=== PATIENT | male | born 1950 | race Caucasian/White ===

== ENCOUNTER 2021-01-16 09:30 | Inpatient (IN) ==
[2021-01-16 10:56] LABS: Appearance Urine Turbid (Clear); Bilirubin Urine Negative (Negative); Blood Urine 3+ (Negative); Glucose Urine UA Negative (Negative); Ketones Urine Negative (Negative); Leukocyte Esterase Urine Negative (Negative); Nitrite Urine Negative (Negative); Protein Urine 3+ (Negative); Specific Gravity Urine 1.025 (1.000-1.030); Urobilinogen Urine Negative (Negative)
[2021-01-16 10:57] LABS: Color Urine Red
[2021-01-16 11:01] LABS: Bacteria Urine Negative (Negative); Epithelial Cell Urine 0-5 /lpf (0-5); RBC Urine >30 /hpf (0-4); WBC Urine >30 /hpf (0-5)
[2021-01-16 11:02] LABS: Hematocrit (blood only) 16.5 % (42-52); Hemoglobin 5.1 g/dL (14.0-18.0); Mean Corpuscular Hemoglobin 28.3 pg (25-34); Mean Corpuscular Hgb Conc 30.9 g/dL (32-36); Mean Corpuscular Volume 91.7 fL (80-100); Mean Platelet Volume 9.4 fL (7.4-10.4); Platelet Count 526 K/uL (130-400); RDW Coefficient of Variation 20.5 % (11.5-14.5); RDW Standard Deviation 68.3 fL (36.4-46.3); White Blood Count 10.18 K/uL (4.8-10.8)
[2021-01-16 11:09] LABS: Albumin Level 2.1 gm/dl (3.4-5.0); BUN Creatinine Ratio 16.5 (10-20); Calcium 7.2 mg/dl (8.5-10.1); Creatinine Clr Calc Pharmacy 72.5 ml/min; Est GFR (African American) 72.5 ml/min; Est GFR (Non-African American) 62.6 ml/min; Potassium 3.9 mmol/L (3.5-5.1)
[2021-01-16 11:12] LABS: Albumin Globulin Ratio 0.4 (0.9-2); Bilirubin,Total 0.9 mg/dl (0.2-1); Globulin 4.8 gm/dl (2.5-4.0); Total Protein 6.9 gm/dl (6.4-8.2)
[2021-01-16 11:13] LABS: INR 1.3 (0.9-1.1); Partial Thromboplastin Ratio > 5.3; Prothrombin Time 13.1 Seconds (9.0-12.0)
[2021-01-16 11:15] LABS: Partial Thromboplastin Time > 139.0 Seconds (21.0-31.0)
[2021-01-16] MEDS ORDERED: SODIUM CHLORIDE 0.9% 250 ML IV PRN ×2 (11:17→22:16)
[2021-01-16 11:23] LABS: Anisocytosis Present; Basophils # (auto) 0.03 K/uL (0-0.2); Basophils % (auto) 0.3 %; Eosinophils # (auto) 0.02 K/uL (0-0.5); Eosinophils % (auto) 0.2 %; Hypochromasia Present; Immature Granulocytes # (auto) 0.02 K/uL (0.00-0.02); Immature Granulocytes % (auto) 0.2 %; Lymphocytes # (auto) 1.36 K/uL (1.2-3.4); Lymphocytes % (auto) 13.4 %; Monocytes # (auto) 1.23 K/uL (0.11-0.59); Monocytes % (auto) 12.1 %; Neutrophils # (auto) 7.52 K/uL (1.4-6.5); Neutrophils % (auto) 73.8 %; Stomatocytes 1+
--- NOTE | 2021-01-16 11:44 | Emergency Department Note ---
History of Present Illness General Chief complaint: Hematuria Stated complaint: PEEING BLOOD Time Seen by Provider: 01/16/21 10:17 History of Present Illness Maximum Pain Intensity: 0 This is a 70-year-old male that presents to the emergency department via private vehicle accompanied by female with complaints of "peeing blood". The patient notes that yesterday around 4 PM when he finished golfing he began to urinate blood. He states that he is currently anticoagulated on Eliquis for PE. The patient notes that he has a history of metastatic colon cancer with a stent in his colon. He also notes a colostomy. His colorectal surgeon is Dr. Bardales in [facility] and his oncologist is Dr. Layne. Patient denies any fevers, chills, nausea, vomiting, chest pain, shortness of breath or abdominal pain. Home Medications Medication Instructions Recorded Confirmed Type lactobacillus combination no.4 3 3,000 mmu cells PO QAM 10/19/18 01/16/21 History billion cell capsule (Probiotic) omeprazole magnesium 20 mg 20 mg PO QAM 10/19/18 01/16/21 History tablet,delayed release (Prilosec OTC) Super Adair Plus 1 tab PO DAILY 01/16/21 01/16/21 History apixaban 5 mg tablet (Eliquis) 5 mg PO BID 01/16/21 01/16/21 History ascorbic acid (vitamin C) 1,000 mg 1 g PO QAM 01/16/21 01/16/21 History tablet magnesium oxide-magnesium amino 133 mg PO BID 01/16/21 01/16/21 History acid chelate 133 mg tablet (Cj-Agzh-Jqebsjy) nystatin-triamcinolone 100,000 1 applic TOPICAL UD PRN 01/16/21 01/16/21 History unit/g-0.1 % topical cream ondansetron HCl 8 mg tablet 8 mg PO UD PRN 01/16/21 01/16/21 History zinc oxide 2 applic TOPICAL UD 01/16/21 01/16/21 History Allergies Allergy/AdvReac Type Severity Reaction Status Date / Time No Known Allergies Allergy Unverified 01/16/21 10:26 Past Med/Surg History Medical History Colon cancer Colon cancer metastasized to multiple sites Hydronephrosis Large bowel obstruction Pulmonary embolism Surgical History H/O colectomy H/O exploratory laparotomy H/O hernia repair Family History Father Prostate cancer Social History Smoking Status: Light tobacco smoker Tobacco Type: Cigars Hx Alcohol Use: Yes (3-4 drinks daily ) Alcohol type: beer, wine and hard liquor Hx Substance Use: No Preferred Language: Italian Communication Ability: Effective Mailing Machine Assistant Required: No Beliefs That Will Affect Care: None marital status: Current Living Situation: Spouse Current Living Situation Comment: Lives with current occupational status: retired Other Information That Helps Us Care for You: No Feels Safe at Home: Yes Safety Concerns: Feels Safe At This Time Assistive Devices: Glasses Review of Systems A total of 10 systems reviewed and were otherwise negative Physical Exam Vital Signs Vital Signs - 24 hr 01/16/21 09:42 01/16/21 10:07 01/16/21 10:30 Temperature 36.0 C L Temperature Source Temporal Artery Scan Pulse Rate 102 H 105 H 103 H Pulse Rate [Finger] Pulse Rate from SpO2 Sensor 105 H 104 H Respiratory Rate 20 21 22 Respiratory Effort / Characteristics Respiratory Depth Blood Pressure 116/77 145/82 H 124/83 Blood Pressure [Right Arm] Blood Pressure Mean 90 103 96 Blood Pressure Mean [Right Arm] Pulse Oximetry 100 100 99 Oxygen Delivery Method Room Air Sepsis Recent Fever Within 48 Hours No Sepsis New/Unexplained Change in Mental Status N/A Sepsis Action Taken by Nursing No Action Required 01/16/21 10:31 01/16/21 11:00 01/16/21 11:30 Temperature Temperature Source Pulse Rate 98 H 100 H Pulse Rate [Finger] 103 H Pulse Rate from SpO2 Sensor 98 H 100 H Respiratory Rate 16 17 24 Respiratory Effort / Characteristics Non-Labored Respiratory Depth Normal Blood Pressure 131/80 132/80 Blood Pressure [Right Arm] 124/83 Blood Pressure Mean 97 97 Blood Pressure Mean [Right Arm] 96 Pulse Oximetry 99 99 98 Oxygen Delivery Method Room Air Sepsis Recent Fever Within 48 Hours Sepsis New/Unexplained Change in Mental Status Sepsis Action Taken by Nursing 01/16/21 12:00 01/16/21 12:30 01/16/21 13:01 Temperature Temperature Source Pulse Rate 104 H 101 H 103 H Pulse Rate [Finger] Pulse Rate from SpO2 Sensor 101 H 103 H Respiratory Rate 22 22 28 H Respiratory Effort / Characteristics Respiratory Depth Blood Pressure 137/88 145/85 H 133/85 Blood Pressure [Right Arm] Blood Pressure Mean 104 105 101 Blood Pressure Mean [Right Arm] Pulse Oximetry 99 100 Oxygen Delivery Method Sepsis Recent Fever Within 48 Hours Sepsis New/Unexplained Change in Mental Status Sepsis Action Taken by Nursing 01/16/21 13:37 01/16/21 14:00 01/16/21 14:30 Temperature Temperature Source Pulse Rate 111 H 97 H 97 H Pulse Rate [Finger] Pulse Rate from SpO2 Sensor 97 H 97 H Respiratory Rate 18 23 27 H Respiratory Effort / Characteristics Respiratory Depth Blood Pressure 149/93 H 125/81 Blood Pressure [Right Arm] Blood Pressure Mean 111 95 Blood Pressure Mean [Right Arm] Pulse Oximetry 98 99 Oxygen Delivery Method Sepsis Recent Fever Within 48 Hours Sepsis New/Unexplained Change in Mental Status Sepsis Action Taken by Nursing 01/16/21 15:00 01/16/21 15:30 Temperature Temperature Source Pulse Rate 96 H Pulse Rate [Finger] Pulse Rate from SpO2 Sensor 94 H Respiratory Rate 33 H Respiratory Effort / Characteristics Respiratory Depth Blood Pressure 149/87 H 132/79 Blood Pressure [Right Arm] Blood Pressure Mean 107 96 Blood Pressure Mean [Right Arm] Pulse Oximetry 99 Oxygen Delivery Method Sepsis Recent Fever Within 48 Hours Sepsis New/Unexplained Change in Mental Status Sepsis Action Taken by Nursing VITAL SIGNS - Vital signs and nursing notes were reviewed. Stable and afebrile. GENERAL -70-year-old male appearing his stated age who is in no acute distress. Communicates well with provider and answers questions appropriately. SKIN - Without rashes. No meningeal or petechial rash. HEAD - NC/AT. LUNGS - Chest wall symmetric without accessory muscle use, intercostals retractions, or central cyanosis. Normal vesicular breath sounds CTA B/L. No wheezes, rales, or rhonchi appreciated. CARDIAC - RRR with S1/S2. No murmur, rubs, or gallops appreciated. ABDOMEN - Abdominal contour normal without pulsations or visible masses. BS normoactive all four quadrants. Left lower quadrant ostomy noted. No black tarry output or blood in the ostomy bag. No tenderness, palpable masses, hepatosplenomegaly, or ascites noted. NEUROLOGIC - Cranial nerves II through XII grossly intact. PSYCH - A&O, and cooperates fully with examiner. Pt is very pleasant and interacts well with examiner. Course Administered Medications Ascorbic Acid (Ascorbic Acid 500 Mg Tab) 1,000 mg PO QAM AD Stop: 02/16/21 08:59 Last Admin: 01/17/21 07:59 Dose: 1,000 mg Documented by: [id number] Lactobacillus Acidoph/Casei/Rhamnos (Advanced Probiotic 1250 Mg Capsule) 2 cap PO QAM AD Stop: 02/16/21 08:59 Last Admin: 01/17/21 07:59 Dose: 2 cap Documented by: [id number] Magnesium Oxide (Magnesium Oxide 400 Mg Tab) 400 mg PO BID AD Stop: 02/15/21 20:59 Last Admin: 01/17/21 21:00 Dose: 400 mg Documented by: [id number] Admin: 01/17/21 07:59 Dose: 400 mg Documented by: [id number] Admin: 01/16/21 21:48 Dose: 400 mg Documented by: [id number] Multivitamins/Minerals (Calcium 600mg + Vit D 400 Iu Tab) 1 tab PO DAILY AD Stop: 02/16/21 08:59 Last Admin: 01/17/21 07:59 Dose: 1 tab Documented by: [id number] Pantoprazole Sodium (Pantoprazole 40 Mg Tab) 40 mg PO QAM [facility] Stop: 02/16/21 08:59 Last Admin: 01/17/21 07:59 Dose: 40 mg Documented by: [id number] Discontinued Medications Furosemide (Furosemide 40 Mg/4 Ml Vial) 40 mg IV 1930 ONE Stop: 01/16/21 19:31 Last Admin: 01/16/21 22:18 Dose: Not Given Documented by: [id number] Heparin Sodium (Beef Lung) (Heparin 10 Unit/Ml 5 Ml Flush) Confirm Administered Dose 5 ml FLUSH .STK-MED ONE Stop: 01/17/21 02:04 Last Admin: 01/17/21 02:34 Dose: 5 ml Documented by: [id number] Heparin Sodium (Beef Lung) (Heparin 10 Unit/Ml 5 Ml Flush) Confirm Administered Dose 5 ml FLUSH .STK-MED ONE Stop: 01/17/21 06:15 Last Admin: 01/17/21 06:14 Dose: 5 ml Documented by: [id number] Furosemide 20 mg/ Syringe 2 mls @ 4 mls/min IV ONE ONE Stop: 01/16/21 22:46 Last Admin: 01/16/21 22:45 Dose: 4 mls/min Documented by: [id number] Ioversol (Optiray 320 100ml) 94 ml IV ONCE ONE Stop: 01/16/21 11:47 Last Admin: 01/16/21 11:46 Dose: 94 ml Documented by: [id number] Critical Care Time Critical Care Time: Yes Total Critical Care Time: 60 I have personally spent about 60 minutes of critical care time in the direct management of this patient. This includes bedside care, interpretation of diagnostic studies, and testing, discussion with consultants, patient, and family members, and other required patient management activities. This 60 minutes is in excess of all separately billable procedures. Medical Decision Making Laboratory Data Result diagrams: 01/17/21 06:13 01/17/21 06:13 Lab Results 01/16/21 01/16/21 01/16/21 Range/Units 10:05 10:08 10:08 WBC 10.18 (4.8-10.8) K/uL RBC 1.80 L (4.7-6.1) M/uL Hgb 5.1 L* (14.0-18.0) g/dL Hct 16.5 L* (42-52) % MCV 91.7 (80-100) fL MCH 28.3 (25-34) pg MCHC 30.9 L (32-36) g/dL RDW Std Deviation 68.3 H (36.4-46.3) fL RDW Coeff of Patricia 20.5 H (11.5-14.5) % Plt Count 526 H (130-400) K/uL MPV 9.4 (7.4-10.4) fL Immature Gran % (Auto) 0.2 % Neut % (Auto) 73.8 % Lymph % (Auto) 13.4 % [place] % (Auto) 12.1 % Eos % (Auto) 0.2 % Baso % (Auto) 0.3 % Reticulocyte % (Auto) 3.7 H (0.5-2.0) % Neut # (Auto) 7.52 H (1.4-6.5) K/uL Lymph # (Auto) 1.36 (1.2-3.4) K/uL [place] # (Auto) 1.23 H (0.11-0.59) K/uL Eos # (Auto) 0.02 (0-0.5) K/uL Baso # (Auto) 0.03 (0-0.2) K/uL Reticulocyte # 0.07 (0.02-0.10) 10^6/uL Immature Gran # (Auto) 0.02 (0.00-0.02) K/uL Hypochromasia Present Anisocytosis Present Stomatocytes 1+ PT (9.0-12.0) Seconds INR (0.9-1.1) APTT (21.0-31.0) Seconds PTT Ratio Sodium (136-145) mmol/L Potassium (3.5-5.1) mmol/L Chloride (98-107) mmol/L Carbon Dioxide (21-32) mmol/L Anion Gap (3-11) BUN (7-18) mg/dl Creatinine (0.6-1.4) mg/dl Est Cr Clr Drug Dosing ml/min Est GFR ( Amer) ml/min Est GFR (Non-Af Amer) ml/min BUN/Creatinine Ratio (10-20) Glucose (70-99) mg/dl Calcium (8.5-10.1) mg/dl Iron (35-175) mcg/dl TIBC (250-450) mcg/dl Transferrin (200-360) mg/dl Ferritin (8-388) ng/ml Total Bilirubin (0.2-1) mg/dl AST (15-37) U/L ALT (12-78) U/L Alkaline Phosphatase (45-117) U/L Troponin I (0-0.045) ng/ml Total Protein (6.4-8.2) gm/dl Albumin (3.4-5.0) gm/dl Globulin (2.5-4.0) gm/dl Albumin/Globulin Ratio (0.9-2) Urine Color Red Urine Appearance Turbid A (Clear) Urine pH 7.0 (4.5-7.5) Ur Specific [place] 1.025 (1.000-1.030) Urine Protein 3+ H (Negative) Urine Glucose (UA) Negative (Negative) Urine Ketones Negative (Negative) Urine Blood 3+ H (Negative) Urine Nitrite Negative (Negative) Urine Bilirubin Negative (Negative) Urine Urobilinogen Negative (Negative) Ur Leukocyte Esterase Negative (Negative) Urine RBC >30 H (0-4) /hpf Urine WBC >30 H (0-5) /hpf Ur Epithelial Cells 0-5 (0-5) /lpf Urine Bacteria Negative (Negative) COVID-19 Eval Order SARS-CoV-2 (PCR) (Negative) Blood Type Antibody Screen Crossmatch 01/16/21 01/16/21 01/16/21 Range/Units 10:09 10:09 10:09 WBC (4.8-10.8) K/uL RBC (4.7-6.1) M/uL Hgb (14.0-18.0) g/dL Hct (42-52) % MCV (80-100) fL MCH (25-34) pg MCHC (32-36) g/dL RDW Std Deviation (36.4-46.3) fL RDW Coeff of Patricia (11.5-14.5) % Plt Count (130-400) K/uL MPV (7.4-10.4) fL Immature Gran % (Auto) % Neut % (Auto) % Lymph % (Auto) % [place] % (Auto) % Eos % (Auto) % Baso % (Auto) % Reticulocyte % (Auto) (0.5-2.0) % Neut # (Auto) (1.4-6.5) K/uL Lymph # (Auto) (1.2-3.4) K/uL [place] # (Auto) (0.11-0.59) K/uL Eos # (Auto) (0-0.5) K/uL Baso # (Auto) (0-0.2) K/uL Reticulocyte # (0.02-0.10) 10^6/uL Immature Gran # (Auto) (0.00-0.02) K/uL Hypochromasia Anisocytosis Stomatocytes PT 13.1 H (9.0-12.0) Seconds INR 1.3 H (0.9-1.1) APTT > 139.0 H* (21.0-31.0) Seconds PTT Ratio > 5.3 Sodium 139 (136-145) mmol/L Potassium 3.9 (3.5-5.1) mmol/L Chloride 107 (98-107) mmol/L Carbon Dioxide 25 (21-32) mmol/L Anion Gap 7.0 (3-11) BUN 19 H (7-18) mg/dl Creatinine 1.16 (0.6-1.4) mg/dl Est Cr Clr Drug Dosing 72.5 ml/min Est GFR ( Amer) 72.5 ml/min Est GFR (Non-Af Amer) 62.6 ml/min BUN/Creatinine Ratio 16.5 (10-20) Glucose 122 H (70-99) mg/dl Calcium 7.2 L (8.5-10.1) mg/dl Iron 22 L (35-175) mcg/dl TIBC 252 (250-450) mcg/dl Transferrin 195 L (200-360) mg/dl Ferritin 40.3 (8-388) ng/ml Total Bilirubin 0.9 (0.2-1) mg/dl AST 41 H (15-37) U/L ALT 27 (12-78) U/L Alkaline Phosphatase 118 H (45-117) U/L Troponin I (0-0.045) ng/ml Total Protein 6.9 (6.4-8.2) gm/dl Albumin 2.1 L (3.4-5.0) gm/dl Globulin 4.8 H (2.5-4.0) gm/dl Albumin/Globulin Ratio 0.4 L (0.9-2) Urine Color Urine Appearance (Clear) Urine pH (4.5-7.5) Ur Specific [place] (1.000-1.030) Urine Protein (Negative) Urine Glucose (UA) (Negative) Urine Ketones (Negative) Urine Blood (Negative) Urine Nitrite (Negative) Urine Bilirubin (Negative) Urine Urobilinogen (Negative) Ur Leukocyte Esterase (Negative) Urine RBC (0-4) /hpf Urine WBC (0-5) /hpf Ur Epithelial Cells (0-5) /lpf Urine Bacteria (Negative) COVID-19 Eval Order SARS-CoV-2 (PCR) (Negative) Blood Type Antibody Screen Crossmatch 01/16/21 01/16/21 01/16/21 Range/Units 11:24 11:24 11:35 WBC (4.8-10.8) K/uL RBC (4.7-6.1) M/uL Hgb (14.0-18.0) g/dL Hct (42-52) % MCV (80-100) fL MCH (25-34) pg MCHC (32-36) g/dL RDW Std Deviation (36.4-46.3) fL RDW Coeff of Patricia (11.5-14.5) % Plt Count (130-400) K/uL MPV (7.4-10.4) fL Immature Gran % (Auto) % Neut % (Auto) % Lymph % (Auto) % [place] % (Auto) % Eos % (Auto) % Baso % (Auto) % Reticulocyte % (Auto) (0.5-2.0) % Neut # (Auto) (1.4-6.5) K/uL Lymph # (Auto) (1.2-3.4) K/uL [place] # (Auto) (0.11-0.59) K/uL Eos # (Auto) (0-0.5) K/uL Baso # (Auto) (0-0.2) K/uL Reticulocyte # (0.02-0.10) 10^6/uL Immature Gran # (Auto) (0.00-0.02) K/uL Hypochromasia Anisocytosis Stomatocytes PT (9.0-12.0) Seconds INR (0.9-1.1) APTT (21.0-31.0) Seconds PTT Ratio Sodium (136-145) mmol/L Potassium (3.5-5.1) mmol/L Chloride (98-107) mmol/L Carbon Dioxide (21-32) mmol/L Anion Gap (3-11) BUN (7-18) mg/dl Creatinine (0.6-1.4) mg/dl Est Cr Clr Drug Dosing ml/min Est GFR ( Amer) ml/min Est GFR (Non-Af Amer) ml/min BUN/Creatinine Ratio (10-20) Glucose (70-99) mg/dl Calcium (8.5-10.1) mg/dl Iron (35-175) mcg/dl TIBC (250-450) mcg/dl Transferrin (200-360) mg/dl Ferritin (8-388) ng/ml Total Bilirubin (0.2-1) mg/dl AST (15-37) U/L ALT (12-78) U/L Alkaline Phosphatase (45-117) U/L Troponin I < 0.015 (0-0.045) ng/ml Total Protein (6.4-8.2) gm/dl Albumin (3.4-5.0) gm/dl Globulin (2.5-4.0) gm/dl Albumin/Globulin Ratio (0.9-2) Urine Color Urine Appearance (Clear) Urine pH (4.5-7.5) Ur Specific [place] (1.000-1.030) Urine Protein (Negative) Urine Glucose (UA) (Negative) Urine Ketones (Negative) Urine Blood (Negative) Urine Nitrite (Negative) Urine Bilirubin (Negative) Urine Urobilinogen (Negative) Ur Leukocyte Esterase (Negative) Urine RBC (0-4) /hpf Urine WBC (0-5) /hpf Ur Epithelial Cells (0-5) /lpf Urine Bacteria (Negative) COVID-19 Eval Order Covid19 at [facility] SARS-CoV-2 (PCR) (Negative) Blood Type B Positive Antibody Screen NEGATIVE Crossmatch See Detail 01/16/21 Range/Units 11:35 WBC (4.8-10.8) K/uL RBC (4.7-6.1) M/uL Hgb (14.0-18.0) g/dL Hct (42-52) % MCV (80-100) fL MCH (25-34) pg MCHC (32-36) g/dL RDW Std Deviation (36.4-46.3) fL RDW Coeff of Patricia (11.5-14.5) % Plt Count (130-400) K/uL MPV (7.4-10.4) fL Immature Gran % (Auto) % Neut % (Auto) % Lymph % (Auto) % [place] % (Auto) % Eos % (Auto) % Baso % (Auto) % Reticulocyte % (Auto) (0.5-2.0) % Neut # (Auto) (1.4-6.5) K/uL Lymph # (Auto) (1.2-3.4) K/uL [place] # (Auto) (0.11-0.59) K/uL Eos # (Auto) (0-0.5) K/uL Baso # (Auto) (0-0.2) K/uL Reticulocyte # (0.02-0.10) 10^6/uL Immature Gran # (Auto) (0.00-0.02) K/uL Hypochromasia Anisocytosis Stomatocytes PT (9.0-12.0) Seconds INR (0.9-1.1) APTT (21.0-31.0) Seconds PTT Ratio Sodium (136-145) mmol/L Potassium (3.5-5.1) mmol/L Chloride (98-107) mmol/L Carbon Dioxide (21-32) mmol/L Anion Gap (3-11) BUN (7-18) mg/dl Creatinine (0.6-1.4) mg/dl Est Cr Clr Drug Dosing ml/min Est GFR ( Amer) ml/min Est GFR (Non-Af Amer) ml/min BUN/Creatinine Ratio (10-20) Glucose (70-99) mg/dl Calcium (8.5-10.1) mg/dl Iron (35-175) mcg/dl TIBC (250-450) mcg/dl Transferrin (200-360) mg/dl Ferritin (8-388) ng/ml Total Bilirubin (0.2-1) mg/dl AST (15-37) U/L ALT (12-78) U/L Alkaline Phosphatase (45-117) U/L Troponin I (0-0.045) ng/ml Total Protein (6.4-8.2) gm/dl Albumin (3.4-5.0) gm/dl Globulin (2.5-4.0) gm/dl Albumin/Globulin Ratio (0.9-2) Urine Color Urine Appearance (Clear) Urine pH (4.5-7.5) Ur Specific [place] (1.000-1.030) Urine Protein (Negative) Urine Glucose (UA) (Negative) Urine Ketones (Negative) Urine Blood (Negative) Urine Nitrite (Negative) Urine Bilirubin (Negative) Urine Urobilinogen (Negative) Ur Leukocyte Esterase (Negative) Urine RBC (0-4) /hpf Urine WBC (0-5) /hpf Ur Epithelial Cells (0-5) /lpf Urine Bacteria (Negative) COVID-19 Eval Order SARS-CoV-2 (PCR) NEGATIVE (Negative) Blood Type Antibody Screen Crossmatch Imaging Data Radiologist's Impression: Abdomen/Pelvis CT 01/16/21 11:[address] WITH IV CONTRAST CT DOSE: 1149.59 mGy.cm HISTORY: Hematuria. Anemia. TECHNIQUE: Multiaxial CT images of the abdomen and pelvis were performed following the use of intravenous contrast. A dose lowering technique was utilized adhering to the principles of ALARA. COMPARISON STUDY: Abdomen and pelvis CT 10/19/2018. FINDINGS: Multiple bilateral pulmonary nodules with the largest in the lingula measuring 1.8 cm. This is consistent with metastatic disease. Trace left effusion. There is a 2.6 cm soft tissue nodule within the fat-containing hiatus hernia. This is consistent with peritoneal spread of tumor. There are multiple additional scattered omental and peritoneal implants seen throughout the abdomen and pelvis consistent with metastatic disease. There is a metallic stent seen within the sigmoid colon with an irregular mass surrounding the metallic stent. This mass likely extends and invades into the the left bladder dome. There is hyperdense material within the bladder likely representing blood products. The mass also extends within the left lower quadrant soft tissues and into the perirectal soft tissues. There is left greater than right peritoneal thickening consistent with metastatic disease. Small focus of extraluminal gas extending to the sigmoid stent on image 316. This is consistent with microperforation/ulceration of the surrounding tumor. There is a small amount of ascites and mild body wall edema. There is a 2.3 cm hypodense lesion within the right hepatic lobe. This likely represents metastatic disease. The main portal vein is patent. The spleen and adrenal glands unremarkable. There are a few right renal cysts. There is moderate left hydroureteronephrosis. The ureters dilated to the level of the infiltrative left sigmoid mass which causes the site of obstruction. There are are 2 large bladder stones present. There is thrombus identified within the left external iliac vein and extending into the left common femoral vein. There is a large ventral abdominal hernia containing multiple loops of bowel and a left lower quadrant ostomy. There is irregular supraumbilical soft tissue best seen on image 322. This also likely represents metastatic disease. This measures 7.6 cm. No dilated loops of bowel to suggest an obstruction. There is an irregular filling defect within the left side of bladder Image 369 which measures 2.6 cm. IMPRESSION: 1. There is a large infiltrative mass surrounding the sigmoid stent as described above. This extends into the left bladder dome. There is associated hyperdense material within the bladder which likely represents blood products. An irregular filling defect within the left bladder lumen as described above may represent tension of tumor. 2. Extensive metastatic disease within the chest, abdomen, and pelvis as described above with associated peritoneal carcinomatosis and a small amount of ascites. 3. A 2.3 cm lesion within the right hepatic lobe also likely representing metastatic disease. 4. 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 5. Small focus of extraluminal gas extending to the sigmoid stent. This is consistent with microperforation/ulceration of the surrounding tumor. 6. Additional findings as described above. ACT 112: Negative or not required by law. Electronically signed by: Jeffery Garsia M.D. 01/16/2021 1:05 PM MDM Narrative Patient was seen and evaluated as above in room C07. Review was performed of nursing notes and vital signs. I did review pertinent previous visits and patient history. After obtaining a thorough history and physical examination the above work up was performed. Patient presents to us today with painless hematuria. No other symptoms. He is nontoxic on examination. Vital signs stable. Abdominal exam is benign. Options of care were discussed with the patient. Patient does have a history of metastatic colon cancer. He is currently in [facility] for history of PE. Laboratory studies were obtained. No leukocytosis. There is hemoglobin of 5.1. This is suspected to be an acute finding. INR 1.3. No emergent metabolic disturbance. BUN 19. Glucose 122. Calcium 7.2. Iron 22. Transferrin 195. Troponin negative. Urinalysis does not suggest infection. Covid testing negative. Patient was consented and consent form was signed by attending physician. 3 units of blood were ordered. 1 unit to be transfused here in the ED. Case discussed with the hospitalist. CT scan was obtained of the abdomen and pelvis. This was pending during my discussion with the hospitalist. This resulted. I did review this with the patient. The hospitalist team did asked that I review this with the in-house general surgery team. I discussed this with Janette Reddy PA-C. She reviewed this with her attending physician. Decision was made at this time that the patient could stay here to be transfused however if he did require surgical intervention would require transfer. I believe this is reasonable. Please refer to further documentation regarding her stay. I did perform a rectal exam on the patient. No evidence of bright red blood. No hemorrhoids. Hemoccult although did show a small amount of blue after development was added I do not suspect this to be a true Hemoccult positive sample as there was essentially no stool or other products found within the rectal region. Please refer to further documentation regarding his stay. Case was discussed with the attending physician. EKG was reviewed by myself and found to be Normal Sinus Rhythm at a rate of 104 beats per minute and per my interpretation reveals sinus tachycardia rate of 104 bpm. This was compared EKG of August 27, 2018. No ST elevation. QTc 491. QRS 82. An order was placed for continuous cardiac monitoring. The monitor shows a rate of 100 with sinus rhythm. I attest that I have personally reviewed the patient medication list. I attest that I have reviewed the patient's blood pressure and it was found to be slightly elevated. GCS: 15 In the evaluation and treatment of this patient the following differential diagnoses were entertained: Acute abdomen, GI bleed, renal hemorrhage, metastatic cancer, among others. 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 Bardales at [facility] who presents to ED with gross hematuria. PE: AFVSS, NAD NC/AT RRR CTAB Abd soft NT/ND. Ostomy site c/d/i. Ext: no edema, erythema Neuro: grossly intact Plan: H/H 5.1/16.5. CT demonstrates known metastatic disease with tumor invading bladder. Patient consented for blood transfusion. Remained hemodynamically stabl e. Admit for further management. I reviewed the patient's past medical history, medications, and visit nursing notes. I discussed the case with the physician certified registered dental assistant, examined the patient, and agree with the findings and plan as documented in PAC Bamat's note.
[2021-01-16] MEDS ORDERED: OPTIRAY 320 100ml IV ONE (11:46)
[2021-01-16 12:52] LABS: Reticulocyte % 3.7 % (0.5-2.0); Reticulocytes # 0.07 10^6/uL (0.02-0.10)
[2021-01-16 13:06] LABS: Ferritin 40.3 ng/ml (8-388)
--- NOTE | 2021-01-16 13:07 | CT Scan Report ---
ABDOMEN AND PELVIS CT WITH IV CONTRAST CT DOSE: 1149.59 mGy.cm HISTORY: Hematuria. Anemia. TECHNIQUE: Multiaxial CT images of the abdomen and pelvis were performed following the use of intrave nous contrast. A dose lowering technique was utilized adhering to the principles of ALARA. COMPARISON STUDY: Abdomen and pelvis CT 10/19/2018. FINDINGS: Multiple bilateral pulmonary nodules with the largest in the lingula measuring 1.8 cm. This is consistent with metastatic disease. Trace left effusion. There is a 2.6 cm soft tissue nodule wit hin the fat-containing hiatus hernia. This is consistent with peritoneal spread of tumor. There are m ultiple additional scattered omental and peritoneal implants seen throughout the abdomen and pelvis c onsistent with metastatic disease. There is a metallic stent seen within the sigmoid colon with an ir regular mass surrounding the metallic stent. This mass likely extends and invades into the the left b ladder dome. There is hyperdense material within the bladder likely representing blood products. The mass also extends within the left lower quadrant soft tissues and into the perirectal soft tissues. T here is left greater than right peritoneal thickening consistent with metastatic disease. Small focus of extraluminal gas extending to the sigmoid stent on image 316. This is consistent with microperfor ation/ulceration of the surrounding tumor. There is a small amount of ascites and mild body wall andrew a. There is a 2.3 cm hypodense lesion within the right hepatic lobe. This likely represents metastati c disease. The main portal vein is patent. The spleen and adrenal glands unremarkable. There are a fe w right renal cysts. There is moderate left hydroureteronephrosis. The ureters dilated to the level o f the infiltrative left sigmoid mass which causes the site of obstruction. There are are 2 large blad chandni stones present. There is thrombus identified within the left external iliac vein and extending in to the left common femoral vein. There is a large ventral abdominal hernia containing multiple loops of bowel and a left lower quadrant ostomy. There is irregular supraumbilical soft tissue best seen on image 322. This also likely represents metastatic disease. This measures 7.6 cm. No dilated loops of bowel to suggest an obstruction. There is an irregular filling defect within the left side of bladde r Image 369 which measures 2.6 cm. IMPRESSION: 1. There is a large infiltrative mass surrounding the sigmoid stent as described above. This extends into the left bladder dome. There is associated hyperdense material within the bladder which likely r epresents blood products. An irregular filling defect within the left bladder lumen as described abov e may represent tension of tumor. 2. Extensive metastatic disease within the chest, abdomen, and pelvis as described above with associa litzy peritoneal carcinomatosis and a small amount of ascites. 3. A 2.3 cm lesion within the right hepatic lobe also likely representing metastatic disease. 4. 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 5. Small focus of extraluminal gas extending to the sigmoid stent. This is consistent with microperfo ration/ulceration of the surrounding tumor. 6. Additional findings as described above. ACT 112: Negative or not required by law. Electronically signed by: Jeffery Garsia M.D. 01/16/2021 1:05 PM
--- NOTE | 2021-01-16 15:11 | Surgery Consultation ---
Date of Consultation January 16, 2021 Assessment & Plan (1) Hematuria: Colon cancer invading bladder. No acute abdominal findings, being admitted by medicine for further management, anticipate transfusion and holding Eliquis will be primary treatment. Discussed with urology, no need for additional eval at this point unless he develops retention of clot. Will continue to follow along. 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 Bardales now with hematuria starting yesterday afternoon and continuing today. Has had some hematuria in the past but this much or as long. [place] a little fatigued yesterday after golfing 18 holes, otherwise feeling fine. Allergies Allergy/AdvReac Type Severity Reaction Status Date / Time No Known Allergies Allergy Unverified 01/16/21 10:26 Home Medications Medication Instructions Recorded Confirmed Type lactobacillus combination no.4 3 3,000 mmu cells PO QAM 10/19/18 01/16/21 History billion cell capsule (Probiotic) omeprazole magnesium 20 mg 20 mg PO QAM 10/19/18 01/16/21 History tablet,delayed release (Prilosec OTC) Super Adair Plus 1 tab PO DAILY 01/16/21 01/16/21 History apixaban 5 mg tablet (Eliquis) 5 mg PO BID 01/16/21 01/16/21 History ascorbic acid (vitamin C) 1,000 mg 1 g PO QAM 01/16/21 01/16/21 History tablet magnesium oxide-magnesium amino 133 mg PO BID 01/16/21 01/16/21 History acid chelate 133 mg tablet (Yp-Nfje-Zyfbeyi) nystatin-triamcinolone 100,000 1 applic TOPICAL UD PRN 01/16/21 01/16/21 History unit/g-0.1 % topical cream ondansetron HCl 8 mg tablet 8 mg PO UD PRN 08/10/21 08/10/21 History zinc oxide 2 applic TOPICAL UD 01/16/21 01/16/21 History Patient History Medical History Colon cancer Colon cancer metastasized to multiple sites Hydronephrosis Large bowel obstruction Pulmonary embolism Surgical History H/O colectomy H/O exploratory laparotomy H/O hernia repair Family History Father Prostate cancer Social History Smoking Status: Light tobacco smoker Tobacco Type: Cigars Hx Alcohol Use: Yes (3-4 drinks daily ) Alcohol type: beer, wine and hard liquor Hx Substance Use: No Preferred Language: Serbian Communication Ability: Effective Superintendent Track Required: No Beliefs That Will Affect Care: None marital status: Current Living Situation: Spouse Current Living Situation Comment: Lives with current occupational status: retired Other Information That Helps Us Care for You: No Feels Safe at Home: Yes Safety Concerns: Feels Safe At This Time Assistive Devices: None Review of Systems Constitutional: no fever and no chills Gastrointestinal: + problem reported (ocassional rectal bleeding/drainage); no abdominal pain Genitourinary: + hematuria Physical Exam Constitutional: WD/WN, vitals as above Gastrointestinal (Abdomen): Inspection/Auscultation: + abdominal surgical scar (midline, Left side ostomy); abdomen not distended Percussion/Palpation: abdomen soft; abdomen nontender Results & Data ([facility]) Vital Signs (Past 12 Hours) Vital Signs Temp Pulse Pulse Resp BP BP Pulse Ox 01/16/21 10:31 103 H 16 124/83 99 01/16/21 09:42 36.0 C L 102 H 20 116/77 100 PG Care Time/CCT Total # of Minutes Spent Total Time Spent with Patient: Total time spent is greater than 50% in coordination of care (as documented) at patient's floor/unit and/or counseling patient: Coding Level of Care Code 51796 Initial Inpt Care Lvl 2 Diagnoses Hematuria R31.9
--- NOTE | 2021-01-16 15:33 | Electrocardiogram Report ---
Test Reason : Blood Pressure : / mmHG Vent. Rate : 104 BPM Atrial Rate : 104 BPM P-R Int : 130 ms QRS Dur : 082 ms QT Int : 374 ms P-R-T Axes : 023 062 056 degrees QTc Int : 491 ms Sinus tachycardia Otherwise normal ECG When compared with ECG of 27-AUG-2018 15:44, Borderline criteria for Inferior infarct are no longer Present T wave inversion no longer evident in Inferior leads T wave inversion no longer evident in Anterior leads Confirmed by Yoshi Muñiz ([id number]) on 01/16/2021 3:32:27 PM Referred By: REFERRED SELF Confirmed By:Dileep Muñiz
--- NOTE | 2021-01-16 15:38 | History & Physical Report ---
Date of Service January 16, 2021 Assessment & Plan (1) Hematuria: Plan: This is a 70yo M with a PMH of metastatic colon cancer (s/p stenting x 2 in 2017 & 2018 followed by diverting ile[place] [address] Bardales), history of PE on Eliquis and other medical problems listed below who presents with gross hematuria since yesterday. H/H 5.1/16.5 Gross hematuria in setting of metastatic colon ca with extension into bladder Consented, type & crossed, ordered 3u prbcs Hold Eliquis for now Giving 40mg IV Lasix after 2nd unit H&H at 2000 General surgery evaluated patient - no acute abdominal findings, will follow patient, low threshold to transfer to [facility] if needed Case discussed with urology - no need for additional evaluation at this point unless he develops retention of clot (2) Pulmonary embolism: Plan: Has completed 3 months of treatment for PE. Hold Eliquis for now in setting of acute bleeding Will plan to resume treatment once gross hematuria subsides, H/H improves (3) Colon cancer metastasized to multiple sites: Plan: H/o metastatic colon cancer (s/p stenting x 2 in 2017 & 2018 followed by diverting ileostomy [place] [address] Bardales) Following with Dr. Layne of heme/onc, chemo regimen recently changed to [place] (Trifluridine-tipiracil) but has not been able to start yet Has follow up appointment with Dr. Bardales in [place] on January 19 DVT Ppx: holding eliquis in setting of acute bleeding Code status: FULL PCP: [facility] Dispo: Admitted to PCU. Plan to return home once medically stable. Patient seen in collaboration with Dr. Encarnacion. Please see addendum. History of Present Illness Chief Complaint: hematuria Primary Care Provider: Collin Juarez MD This is a 70yo M with a PMH of metastatic colon cancer (s/p stenting x 2 in 2017 & 2018 followed by diverting ile[place] [address] Bardales), history of PE on Eliquis and other medical problems listed below who presents with gross hematuria since yesterday. Endorses some light pink color in urine last month that resolved. After golfing 18 holes yesterday, patient returned home and had multiple episodes of gross hematuria. Denies any bright red blood or black output in ostomy bag. Denies any lightheadedness, visual changes, chest pain, palpitations or shortness of breath. Is due for follow-up with Dr. Bardales his colorectal surgeon in [place] this Friday. Denies any fever or chills. No nausea, vomiting, abdominal pain, dysuria or change to output in colostomy bag. Recently had chemo regimen changed by Dr. Layne to [place] (Trifluridine- tipiracil) but has not been able to start yet. Allergies Allergy/AdvReac Type Severity Reaction Status Date / Time No Known Allergies Allergy Unverified 01/16/21 10:26 Home Medications Medication Instructions Recorded Confirmed Type lactobacillus combination no.4 3 3,000 mmu cells PO QAM 10/19/18 01/16/21 History billion cell capsule (Probiotic) omeprazole magnesium 20 mg 20 mg PO QAM 10/19/18 01/16/21 History tablet,delayed release (Prilosec OTC) Super Adair Plus 1 tab PO DAILY 01/16/21 01/16/21 History apixaban 5 mg tablet (Eliquis) 5 mg PO BID 01/16/21 01/16/21 History ascorbic acid (vitamin C) 1,000 mg 1 g PO QAM 01/16/21 01/16/21 History tablet magnesium oxide-magnesium amino 133 mg PO BID 01/16/21 01/16/21 History acid chelate 133 mg tablet (Cp-Jawz-Odpkupk) nystatin-triamcinolone 100,000 1 applic TOPICAL UD PRN 01/16/21 01/16/21 History unit/g-0.1 % topical cream ondansetron HCl 8 mg tablet 8 mg PO UD PRN 01/16/21 01/16/21 History zinc oxide 2 applic TOPICAL UD 01/16/21 01/16/21 History Past Med/Surg History Medical History Colon cancer Colon cancer metastasized to multiple sites Hydronephrosis Large bowel obstruction Pulmonary embolism Surgical History H/O colectomy H/O exploratory laparotomy H/O hernia repair Family History Father Prostate cancer Social History Smoking Status: Light tobacco smoker Tobacco Type: Cigars Hx Alcohol Use: Yes (3-4 drinks daily ) Alcohol type: beer, wine and hard liquor Hx Substance Use: No Preferred Language: Albanian Communication Ability: Effective End User Support Specialist Required: No Beliefs That Will Affect Care: None marital status: Current Living Situation: Spouse Current Living Situation Comment: Lives with current occupational status: retired Other Information That Helps Us Care for You: No Feels Safe at Home: Yes Safety Concerns: Feels Safe At This Time Assistive Devices: Denture - Upper, Denture - Lower and Glasses Review of Systems Review of Systems: At least ten systems reviewed and negative except as noted in the HPI. Physical Exam Physical Exam: General Appearance: WD/WN, vitals as above, NAD, sitting up in bed, pleasant, conversing easily Head: normocephalic, atraumatic Eyes: normal inspection, PERRL, conjunctivae normal, anicteric sclerae ENT: external ear and nose normal, oropharynx normal Neck: normal visual inspection, trachea midline, no thyromegaly Respiratory: normal respiratory effort, lungs clear to auscultation, no wheeze, rales, rhonchi. No accessory muscle use Cardiovascular: regular rate, rhythm, no murmur, normal peripheral pulses, no BLE edema. Vessels: no JVD Chest: normal inspection of chest Abdomen/GI: normal bowel sounds, soft, nontender, + ostomy with no output, hernia RLQ, no hepatosplenomegaly Extremities/Musculoskeletal: no cyanosis or clubbing, extremities motor strength 5/5. 2+ pitting edema LLE Neurologic: PERRL, EOMI, accommodation nl, no face palsy, no dysarthria, CN's II-XI intact bilaterally and moves all extremities Psychiatric: A+Ox3, euthymic affect Skin: no rashes, normal color, warm/dry Results & Data Results & Data ([facility]) Vital Signs (Past 12 Hours) Vital Signs Temp Pulse Pulse Resp BP BP Pulse Ox 01/16/21 15:00 149/87 H 01/16/21 14:30 97 H 27 H 125/81 99 01/16/21 14:00 97 H 23 149/93 H 98 01/16/21 13:37 111 H 18 01/16/21 13:01 103 H 28 H 133/85 100 01/16/21 12:30 101 H 22 145/85 H 99 01/16/21 12:00 104 H 22 137/88 01/16/21 11:30 100 H 24 132/80 98 01/16/21 11:00 98 H 17 131/80 99 01/16/21 10:31 103 H 16 124/83 99 01/16/21 10:30 103 H 22 124/83 99 01/16/21 10:07 105 H 21 145/82 H 100 01/16/21 09:42 36.0 C L 102 H 20 116/77 100 Laboratory Results Short CBC 01/16/21 Range/Units 10:08 WBC 10.18 (4.8-10.8) K/uL Hgb 5.1 L* (14.0-18.0) g/dL Hct 16.5 L* (42-52) % Plt Count 526 H (130-400) K/uL BMP 01/16/21 10:09 Sodium 139 Potassium 3.9 Chloride 107 Carbon Dioxide 25 BUN 19 H Creatinine 1.16 Glucose 122 H Calcium 7.2 L Cardiac Enzymes 01/16/21 Range/Units 11:24 Troponin I < 0.015 (0-0.045) ng/ml Liver Function 01/16/21 Range/Units 10:09 Total Bilirubin 0.9 (0.2-1) mg/dl AST 41 H (15-37) U/L ALT 27 (12-78) U/L Alkaline Phosphatase 118 H (45-117) U/L Albumin 2.1 L (3.4-5.0) gm/dl Urine 01/16/21 Range/Units 10:05 Urine Color Red Urine Appearance Turbid A (Clear) Urine pH 7.0 (4.5-7.5) Ur Specific [place] 1.025 (1.000-1.030) Urine Protein 3+ H (Negative) Urine Glucose (UA) Negative (Negative) Diagnostic Findings Abdomen/Pelvis CT 01/16/21 11:[address] WITH IV CONTRAST CT DOSE: 1149.59 mGy.cm HISTORY: Hematuria. Anemia. TECHNIQUE: Multiaxial CT images of the abdomen and pelvis were performed following the use of intravenous contrast. A dose lowering technique was ut ilized adhering to the principles of ALARA. COMPARISON STUDY: Abdomen and pelvis CT 10/19/2018. FINDINGS: Multiple bilateral pulmonary nodules with the largest in the lingula measuring 1.8 cm. This is consistent with metastatic disease. Trace left effusion. There is a 2.6 cm soft tissue nodule within the fat-containing hiatus hernia. This is consistent with peritoneal spread of tumor. There are multiple additional scattered omental and peritoneal implants seen throughout the abdomen and pelvis consistent with metastatic disease. There is a metallic stent seen within the sigmoid colon with an irregular mass surrounding the metallic stent. This mass likely extends and invades into the the left bladder dome. There is hyperdense material within the bladder likely representing blood products. The mass also extends within the left lower quadrant soft tissues and into the perirectal soft tissues. There is left greater than right peritoneal thickening consistent with metastatic disease. Small focus of extraluminal gas extending to the sigmoid stent on image 316. This is consistent with microperforation/ulceration of the surrounding tumor. There is a small amount of ascites and mild body wall edema. There is a 2.3 cm hypodense lesion within the right hepatic lobe. This likely represents metastatic disease. The main portal vein is patent. The spleen and adrenal glands unremarkable. There are a few right renal cysts. There is moderate left hydroureteronephrosis. The ureters dilated to the level of the infiltrative left sigmoid mass which causes the site of obstruction. There are are 2 large bladder stones present. There is thrombus identified within the left external iliac vein and extending into the left common femoral vein. There is a large ventral abdominal hernia containing multiple loops of bowel and a left lower quadrant ostomy. There is irregular supraumbilical soft tissue best seen on image 322. This also likely represents metastatic disease. This measures 7.6 cm. No dilated loops of bowel to suggest an obstruction. There is an irregular filling defect within the left side of bladder Image 369 which measures 2.6 cm. IMPRESSION: 1. There is a large infiltrative mass surrounding the sigmoid stent as described above. This extends into the left bladder dome. There is associated hyperdense material within the bladder which likely represents blood products. An irregular filling defect within the left bladder lumen as described above may represent tension of tumor. 2. Extensive metastatic disease within the chest, abdomen, and pelvis as described above with associated peritoneal carcinomatosis and a small amount of ascites. 3. A 2.3 cm lesion within the right hepatic lobe also likely representing metastatic disease. 4. 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 5. Small focus of extraluminal gas extending to the sigmoid stent. This is consistent with microperforation/ulceration of the surrounding tumor. 6. Additional findings as described above. ACT 112: Negative or not required by law. Electronically signed by: Jeffery Garsia M.D. 01/16/2021 1:05 PM Code Status & VTE Plan VTE Prophylaxis Plan VTE Prophylaxis will be ordered: No Supervising Physician Co-Signing Physician Notes Attending addendum The patient was seen and examined in telemetry unit He has been feeling much better since admission and getting blood transfusion He complains to have hematuria since yesterday after playing golf. No history of injury No history of bleeding from the rectum and/or any other areas He has not been complaining of any symptoms secondary to low hemoglobin On examination Lying in bed comfortably Hemodynamically stable with heart rate of 100 and blood pressure 144/91 Chestclear to auscultate bilaterally HeartS1-S2 Abdomenmildly distended, surgical scar mid lower abdomen, colostomy site is intact with ventral hernia on the right side of mid abdomen, bowel sounds present Extremities-1+ edema on the left, calf tenderness CABLE INSTALLER REPAIRER HELPER-alert, awake and oriented x3 Admission labs, imaging studies and EKG reviewed Has hematuria with very low hemoglobin of 5.1 Has been receiving chemo for colon cancer and last chemo was done about 1 month ago Has been on Eliquis for pulmonary embolism Will get blood transfusion at least 2 units for now and more if needed Surgery consulted and neurology will be consulted Agree with assessment and plan as outlined above by ANAT Mak Dr
[2021-01-16] MEDS ORDERED: FUROSEMIDE 40 MG in SYRINGE 0 ML IV ONE (17:54)
[2021-01-16] MEDS ORDERED: ONDANSETRON INJ 2 MG/ML 2 ML VIAL IV PRN (17:54)
[2021-01-16] MEDS ORDERED: ACETAMINOPHEN 325 MG TAB PO PRN (17:54)
[2021-01-16] MEDS ORDERED: POLYETHYLENE (MIRALAX) 17 GM PACK PO PRN (17:54)
[2021-01-16] MEDS ORDERED: BUTT PASTE (ZINC OXIDE 16%) 171 APPLN/57 GM JAR EXT PRN (18:45)
[2021-01-16] MEDS ORDERED: FUROSEMIDE 40 MG/4 ML VIAL IV ONE (19:30)
[2021-01-16] MEDS: MAGNESIUM OXIDE 400 MG TAB PO SCH (21:48)
[2021-01-16 22:08] LABS: Hematocrit (blood only) 23.4 % (42-52); Hemoglobin 7.3 g/dL (14.0-18.0)
[2021-01-16] MEDS ORDERED: FUROSEMIDE 20 MG in SYRINGE 0 ML IV ONE (22:45)
[2021-01-17 06:46] LABS: Hematocrit (blood only) 25.6 % (42-52); Hemoglobin 8.1 g/dL (14.0-18.0); Mean Corpuscular Hemoglobin 28.4 pg (25-34); Mean Corpuscular Hgb Conc 31.6 g/dL (32-36); Mean Corpuscular Volume 89.8 fL (80-100); Mean Platelet Volume 9.5 fL (7.4-10.4); Platelet Count 340 K/uL (130-400); RDW Coefficient of Variation 19.2 % (11.5-14.5); Red Blood Count 2.85 M/uL (4.7-6.1); White Blood Count 7.23 K/uL (4.8-10.8)
[2021-01-17 07:23] LABS: BUN Creatinine Ratio 17.2 (10-20); Calcium 7.7 mg/dl (8.5-10.1); Est GFR (African American) 75.7 ml/min; Est GFR (Non-African American) 65.3 ml/min; Potassium 3.6 mmol/L (3.5-5.1)
[2021-01-17] MEDS: MAGNESIUM OXIDE 400 MG TAB PO SCH ×2 (07:59→21:00)
[2021-01-17] MEDS: ASCORBIC ACID 500 MG TAB PO SCH (07:59)
[2021-01-17] MEDS: PANTOprazole 40 MG TAB PO SCH (07:59)
[2021-01-17] MEDS: CALCIUM 600MG + VIT D 400 IU TAB PO SCH (07:59)
[2021-01-17] MEDS: ADVANCED PROBIOTIC 1250 MG CAPSULE PO SCH (07:59)
--- NOTE | 2021-01-17 09:19 | Urology Consultation ---
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, also with bladder calculi We had a discussion today about options I strongly favor continued observation and avoidance of any intervention unless there are no other choices Any intervention would be at best palliative is resection of any direct invasion into the bladder is not safe, appropriate, nor feasible without risking a substantial injury to the bladder and fistula formation Bladder stones could theoretically be treated but I strongly suspect that is the direct invasion into the bladder not the stones are causing hematuria Overall he seems to be clinically improving and he is in remarkably good shape considering his state of disease, with that in mind I think a conservative approach that does not negatively impact his quality of life is by far the most preferential option History of Present Illness Attending Physician: Benji Encarnacion MD History of Present Illness Unfortunate 70-year-old gentleman with metastatic colorectal cancer who remains amazingly active and healthy in appearance despite his significant disease He was admitted after experiencing gross hematuria This occurred in the midst of a round of golf He reports he has been able to void adequately His hemoglobin was 5 on arrival and is been transfused with an appropriate rise in hemoglobin Interestingly he experienced no symptoms of anemia, no dizziness, no severe fatigue He reports that he has had hematuria in the past, it is always been self-limited and this was somewhat more significant He is also on Eliquis which may have contributed to the increase in bleeding He reports that his urine is clearing slightly now and he still continues to empty his bladder adequately On CT evaluation at time of arrival he appears to have direct extension of tumor into the dome of the bladder as well as tumor abutting the lateral aspect of the bladder wall He also has 2 stones within the bladder and some hydronephrosis bilaterally Allergies Allergy/AdvReac Type Severity Reaction Status Date / Time No Known Allergies Allergy Unverified 01/16/21 10:26 Home Medications Medication Instructions Recorded Confirmed Type lactobacillus combination no.4 3 3,000 mmu cells PO QAM 10/19/18 01/16/21 History billion cell capsule (Probiotic) omeprazole magnesium 20 mg 20 mg PO QAM 10/19/18 01/16/21 History tablet,delayed release (Prilosec OTC) Super Adair Plus 1 tab PO DAILY 01/16/21 01/16/21 History apixaban 5 mg tablet (Eliquis) 5 mg PO BID 01/16/21 01/16/21 History ascorbic acid (vitamin C) 1,000 mg 1 g PO QAM 01/16/21 01/16/21 History tablet magnesium oxide-magnesium amino 133 mg PO BID 01/16/21 01/16/21 History acid chelate 133 mg tablet (Xn-Ufye-Csoxpoo) nystatin-triamcinolone 100,000 1 applic TOPICAL UD PRN 01/16/21 01/16/21 History unit/g-0.1 % topical cream ondansetron HCl 8 mg tablet 8 mg PO UD PRN 01/16/21 01/16/21 History zinc oxide 2 applic TOPICAL UD 01/16/21 01/16/21 History Patient History Medical History Colon cancer Colon cancer metastasized to multiple sites Hydronephrosis Large bowel obstruction Pulmonary embolism Surgical History H/O colectomy H/O exploratory laparotomy H/O hernia repair Family History Father Prostate cancer Social History Smoking Status: Light tobacco smoker Tobacco Type: Cigars Hx Alcohol Use: Yes (3-4 drinks daily ) Alcohol type: beer, wine and hard liquor Hx Substance Use: No Preferred Language: Welsh Communication Ability: Effective 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 Beliefs That Will Affect Care: None marital status: Current Living Situation: Spouse Current Living Situation Comment: Lives with current occupational status: retired Other Information That Helps Us Care for You: No Feels Safe at Home: Yes Safety Concerns: Feels Safe At This Time Assistive Devices: None Review of Systems Constitutional: no fever, no chills and no fatigue Eyes: no worsening vision Ear, Nose, Mouth, Throat: no facial pain and no pain with swallowing Respiratory: no cough and no dyspnea Cardiovascular: no chest pain and no palpitations Gastrointestinal: no abdominal pain, no nausea and no vomiting Reports that he is in his standard abdominal state Genitourinary: + hematuria Musculoskeletal: no back pain Integumentary: no rash and no urticaria Neurologic: no gait abnormality and no unsteadiness Psychiatric: no behavioral changes and no depression Endocrine: no fatigue Physical Exam Physical Exam: Doubly healthy-appearing Constitutional: well developed and well nourished Neck: neck nontender Respiratory: normal respiratory effort; no respiratory distress and does not use accessory muscles Cardiovascular: Rate/Rhythm: regular rate Vessels: radial pulses present Extremities: no edema Gastrointestinal (Abdomen): Inspection/Auscultation: abdomen normal to inspection Ileostomy Musculoskeletal: Head/Neck/Chest: normocephalic and head atraumatic Extremities: extremities normal to inspection Skin: no rashes and no lesions Trauma: no evidence of skin trauma Neurologic: awake; not obtunded Speech / Cognition: normal speech Motor/Sensory: no tremor Psychiatric: Orientation: alert and oriented x 3 Genitourinary: no CVA tenderness Lymphatic: no lymphadenopathy Results & Data ([facility]) Vital Signs (Past 12 Hours) Vital Signs Temp Pulse Pulse Resp BP BP Pulse Ox 01/17/21 07:54 91 H 01/17/21 07:33 36.4 C L 95 H 18 142/79 H 100 01/17/21 03:51 99 H 01/17/21 01:59 36.9 C 99 H 16 120/76 97 01/17/21 01:53 36.9 C 99 H 16 120/76 97 01/17/21 01:43 36.9 C 96 H 16 120/76 97 01/17/21 00:43 36.8 C 99 H 16 122/75 98 01/16/21 23:43 37.1 C 99 H 18 133/85 99 01/16/21 23:13 37.0 C 106 H 20 127/82 98 01/16/21 22:58 36.8 C 106 H 20 117/83 98 01/16/21 22:42 37.1 C 97 H 16 135/78 97 PG Care Time/CCT Total # of Minutes Spent Total Time Spent with Patient: Total time spent is greater than 50% in coordination of care (as documented) at patient's floor/unit and/or counseling patient: Coding Level of Care Code 29731 Inpt Consult Level 4 Diagnoses Hematuria R31.9
--- NOTE | 2021-01-17 12:17 | Surgery Progress Note ---
Date of Service January 17, 2021 Assessment & Plan (1) Hematuria: Plan: -Hgb improved -Continue to hold Eliquis -If continues to tolerate diet without abdominal pain and Hgb stable, ok to discharge home (2) Colon cancer metastasized to multiple sites: Admission and Anticipated Discharge Date Admission Date: January 16, 2021 Subjective Pt seen and examined. No abdominal pain. +Ostomy output. Hematuria is improving. Review of Systems Constitutional: no fever and no chills Physical Exam Constitutional: WD/WN, vitals as above Gastrointestinal (Abdomen): Inspection/Auscultation: abdomen not distended Percussion/Palpation: abdomen soft; abdomen nontender and no guarding +Ostomy output Results & Data ([facility]) Vital Signs (Past 12 Hours) Vital Signs Temp Pulse Pulse Resp BP BP Pulse Ox 01/17/21 11:22 36.6 C 94 H 18 119/73 99 01/17/21 07:54 91 H 01/17/21 07:33 36.4 C L 95 H 18 142/79 H 100 01/17/21 03:51 99 H 01/17/21 01:59 36.9 C 99 H 16 120/76 97 01/17/21 01:53 36.9 C 99 H 16 120/76 97 01/17/21 01:43 36.9 C 96 H 16 120/76 97 01/17/21 00:43 36.8 C 99 H 16 122/75 98 Laboratory Results Hgb 8.1 PG Care Time/CCT Total # of Minutes Spent Total Time Spent with Patient: Total time spent is greater than 50% in coordination of care (as documented) at patient's floor/unit and/or counseling patient: Coding Level of Care Code 60154 Subseq Hosp Care Lvl 1 Diagnoses Hematuria R31.9 Colon cancer metastasized to multiple sites C18.9
--- NOTE | 2021-01-17 16:12 | Hospitalist Progress Note ---
Date of Service January 17, 2021 Assessment & Plan (1) Hematuria: Plan: This is a 70yo M with a PMH of metastatic colon cancer (s/p stenting x 2 in 2017 & 2018 followed [place] [address] Bardales), history of PE on Eliquis and other medical problems listed below who presents with gross hematuria since yesterday. H/H 5.1/16.5 Acute blood loss anemia in setting of metastatic Colon CA invading bladder causing gross hematuria Hold Eliquis for now Status post 2 units of PRBC Received 40mg IV Lasix after 2nd unit Globin 8.1 as of 01/17/2021 General surgery evaluated patient - no acute abdominal findings, will follow patient, low threshold to transfer to [facility] needed Case discussed with urology - no need for additional evaluation at this point unless he develops retention of colon Appreciate urology input and recommendation Patient remains stable-we will keep him overnight and if hemoglobin remains stable will be discharged home tomorrow (2) Pulmonary embolism: Plan: Has completed 3 months of treatment for PE. Hold Eliquis for now in setting of acute bleeding Will plan to resume treatment once gross hematuria subsides, H/H improves Eliquis is on hold We will keep holding until he sees his colorectal surgeon (3) Colon cancer metastasized to multiple sites: Plan: H/o metastatic colon cancer (s/p stenting x 2 in 2017 & 2018 followed by diverting ile[place] [address] Bardales) Following with Dr. Layne of heme/onc, chemo regimen recently changed to Lonsurf (Trifluridine-tipiracil) but has not been able to start yet Has follow up appointment with Dr. Bardales in [place] on January 19 Advised to get appointment with his colorectal surgeon DVT Ppx: holding eliquis in setting of acute bleeding Code status: FULL PCP: Constance Dispo: Admitted to PCU. Plan to return home once medically stable. Admission and Anticipated Discharge Date Admission Date: January 16, 2021 Subjective 01/17/2021 The patient was seen and examined in telemetry unit He continues to have hematuria but has a lot of improvement He denies any symptoms of abdominal pain or dysuria No nausea and or vomiting, no fever no chills Review of Systems Review of Systems: All systems reviewed and are unremarkable except as noted below Genitourinary: + hematuria; no dysuria Physical Exam Physical Exam: Lying in bed comfortably Constitutional: well developed and well nourished; not ill appearing Eyes: PERRL, conjunctivae normal, anicteric sclerae ENMT: external ear and nose normal, oropharynx normal Neck: trachea midline, no thyromegaly Respiratory: no respiratory distress Auscultation: lungs clear to auscultation bilaterally Cardiovascular: Rate/Rhythm: regular rate and regular rhythm; not tachycardic Heart Sounds: normal S1 and normal S2; no murmur Extremities: + edema (More on the left leg than the right) Gastrointestinal (Abdomen): Inspection/Auscultation: + abdomen distended (Mildly distended, colostomy bag is in situ, ventral hernia) Musculoskeletal: No acute arthritis in any joint Neurologic: Alert, awake and oriented x3 Results & Data Results & Data ([facility]) Vital Signs (Past 12 Hours) Vital Signs Temp Pulse Pulse Resp BP Pulse Ox 01/17/21 15:14 36.8 C 97 H 18 106/67 98 01/17/21 11:22 36.6 C 94 H 18 119/73 99 01/17/21 07:54 91 H 01/17/21 07:33 36.4 C L 95 H 18 142/79 H 100 Laboratory Results Short CBC 01/16/21 01/17/21 Range/Units 21:41 06:13 WBC 7.23 (4.8-10.8) K/uL Hgb 7.3 L 8.1 L (14.0-18.0) g/dL Hct 23.4 L 25.6 L (42-52) % Plt Count 340 (130-400) K/uL BMP 01/17/21 06:13 Sodium 138 Potassium 3.6 Chloride 108 H Carbon Dioxide 29 BUN 19 H Creatinine 1.12 Glucose 98 Calcium 7.7 L Medications Administered Current Inpatient Medications Acetaminophen (Acetaminophen 325 Mg Tab) 650 mg PO Q4H PRN PRN Reason: Pain or Fever Stop: 02/15/21 17:53 Ascorbic Acid (Ascorbic Acid 500 Mg Tab) 1,000 mg PO QAM [facility] Stop: 02/16/21 08:59 Last Admin: 01/17/21 07:59 Dose: 1,000 mg Documented by: Lactobacillus Acidoph/Casei/Rhamnos (Advanced Probiotic 1250 Mg Capsule) 2 cap PO QAM [facility] Stop: 02/16/21 08:59 Last Admin: 01/17/21 07:59 Dose: 2 cap Documented by: Magnesium Oxide (Magnesium Oxide 400 Mg Tab) 400 mg PO BID [facility] Stop: 02/15/21 20:59 Last Admin: 01/17/21 07:59 Dose: 400 mg Documented by: Multivitamins/Minerals (Calcium 600mg + Vit D 400 Iu Tab) 1 tab PO DAILY [facility] Stop: 02/16/21 08:59 Last Admin: 01/17/21 07:59 Dose: 1 tab Documented by: Ondansetron HCl (Ondansetron Inj 2 Mg/Ml 2 Ml Vial) 4 mg IV Q6H PRN PRN Reason: Nausea Stop: 02/15/21 17:53 Pantoprazole Sodium (Pantoprazole 40 Mg Tab) 40 mg PO QAM [facility] Stop: 02/16/21 08:59 Last Admin: 01/17/21 07:59 Dose: 40 mg Documented by: Petrolatum (Butt Paste (Zinc Oxide 16%) 171 Appln/57 Gm Jar) 1 appln EXT DAILY PRN PRN Reason: excoriation Stop: 02/15/21 18:44 Polyethylene Glycol (Polyethylene (Miralax) 17 Gm Pack) 17 gm PO DAILY PRN PRN Reason: Constipation Stop: 02/15/21 17:53
[2021-01-18 06:00] LABS: Basophils # (auto) 0.03 K/uL (0-0.2); Basophils % (auto) 0.4 %; Eosinophils # (auto) 0.09 K/uL (0-0.5); Eosinophils % (auto) 1.3 %; Hematocrit (blood only) 26.1 % (42-52); Hemoglobin 8.1 g/dL (14.0-18.0); Immature Granulocytes # (auto) 0.02 K/uL (0.00-0.02); Immature Granulocytes % (auto) 0.3 %; Lymphocytes # (auto) 1.04 K/uL (1.2-3.4); Lymphocytes % (auto) 14.6 %; Mean Corpuscular Hemoglobin 27.9 pg (25-34); Mean Platelet Volume 9.2 fL (7.4-10.4); Monocytes # (auto) 1.03 K/uL (0.11-0.59); Monocytes % (auto) 14.4 %; Neutrophils # (auto) 4.93 K/uL (1.4-6.5); Platelet Count 321 K/uL (130-400); RDW Standard Deviation 62.7 fL (36.4-46.3); White Blood Count 7.14 K/uL (4.8-10.8)
[2021-01-18 06:25] LABS: BUN Creatinine Ratio 15.9 (10-20); Calcium 7.7 mg/dl (8.5-10.1); Creatinine Clr Calc Pharmacy 75.7 ml/min; Est GFR (African American) 76.5 ml/min; Potassium 3.5 mmol/L (3.5-5.1)
[2021-01-18] MEDS: ASCORBIC ACID 500 MG TAB PO SCH (08:15)
[2021-01-18] MEDS: MAGNESIUM OXIDE 400 MG TAB PO SCH (08:15)
[2021-01-18] MEDS: PANTOprazole 40 MG TAB PO SCH (08:15)
[2021-01-18] MEDS: ADVANCED PROBIOTIC 1250 MG CAPSULE PO SCH (08:16)
[2021-01-18] MEDS: CALCIUM 600MG + VIT D 400 IU TAB PO SCH (08:16)
--- NOTE | 2021-01-18 08:20 | Urology Progress Note ---
Date of Service January 18, 2021 Assessment & Plan (1) Hematuria: Plan: 70 year-old male patient admitted with gross hematuria and anemia. 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 -He clinically is feeling well. -Remains afebrile. -Labs reviewed - white count normal, hemoglobin stable from prior at 8.1. -Given his stability, recommend continuing observation and avoidance of intervention unless he develops acute changes such as retention. -Bladder stones could theoretically be treated but suspect that it is the direct invasion into the bladder and not the stones as cause of hematuria. -He does have an outpatient appointment with Dr. Bardales, [facility], scheduled tomorrow in which he plans to keep pending discharge. -He will continue to follow with Dr. Layne with oncology. -Will also ensure he has follow-up outpatient with urology service for continued care. -Plan to continue to monitor progress while inpatient, please contact us with any acute changes. Admission and Anticipated Discharge Date Admission Date: January 16, 2021 Subjective Patient examined at bedside - alert and awake. Reports he feels well this AM. Denies dizziness/lightheadedness. Denies dysuria. States his urine is pink in color, denies clots. Feels he is emptying his bladder well. Does report some urinary frequency, denies urgency. Denies fevers or chills. Denies nausea or vomiting. Chart review: Afebrile. Wbc 7.14 Hgb 8.1 (previously 8.1) - did receive 2 units PRBC on admission. Creatinine 1.11 Urine culture with pin-point growth, re-incubating. Demoes additional urologic concerns today. Review of Systems Constitutional: as per Subjective / HPI; no fever and no chills Gastrointestinal: as per Subjective / HPI; no nausea and no vomiting Genitourinary: + as per Subjective / HPI Physical Exam Constitutional: well developed and well nourished; no acute distress and not ill appearing Respiratory: normal respiratory effort and able to speak in complete sentences; no respiratory distress and no audible wheezes Gastrointestinal (Abdomen): Inspection/Auscultation: abdomen normal to inspection; abdomen not distended Percussion/Palpation: abdomen soft; abdomen nontender and no guarding Psychiatric: Orientation: alert, oriented x 3 and cooperative Affect: euthymic affect Genitourinary: no CVA tenderness Results & Data ([facility]) Vital Signs (Past 12 Hours) Vital Signs Temp Pulse Pulse Resp BP Pulse Ox 01/18/21 07:50 36.6 C 99 H 24 129/78 98 01/18/21 04:20 36.7 C 88 124/61 92 01/18/21 01:48 98 H 01/17/21 23:36 36.9 C 100 H 22 111/70 97 PG Care Time/CCT Total # of Minutes Spent Total Time Spent with Patient: Total time spent is greater than 50% in coordination of care (as documented) at patient's floor/unit and/or counseling patient: Coding Level of Care Code 10287 Subseq Hosp Care Lvl 2 Diagnoses Hematuria R31.9
--- NOTE | 2021-01-18 10:37 | Hospitalist Progress Note ---
Date of Service January 18, 2021 Assessment & Plan (1) Hematuria: Plan: This is a 70yo M with a PMH of metastatic colon cancer (s/p stenting x 2 in 2017 & 2018 followed by diverting ileostomy [place] [address] Bardales), history of PE on Eliquis and other medical problems listed below who presents with gross hematuria since yesterday. H/H 5.1/16.5 Acute blood loss anemia in setting of metastatic Colon CA invading bladder causing gross hematuria Hold Eliquis for now Status post 2 units of PRBC Received 40mg IV Lasix after 2nd unit Globin 8.1 as of 01/17/2021 General surgery evaluated patient - no acute abdominal findings, will follow patient, low threshold to transfer to [facility] if needed Case discussed with urology - no need for additional evaluation at this point unless he develops retention of colon Appreciate urology input and recommendation Hematuria has improved a lot and the hemoglobin remains stable He has been feeling much better and denies any symptoms He will be discharged home this afternoon (2) Pulmonary embolism: Plan: Has completed 3 months of treatment for PE. Hold Eliquis for now in setting of acute bleeding Will plan to resume treatment once gross hematuria subsides, H/H improves Eliquis is on hold Was advised to keep appointment with the colorectal surgeon tomorrow, also keep holding Eliquis since then and get recommendation about restarting it. (3) Colon cancer metastasized to multiple sites: Plan: H/o metastatic colon cancer (s/p stenting x 2 in 2017 & 2018 followed by diverting ileostomy [place] [address] Bardales) Following with Dr. Layne of heme/onc, chemo regimen recently changed to Lonsurf (Trifluridine-tipiracil) but has not been able to start yet Has follow up appointment with Dr. Bardales in [place] on January 19 Advised to get appointment with his colorectal surgeon He has an appointment with oncologist during next couple of weeks DVT Ppx: holding eliquis in setting of acute bleeding Code status: FULL PCP: Constance Dispo: Admitted to PCU. Plan to return home once medically stable. Admission and Anticipated Discharge Date Admission Date: January 16, 2021 Subjective 01/17/2021 The patient was seen and examined in telemetry unit He continues to have hematuria but has a lot of improvement He denies any symptoms of abdominal pain or dysuria No nausea and or vomiting, no fever no chills 01/18/2021 The patient was seen and examined in telemetry unit He has been feeling much better and the hematuria has decreased Denies any symptoms He will be discharged home this afternoon Review of Systems Review of Systems: All systems reviewed and are unremarkable except as noted below Genitourinary: + hematuria; no dysuria Physical Exam Physical Exam: Lying in bed comfortably Constitutional: well developed and well nourished; not ill appearing Eyes: PERRL, conjunctivae normal, anicteric sclerae ENMT: external ear and nose normal, oropharynx normal Neck: trachea midline, no thyromegaly Respiratory: no respiratory distress Auscultation: lungs clear to auscultation bilaterally Cardiovascular: Rate/Rhythm: regular rate and regular rhythm; not tachycardic Heart Sounds: normal S1 and normal S2; no murmur Extremities: + edema (More on the left leg than the right) Gastrointestinal (Abdomen): Inspection/Auscultation: + abdomen distended (Mildly distended, colostomy bag is in situ, ventral hernia) Musculoskeletal: No acute arthritis in any joint Skin: no rashes, warm and dry Neurologic: PERRL, EOMI, accommodation nl, no face palsy, no dysarthria Lymphatic: no cervical or axillary lymphadenopathy Results & Data Results & Data ([facility]) Vital Signs (Past 12 Hours) Vital Signs Temp Pulse Pulse Resp BP Pulse Ox 01/18/21 07:50 36.6 C 99 H 24 129/78 98 01/18/21 07:00 99 H 01/18/21 04:20 36.7 C 88 124/61 92 01/18/21 01:48 98 H 01/17/21 23:36 36.9 C 100 H 22 111/70 97 Laboratory Results Short CBC 01/18/21 Range/Units 05:35 WBC 7.14 (4.8-10.8) K/uL Hgb 8.1 L (14.0-18.0) g/dL Hct 26.1 L (42-52) % Plt Count 321 (130-400) K/uL BMP 01/18/21 05:35 Sodium 140 Potassium 3.5 Chloride 109 H Carbon Dioxide 27 BUN 18 Creatinine 1.11 Glucose 111 H Calcium 7.7 L Medications Administered Current Inpatient Medications Acetaminophen (Acetaminophen 325 Mg Tab) 650 mg PO Q4H PRN PRN Reason: Pain or Fever Stop: 02/15/21 17:53 Ascorbic Acid (Ascorbic Acid 500 Mg Tab) [facility] [place]: 02/16/21 08:59 Last Admin: 01/18/21 08:15 Dose: 1,000 mg Documented by: Heparin Sodium (Beef Lung) (Heparin 10 Unit/Ml 5 Ml Flush) 5 ml FLUSH PRN PRN PRN Reason: Flush Stop: 02/17/21 08:01 Lactobacillus Acidoph/Casei/Rhamnos (Advanced Probiotic 1250 Mg Capsule) 2 cap PO [facility] Stop: 02/16/21 08:59 Last Admin: 01/18/21 08:16 Dose: 2 cap Documented by: Magnesium Oxide (Magnesium Oxide 400 Mg Tab) 400 mg PO BID [facility] Stop: 02/15/21 20:59 Last Admin: 01/18/21 08:15 Dose: 400 mg Documented by: Multivitamins/Minerals (Calcium 600mg + Vit D 400 Iu Tab) 1 tab PO DAILY [facility] Stop: 02/16/21 08:59 Last Admin: 01/18/21 08:16 Dose: 1 tab Documented by: Ondansetron HCl (Ondansetron Inj 2 Mg/Ml 2 Ml Vial) 4 mg IV Q6H PRN PRN Reason: Nausea Stop: 02/15/21 17:53 Pantoprazole Sodium (Pantoprazole 40 Mg Tab) 40 mg PO [facility] Stop: 02/16/21 08:59 Last Admin: 01/18/21 08:15 Dose: 40 mg Documented by: Petrolatum (Butt Paste (Zinc Oxide 16%) 171 Appln/57 Gm Jar) 1 appln EXT DAILY PRN PRN Reason: excoriation Stop: 02/15/21 18:44 Polyethylene Glycol (Polyethylene (Miralax) 17 Gm Pack) 17 gm PO DAILY PRN PRN Reason: Constipation Stop: 02/15/21 17:53
--- NOTE | 2021-01-18 10:48 | Surgery Progress Note ---
Date of Service January 18, 2021 Assessment & Plan (1) Hematuria: Plan: -Hgb improved -Continue to hold Eliquis -If continues to tolerate diet without abdominal pain and Hgb stable, ok to discharge home Admission and Anticipated Discharge Date Admission Date: January 16, 2021 Subjective Pt seen and examined. Doing well. No abdominal pain. Ostomy working well. No N/V. Afebrile. Review of Systems Constitutional: no fever and no chills Physical Exam Constitutional: WD/WN, vitals as above Gastrointestinal (Abdomen): Inspection/Auscultation: abdomen normal to inspection; abdomen not distended Percussion/Palpation: abdomen soft; abdomen nontender and no guarding +Ostomy output Results & Data ([facility]) Vital Signs (Past 12 Hours) Vital Signs Temp Pulse Pulse Resp BP Pulse Ox 01/18/21 07:50 36.6 C 99 H 24 129/78 98 01/18/21 07:00 99 H 01/18/21 04:20 36.7 C 88 124/61 92 01/18/21 01:48 98 H 01/17/21 23:36 36.9 C 100 H 22 111/70 97 PG Care Time/CCT Total # of Minutes Spent Total Time Spent with Patient: Total time spent is greater than 50% in coordi nation of care (as documented) at patient's floor/unit and/or counseling patient: Coding Level of Care Code 81388 Subseq Hosp Care Lvl 1 Diagnoses Hematuria R31.9
--- NOTE | 2021-01-19 07:13 | Discharge Summary ---
Date of Service January 19, 2021 Admission HPI Per Admitting Provider This is a 70yo M with a PMH of metastatic colon cancer (s/p stenting x 2 in 2017 & 2018 followed by diverting ile[place] [address] Bardales), history of PE on Eliquis and other medical problems listed below who presents with gross hematuria since yesterday. Endorses some light pink color in urine last month that resolved. After golfing 18 holes yesterday, patient returned home and had multiple episodes of gross hematuria. Denies any bright red blood or black output in ostomy bag. Denies any lightheadedness, visual changes, chest pain, palpitations or shortness of breath. Is due for follow-up with Dr. Bardales his colorectal surgeon in [place] this Friday. Denies any fever or chills. No nausea, vomiting, abdominal pain, dysuria or change to output in colostomy bag. Recently had chemo regimen changed by Dr. Layne to Lonsurf (Trifluridine- tipiracil) but has not been able to start yet. Admission Exam Per Admitting Provider Physical Exam: General Appearance: WD/WN, vitals as above, NAD, sitting up in bed, pleasant, conversing easily Head: normocephalic, atraumatic Eyes: normal inspection, PERRL, conjunctivae normal, anicteric sclerae ENT: external ear and nose normal, oropharynx normal Neck: normal visual inspection, trachea midline, no thyromegaly Respiratory: normal respiratory effort, lungs clear to auscultation, no wheeze, rales, rhonchi. No accessory muscle use Cardiovascular: regular rate, rhythm, no murmur, normal peripheral pulses, no BLE edema. Vessels: no JVD Chest: normal inspection of chest Abdomen/GI: normal bowel sounds, soft, nontender, + ostomy with no output, hernia RLQ, no hepatosplenomegaly Extremities/Musculoskeletal: no cyanosis or clubbing, extremities motor strength 5/5. 2+ pitting edema LLE Neurologic: PERRL, EOMI, accommodation nl, no face palsy, no dysarthria, CN's II-XI intact bilaterally and moves all extremities Psychiatric: A+Ox3, euthymic affect Skin: no rashes, normal color, warm/dry Principal Diagnosis Gross hematuria in setting of metastatic colon cancer invading bladder wall, history of pulmonary embolism on Eliquis Discharge Exam Constitutional well developed and well nourished; not ill appearing Eyes PERRL, conjunctivae normal, anicteric sclerae ENMT external ear and nose normal, oropharynx normal Neck trachea midline, no thyromegaly Respiratory no respiratory distress Auscultation: lungs clear to auscultation bilaterally Cardiovascular Rate/Rhythm: regular rate and regular rhythm; not tachycardic Heart Sounds: normal S1 and normal S2; no murmur Extremities: + edema (More on the left leg than the right) Gastrointestinal (Abdomen) Inspection/Auscultation: + abdomen distended (Mildly distended, colostomy bag is in situ, ventral hernia) Skin no rashes, warm and dry Neurologic PERRL, EOMI, accommodation nl, no face palsy, no dysarthria Lymphatic no cervical or axillary lymphadenopathy Discharge Data Allergies Allergy/AdvReac Type Severity Reaction Status Date / Time No Known Allergies Allergy Unverified 01/16/21 10:26 Consultations 01/16/21 12:37 ED Decision to Admit Stat 01/16/21 17:54 Consult General Surgery Routine Consult Urology Routine Ordered Studies 01/16/21 11:20 CT abd pelvis IV con only Stat Hospital Course (1) Hematuria: This is a 70yo M with a PMH of metastatic colon cancer (s/p stenting x 2 in 2017 & 2018 followed by diverting ile[place] [address] Bardales), history of PE on Eliquis and other medical problems listed below who presents with gross hematuria since yesterday. H/H 5.1/16.5 Acute blood loss anemia in setting of metastatic Colon CA invading bladder stephani ng gross hematuria Hold Eliquis for now Status post 2 units of PRBC Received 40mg IV Lasix after 2nd unit Globin 8.1 as of 01/17/2021 General surgery evaluated patient - no acute abdominal findings, will follow patient, low threshold to transfer to [facility] if needed Case discussed with urology - no need for additional evaluation at this point unless he develops retention of colon Appreciate urology input and recommendation Hematuria has improved a lot and the hemoglobin remains stable He has been feeling much better and denies any symptoms He will be discharged home this afternoon (2) Pulmonary embolism: Has completed 3 months of treatment for PE. Hold Eliquis for now in setting of acute bleeding Will plan to resume treatment once gross hematuria subsides, H/H improves Eliquis is on hold Was advised to keep appointment with the colorectal surgeon tomorrow, also keep holding Eliquis since then and get recommendation about restarting it. (3) Colon cancer metastasized to multiple sites: H/o metastatic colon cancer (s/p stenting x 2 in 2017 & 2018 followed by diverting ileostomy [place] [address] Bardales) Following with Dr. Layne of heme/onc, chemo regimen recently changed to Lonsurf (Trifluridine-tipiracil) but has not been able to start yet Has follow up appointment with Dr. Bardales in [place] on Friday, January 19 Advised to get appointment with his colorectal surgeon He has an appointment with oncologist during next couple of weeks DVT Ppx: holding eliquis in setting of acute bleeding Code status: FULL PCP: Constance Dispo: Admitted to PCU. Plan to return home once medically stable. Total Time Total Time Spent Total Time Spent (In Minutes): 35 minutes Discharge Plan Discharge Items Patient Disposition: Home - Self-Care Reason For Visit: HEMATURIA Discharge Diagnosis: Gross hematuria in setting of metastatic colon cancer invading bladder wall, history of pulmonary embolism on Eliquis Condition on Discharge: Fair Activity: Resume your previous activity Non-emergency contact: Primary Care Provider Call non-emergency contact if: you have any medication questions and your symptoms worsen Follow-up/Referrals: Collin Juarez MD [Primary Care Provider] - 01/25/21 2:00 pm (Please make an appointment with your primary care physician within 7 days.) Yoshi Bardales, D.O. [Outside Practitioners] - (Date & Time 01/19/2021 10:00 AM Provider Yoshi Bardales, Department General Surgery [facility] ) Diet: Regular Addtl Attending Provider Instructions: Please take precautions to avoid fall Keep your appointment with colorectal surgery tomorrow Your Eliquis will be on hold until further recommendation to start it by your colorectal surgeon or your switchboard operator helper/oncologist Pending Studies at Discharge: No Stand-Alone Forms: My [employer], Smoking Cessation Medications and DC Order Prescriptions: Continued omeprazole magnesium [Prilosec OTC] 20 mg Tablet,Delayed Release (Dr/Ec) 20 mg PO QAM RF: 0 Probiotic 3 billion cell Capsule 3,000 mmu cells PO QAM RF: 0 ascorbic acid (vitamin C) 1,000 mg Tablet 1 g PO QAM RF: 0 ondansetron HCl 8 mg tablet 8 mg PO UD PRN (Reason: Nausea And Vomiting) RF: 0 nystatin-triamcinolone 100,000-0.1 unit/g-% cream 1 applic TOPICAL UD PRN (Reason: Rash) RF: 0 zinc oxide Cream 2 applic TOPICAL UD RF: 0 Rk-Ndma-Ovpcblp 133 mg Tablet 133 mg PO BID RF: 0 Eliquis 5 mg tablet 5 mg PO BID RF: 0 Super Adair Plus 1 tab PO DAILY RF: 0 Discharge Orders: Discharge Order (Routine); Ordered 01/18/21 Ordered By: Benji Wong/Other Patient Handouts: What is Hematuria? Admission Data Admit Date/Time: 01/16/21 15:37 Attending Provider: Benji Encarnacion Admit Provider: Benji Encarnacion Primary Care Provider: Collin Juarez Other Providers: Benji Encarnacion ; Sg Arana ; Mynor Guzman Other Interventions: Discharge Summary Assessment (RN) Last Done: 01/18/21 10:53
== END 2021-01-18 12:29 | disposition home or self-care (01) | DRG 687 ==
LOC: ED 09:30 → 2S 15:37 → 2E 16:51
DX: C18.9 Malignant neoplasm of colon, unspecified; F17.290 Nicotine dependence, other tobacco product, uncomplicated; C79.9 Secondary malignant neoplasm of unspecified site; Z79.01 Long term (current) use of anticoagulants; Z86.711 Personal history of pulmonary embolism; Z92.21 Personal history of antineoplastic chemotherapy; Z93.2 Ileostomy status; R31.0 Gross hematuria; C79.11 Secondary malignant neoplasm of bladder; N21.0 Calculus in bladder; Z79.899 Other long term (current) drug therapy; D62 Acute posthemorrhagic anemia; N13.30 Unspecified hydronephrosis; C19 Malignant neoplasm of rectosigmoid junction; Z20.822 Contact with and (suspected) exposure to COVID-19

== ENCOUNTER 2021-01-30 14:06 | Inpatient (IN) ==
--- NOTE | 2021-01-30 16:02 | Emergency Department Note ---
Impression & Plan Colon cancer metastasized to multiple sites, Acute deep vein thrombosis (DVT) of left lower extremity ED Provider Note NAME: JUAN ROSARIO AGE: 70 SEX: M : 1950 ARRIVES VIA: Walk-In INFORMANT: Patient, ED PROVIDER(S): Darius Lainez MD Chief Complaint: Abnormal venous ultrasound HPI: Patient does present due to concern for acute DVT seen in left lower extremity. Patient did have bilateral ultrasounds completed earlier today. The patient has noticed the swelling since his most recent discharge. Patient does have a known history of PE on Eliquis but did have a recent admission due to concern for gross hematuria but did require transfusion of 2 units PRBCs. Patient does have a history of metastatic colon CA and does follow with Dr. Bardales at [facility]. The patient does have a history of colonic stents as well as diverting ileostomy. Patient has had the Eliquis held until follow-up. Patient had followed with his outpatient colorectal surgeon as well as urologist as the patient has had left lower extremity swelling since January 17. There still has been no plan to restart his Eliquis at this time patient denies any fevers or chills. Patient denies any chest pains. The patient does have shortness of breath with exertion but this is unchanged from prior. ROS: See HPI for pertinent positives and negatives. A total of 10 systems were reviewed and otherwise negative. Past medical history: See below Surgical history: See below Social history: See below Physical Exam: GENERAL: Wearing glasses, wearing a mask, non-toxic. EYE EXAM: Normal conjunctiva. PERRL, no anisocoria and EOM's grossly intact w/o pain. NECK: Supple, no nuchal rigidity, no adenopathy, non-tender. No signs of meningismus. LUNGS: Clear to auscultation. Normal chest wall mechanics. HEART: Tachycardic and regular, no MRG. ABDOMEN: Abdomen soft, midline incisional scar well-healed, right-sided of the midline reducible hernia, left-sided ileostomy noted. No masses, no rebound or guarding. BACK: No CVA TTP. SKIN: No rashes and no bruising. UPPER EXTREMITIES: Upper extremities are grossly normal. LOWER EXTREMITIES: Grossly normal, left greater than right lower extremity edema with no pain, compartments are soft. NEURO EXAM: A&O x3, cranial nerves II-XII grossly intact, normal speech, moves all 4 extremities on command w/o issue. Differential diagnoses: DVT, musculoskeletal, infection, joint effusion, trauma, lymphedema, idiopathic, CHF, as well as other pathologies. Course: Patient was seen and evaluated the bedside. Full history physical exam was performed. EKG interpreted by me Sinus tachycardia, rate 105, normal intervals, normal axis, no ST changes or T WI. No significant change from comparison EKG completed January 16, 2021. Imaging Studies: Outpatient imaging shows negative right lower extremity ultrasound but concern for DVT of the left femoral vein. Cardiac monitoring: An order was placed for continuous cardiac monitoring. The monitor shows a rate of 98 with sinus rhythm. MDM: Patient was seen due to concern for abnormal ultrasound. Patient did have blood work completed. Patient has normal white count with a hemoglobin of 9. This has been chronic and stable and certainly much improved from his prior hemoglobin of 5. Platelet count is unremarkable. No kidney dysfunction. Hypocalcemia is noted. I did speak the on-call urologist Dr. Esqueda who stated the patient may be started on heparin provided he does not have any current hematuria which the patient has declined. The patient was ordered the heparin. Dr. Esqueda did state that if he has a recurrence the heparin would likely need to be stopped. I did speak with the on-call hospitalist Dr. Thomason and the patient was admitted to the medicine service. Critical Care: I have personally spent 42 minutes of critical care time in direct management of this patient. This includes bedside care, interpretation of diagnostic studies, and testing, discussion with consultants, patient, and family members, and other require inpatient management activities. This 42 minutes is in excess of all separately billable procedures. Past Med/Surg History Medical History Colon cancer Colon cancer metastasized to multiple sites Hydronephrosis Large bowel obstruction Pulmonary embolism Surgical History H/O colectomy H/O exploratory laparotomy H/O hernia repair Family History Father Prostate cancer Social History Smoking Status: Current some day smoker Tobacco Type: Cigars Hx Alcohol Use: Yes (3-4 drinks daily ) Alcohol type: beer, wine and hard liquor Hx Substance Use: No Preferred Language: Tajik Communication Ability: Effective Enroller Required: No Beliefs That Will Affect Care: None marital status: Current Living Situation: Spouse Current Living Situation Comment: Lives with current occupational status: retired Feels Safe at Home: Yes Assistive Devices: None Allergies Allergies Allergy/AdvReac Type Severity Reaction Status Date / Time No Known Allergies Allergy Unverified 01/30/21 16:48 Home Meds Home Medications Medication Instructions Recorded Confirmed lactobacillus combination no.4 3 3,000 mmu cells PO QAM 10/19/18 01/30/21 billion cell capsule (Probiotic) omeprazole magnesium 20 mg 20 mg PO QAM 10/19/18 01/30/21 tablet,delayed release (Prilosec OTC) apixaban 5 mg tablet (Eliquis) 5 mg PO BID 01/16/21 01/30/21 ascorbic acid (vitamin C) 1,000 mg 1 g PO QAM 01/16/21 01/30/21 tablet nystatin-triamcinolone 100,000 1 applic TOPICAL UD PRN 01/16/21 01/30/21 unit/g-0.1 % topical cream ondansetron HCl 8 mg tablet 8 mg PO UD PRN 01/16/21 01/30/21 zinc oxide 2 applic TOPICAL UD 01/16/21 01/30/21 trifluridine 20 mg-tipiracil 8.19 4 tab PO BID 01/30/21 01/30/21 mg tablet (Lonsurf) Results & Data (ED) Vital Signs Vital Signs - 24 hr 01/30/21 14:34 01/30/21 16:11 01/30/21 17:30 Temperature 36.3 C L Temperature Source Oral Pulse Rate 109 H 102 H 98 H Pulse Rate from SpO2 Sensor 100 H Pulse Rhythm Regular Respiratory Rate 18 18 29 H Blood Pressure 121/77 134/86 Blood Pressure Mean 91 102 Blood Pressure Position Sitting Pulse Oximetry 98 97 99 Oxygen Delivery Method Room Air Room Air Sepsis Recent Fever Within 48 Hours No Sepsis New/Unexplained Change in Mental Status No Sepsis Action Taken by Nursing No Action Required 01/30/21 18:00 01/30/21 18:30 01/30/21 19:00 Temperature Temperature Source Pulse Rate 101 H 100 H 99 H Pulse Rate from SpO2 Sensor 101 H 100 H 97 H Pulse Rhythm Respiratory Rate 25 H 22 18 Blood Pressure 142/95 H 127/81 121/80 Blood Pressure Mean 110 96 93 Blood Pressure Position Pulse Oximetry 97 98 98 Oxygen Delivery Method Sepsis Recent Fever Within 48 Hours Sepsis New/Unexplained Change in Mental Status Sepsis Action Taken by Nursing 01/30/21 19:30 01/30/21 20:01 01/30/21 20:33 Temperature Temperature Source Pulse Rate 102 H 99 H 112 H Pulse Rate from SpO2 Sensor 100 H 100 H Pulse Rhythm Respiratory Rate 25 H 22 13 Blood Pressure 123/81 129/76 Blood Pressure Mean 95 93 Blood Pressure Position Pulse Oximetry 98 99 Oxygen Delivery Method Sepsis Recent Fever Within 48 Hours Sepsis New/Unexplained Change in Mental Status Sepsis Action Taken by Nursing 01/30/21 21:00 01/30/21 21:30 Temperature Temperature Source Pulse Rate 100 H 97 H Pulse Rate from SpO2 Sensor 101 H 98 H Pulse Rhythm Respiratory Rate 21 25 H Blood Pressure 135/76 117/76 Blood Pressure Mean 95 89 Blood Pressure Position Pulse Oximetry 99 98 Oxygen Delivery Method Sepsis Recent Fever Within 48 Hours Sepsis New/Unexplained Change in Mental Status Sepsis Action Taken by Fpc Medications Current Medication List: was personally reviewed by me Laboratory Data Attestation: I reviewed the patient's lab results. Result diagrams: 01/30/21 17:29 01/30/21 17:29 Lab Results 01/30/21 01/30/21 01/30/21 Range/Units 16:47 16:47 17:29 WBC 8.42 (4.8-10.8) K/uL RBC 3.22 L (4.7-6.1) M/uL Hgb 9.0 L (14.0-18.0) g/dL Hct 29.4 L (42-52) % MCV 91.3 (80-100) fL MCH 28.0 (25-34) pg MCHC 30.6 L (32-36) g/dL RDW Std Deviation 62.2 H (36.4-46.3) fL RDW Coeff of Patricia 18.5 H (11.5-14.5) % Plt Count 320 (130-400) K/uL MPV 10.1 (7.4-10.4) fL Immature Gran % (Auto) 0.2 % Neut % (Auto) 77.1 % Lymph % (Auto) 11.5 % Emery % (Auto) 9.9 % Eos % (Auto) 1.1 % Baso % (Auto) 0.2 % Neut # (Auto) 6.49 (1.4-6.5) K/uL Lymph # (Auto) 0.97 L (1.2-3.4) K/uL Emery # (Auto) 0.83 H (0.11-0.59) K/uL Eos # (Auto) 0.09 (0-0.5) K/uL Baso # (Auto) 0.02 (0-0.2) K/uL Immature Gran # (Auto) 0.02 (0.00-0.02) K/uL PT (9.0-12.0) Seconds INR (0.9-1.1) Sodium (136-145) mmol/L Potassium (3.5-5.1) mmol/L Chloride (98-107) mmol/L Carbon Dioxide (21-32) mmol/L Anion Gap (3-11) BUN (7-18) mg/dl Creatinine (0.6-1.4) mg/dl Est Cr Clr Drug Dosing ml/min Est GFR ( Amer) ml/min Est GFR (Non-Af Amer) ml/min BUN/Creatinine Ratio (10-20) Glucose (70-99) mg/dl Calcium (8.5-10.1) mg/dl Magnesium (1.8-2.4) mg/dl Total Bilirubin (0.2-1) mg/dl AST (15-37) U/L ALT (12-78) U/L Alkaline Phosphatase (45-117) U/L Troponin I (0-0.045) ng/ml Total Protein (6.4-8.2) gm/dl Albumin (3.4-5.0) gm/dl Globulin (2.5-4.0) gm/dl Albumin/Globulin Ratio (0.9-2) TSH (0.300-4.500) uIu/ml COVID-19 Eval Order Covid19 at [facility] SARS-CoV-2 (PCR) NEGATIVE (Negative) 01/30/21 01/30/21 Range/Units 17:29 17:29 WBC (4.8-10.8) K/uL RBC (4.7-6.1) M/uL Hgb (14.0-18.0) g/dL Hct (42-52) % MCV (80-100) fL MCH (25-34) pg MCHC (32-36) g/dL RDW Std Deviation (36.4-46.3) fL RDW Coeff of Patricia (11.5-14.5) % Plt Count (130-400) K/uL MPV (7.4-10.4) fL Immature Gran % (Auto) % Neut % (Auto) % Lymph % (Auto) % Emery % (Auto) % Eos % (Auto) % Baso % (Auto) % Neut # (Auto) (1.4-6.5) K/uL Lymph # (Auto) (1.2-3.4) K/uL Emery # (Auto) (0.11-0.59) K/uL Eos # (Auto) (0-0.5) K/uL Baso # (Auto) (0-0.2) K/uL Immature Gran # (Auto) (0.00-0.02) K/uL PT 12.5 H (9.0-12.0) Seconds INR 1.3 H (0.9-1.1) Sodium 141 (136-145) mmol/L Potassium 4.0 (3.5-5.1) mmol/L Chloride 109 H (98-107) mmol/L Carbon Dioxide 27 (21-32) mmol/L Anion Gap 5.0 (3-11) BUN 15 (7-18) mg/dl Creatinine 1.10 (0.6-1.4) mg/dl Est Cr Clr Drug Dosing 77.4 ml/min Est GFR ( Amer) 77.3 ml/min Est GFR (Non-Af Amer) 66.7 ml/min BUN/Creatinine Ratio 13.5 (10-20) Glucose 99 (70-99) mg/dl Calcium 7.6 L (8.5-10.1) mg/dl Magnesium 1.9 (1.8-2.4) mg/dl Total Bilirubin 0.9 (0.2-1) mg/dl AST 55 H (15-37) U/L ALT 34 (12-78) U/L Alkaline Phosphatase 127 H (45-117) U/L Troponin I < 0.015 (0-0.045) ng/ml Total Protein 7.0 (6.4-8.2) gm/dl Albumin 1.8 L (3.4-5.0) gm/dl Globulin 5.2 H (2.5-4.0) gm/dl Albumin/Globulin Ratio 0.3 L (0.9-2) TSH 3.950 (0.300-4.500) uIu/ml COVID-19 Eval Order SARS-CoV-2 (PCR) (Negative) Administered Medications Heparin Sodium/Dextrose (Heparin Sodium/Dextrose) 25,000 units in 500 mls @ 20 mls/hr IV .Q24H [facility]; Protocol Stop: 03/01/21 18:44 Last Admin: 01/30/21 19:10 Dose: 1,000 units/hr, 20 mls/hr Documented by: [id number] Cosigned by: [id number] Trifluridine/Tipiracil - Non- Formulary Patient's Own Med 4 ea PO [id number]@0900,2100 [facility] Stop: 02/10/21 20:59 Last Admin: 01/30/21 22:11 Dose: 80 mg Documented by: [id number] Imaging Data Radiologist's Impression: Chest X-Ray 01/30/21 16:11 XR chest 1V portable HISTORY: weakness COMPARISON: Chest 10/19/2018. FINDINGS: No pneumothorax. No pleural effusions. The heart is normal in size. There is a left subclavian Port-A-Cath which terminates in the SVC. Improved aeration within the lung bases with a few bibasilar linear densities remaining. This favors subsegmental atelectasis or scarring. No new focal lung consolidations to suggest pneumonia. No evidence for pulmonary edema. IMPRESSION: Improved aeration within the lung bases. Otherwise, no acute process within the chest. ACT 112: Negative or not required by law. Electronically signed by: Jeffery Garsia M.D. 01/30/2021 4:34 PM Outpatient bilateral venous ultrasounds completed with concern for left lower extremity femoral DVT. Right lower extremity unremarkable. Discharge Plan Visit Data Chief Complaint: Leg Injury/Pain Stated Complaint: DVT LEFT LEG ED Provider: Darius Lainez Discharge Problem: Colon cancer metastasized to multiple sites, Acute deep vein thrombosis (DVT) of left lower extremity Patient Disposition: Admitted As Inpatient Forms Stand Alone Forms: [facility] Prescriptions Prescriptions: No Action omeprazole magnesium [Prilosec OTC] 20 mg Tablet,Delayed Release (Dr/Ec) 20 mg PO QAM RF: 0 Probiotic 3 billion cell Capsule 3,000 mmu cells PO QAM RF: 0 ascorbic acid (vitamin C) 1,000 mg Tablet 1 g PO QAM RF: 0 ondansetron HCl 8 mg tablet 8 mg PO UD PRN (Reason: Nausea And Vomiting) RF: 0 nystatin-triamcinolone 100,000-0.1 unit/g-% cream 1 applic TOPICAL UD PRN (Reason: Rash) RF: 0 zinc oxide Cream 2 applic TOPICAL UD RF: 0 Eliquis 5 mg tablet 5 mg PO BID RF: 0 Lonsurf 20-8.19 mg tablet 4 tab PO BID RF: 0 Referrals Referrals: Collin Juarez MD [Primary Care Provider] -
--- NOTE | 2021-01-30 16:35 | XRay Report ---
XR chest 1V portable HISTORY: weakness COMPARISON: Chest 10/19/2018. FINDINGS: No pneumothorax. No pleural effusions. The heart is normal in size. There is a left subclav jolynn Port-A-Cath which terminates in the SVC. Improved aeration within the lung bases with a few bibas ilar linear densities remaining. This favors subsegmental atelectasis or scarring. No new focal lung consolidations to suggest pneumonia. No evidence for pulmonary edema. IMPRESSION: Improved aeration within the lung bases. Otherwise, no acute process within the chest. ACT 112: Negative or not required by law. Electronically signed by: Jeffery Garsia M.D. 01/30/2021 4:34 PM
[2021-01-30 17:44] LABS: Basophils # (auto) 0.02 K/uL (0-0.2); Basophils % (auto) 0.2 %; Eosinophils # (auto) 0.09 K/uL (0-0.5); Eosinophils % (auto) 1.1 %; Hematocrit (blood only) 29.4 % (42-52); Immature Granulocytes # (auto) 0.02 K/uL (0.00-0.02); Immature Granulocytes % (auto) 0.2 %; Lymphocytes # (auto) 0.97 K/uL (1.2-3.4); Lymphocytes % (auto) 11.5 %; Mean Corpuscular Hgb Conc 30.6 g/dL (32-36); Mean Corpuscular Volume 91.3 fL (80-100); Mean Platelet Volume 10.1 fL (7.4-10.4); Monocytes # (auto) 0.83 K/uL (0.11-0.59); Monocytes % (auto) 9.9 %; Neutrophils # (auto) 6.49 K/uL (1.4-6.5); Neutrophils % (auto) 77.1 %; Platelet Count 320 K/uL (130-400); RDW Coefficient of Variation 18.5 % (11.5-14.5); RDW Standard Deviation 62.2 fL (36.4-46.3); Red Blood Count 3.22 M/uL (4.7-6.1); White Blood Count 8.42 K/uL (4.8-10.8)
[2021-01-30 17:54] LABS: INR 1.3 (0.9-1.1); Prothrombin Time 12.5 Seconds (9.0-12.0)
[2021-01-30 18:05] LABS: Alanine Aminotransferase 34 U/L (12-78); Albumin Level 1.8 gm/dl (3.4-5.0); Aspartate Aminotransferase 55 U/L (15-37); BUN Creatinine Ratio 13.5 (10-20); Blood Urea Nitrogen 15 mg/dl (7-18); Calcium 7.6 mg/dl (8.5-10.1); Carbon Dioxide 27 mmol/L (21-32); Chloride 109 mmol/L (98-107); Creatinine Clr Calc Pharmacy 77.4 ml/min; Est GFR (African American) 77.3 ml/min; Est GFR (Non-African American) 66.7 ml/min; Glucose 99 mg/dl (70-99); Magnesium 1.9 mg/dl (1.8-2.4); Sodium 141 mmol/L (136-145)
[2021-01-30 18:16] LABS: Albumin Globulin Ratio 0.3 (0.9-2); Alkaline Phosphatase 127 U/L (45-117); Bilirubin,Total 0.9 mg/dl (0.2-1); Globulin 5.2 gm/dl (2.5-4.0); Troponin I < 0.015 ng/ml (0-0.045)
[2021-01-30] MEDS ORDERED: Heparin IV Adult Wt-Based Low-Dose *NO* Bolus Protocol ONE (18:38)
[2021-01-30] MEDS ORDERED: ACETAMINOPHEN 325 MG TAB PO PRN (18:44)
--- NOTE | 2021-01-30 18:53 | History & Physical Report ---
Date of Service January 30, 2021 Assessment & Plan (1) Acute deep vein thrombosis (DVT) of left lower extremity: Plan: Acute LLE DVT Patient evaluated by grinding machine tender (Dr. Layne) today -pt was sent for lower extremity Doppler and found to have acute left lower extremity DVT (the common femoral) Sent to ER for further evaluation and treatment Started IV heparin without bolus Closely monitor H&H given recent hematuria Consulted vascular surgery for IVC filter Consulted radiation oncology Plan outlined by Dr. Layne, patient's grinding machine tender We will stay in contact with Dr. Layne about further management Colon (Sigmoid) cancer involving the bladder, with metastases to liver, omentum Diagnosed in October 2016 Recent hx of Hematuria secondary to above Follows with heme/onc Dr. Layne , Dr. Bardales (colorectal) and Dr. Zurita (urology) No surgical procedures planned Changed chemotherapy on 01/29 to Lonsurf on 01/29, 80 bid, per Dr. Layne Hematuria now resolved (after stopping Eliquis) in earlier in January. to closely monitor Hx of PE Pt was on Eliquis for about 3 months when he developed hematuria Was hospitalized earlier this month, discharged on 01/18, required blood transfusion Eliquis was stopped Code: DNR/DNI History of Present Illness Chief Complaint: Acute LLE DVT Primary Care Provider: Collin Juarez MD Pt is a 70 yo M with a metastatic colon cancer (s/p stenting x 2 in 2017 & 2018 followed by diverting ileostomy [place] [address] Bardales), history of PE (on Eliquis previously) who presents with acute LE DVT. Patient was admitted here in the hospital earlier this month, discharged on January 18. At that time he was evaluated for gross hematuria and required several blood transfusions. Eliquis was stopped at that time and patient was then evaluated by his surgeons soon after discharge. Per patient, there is no more surgery planned for his cancer and patient was to follow-up with grinding machine tender oncologist, Dr. Layne. He saw Dr. Layne today, and his chemo regiment, Lonsurf, was discussed (started as of 01/29). In addition patient presented with left lower extremity edema and so Dr. Layne sent him for Dopplers. It was found that he had acute DVT in left lower extremity (the common femoral) and therefore he was sent to the ED for further evaluation and treatment. Per Dr. Layne's note, it is recommended that patient is evaluated for IVC filter, and palliative radiation oncology. In addition consider IV heparin without bolus. Patient is currently lying in bed in no acute distress. He tells me that he actually feels well, and has been feeling well for past couple of days, conside ring going golfing again. He also denies any more hematuria. Denies fevers chills, chest pain shortness of breath, abdominal pain nausea or vomiting. Denies any dizziness or lightheadedness. Allergies Allergy/AdvReac Type Severity Reaction Status Date / Time No Known Allergies Allergy Unverified 01/30/21 16:48 Home Medications Medication Instructions Recorded Confirmed Type lactobacillus combination no.4 3 3,000 mmu cells PO QAM 10/19/18 01/30/21 History billion cell capsule (Probiotic) omeprazole magnesium 20 mg 20 mg PO QAM 10/19/18 01/30/21 History tablet,delayed release (Prilosec OTC) apixaban 5 mg tablet (Eliquis) 5 mg PO BID 01/16/21 01/30/21 History ascorbic acid (vitamin C) 1,000 mg 1 g PO QAM 01/16/21 01/30/21 History tablet nystatin-triamcinolone 100,000 1 applic TOPICAL UD PRN 01/16/21 01/30/21 History unit/g-0.1 % topical cream ondansetron HCl 8 mg tablet 8 mg PO UD PRN 01/16/21 01/30/21 History zinc oxide 2 applic TOPICAL UD 01/16/21 01/30/21 History trifluridine 20 mg-tipiracil 8.19 4 tab PO BID 01/30/21 01/30/21 History mg tablet (Lonsurf) Past Med/Surg History Medical History Colon cancer Colon cancer metastasized to multiple sites Hydronephrosis Large bowel obstruction Pulmonary embolism Surgical History H/O colectomy H/O exploratory laparotomy H/O hernia repair Family History Father Prostate cancer Social History Smoking Status: Current some day smoker Tobacco Type: Cigars Hx Alcohol Use: Yes (3-4 drinks daily ) Alcohol type: beer, wine and hard liquor Hx Substance Use: No Preferred Language: Romanian Communication Ability: Effective Mold Preparer Required: No Beliefs That Will Affect Care: None marital status: Current Living Situation: Spouse Current Living Situation Comment: Lives with current occupational status: retired Feels Safe at Home: Yes Assistive Devices: None Review of Systems Review of Systems: All systems reviewed & are unremarkable except as noted in HPI & below Physical Exam Constitutional: WD/WN, vitals as above Eyes: PERRL, conjunctivae normal, anicteric sclerae ENMT: external ear and nose normal, oropharynx normal Neck: trachea midline, no thyromegaly Respiratory: normal respiratory effort, lungs clear to auscultation Cardiovascular: RRR, no murmur, no edema Chest (Breasts): Chest: normal inspection of chest (has port on the left) Gastrointestinal (Abdomen): normal bowel sounds, soft, nontender, no hepatosplenomegaly (+ ostomy bag) Musculoskeletal: no cyanosis or clubbing, extremities motor strength 5/5 (+ LLE edema) Skin: no rashes, warm and dry Neurologic: PERRL, EOMI, accommodation nl, no face palsy, no dysarthria Psychiatric: A+Ox3, euthymic affect Genitourinary: no CVA tenderness Lymphatic: + LLE edema Results & Data Results & Data ([facility]) Vital Signs (Past 12 Hours) Vital Signs Temp Pulse Resp BP Pulse Ox 01/30/21 16:11 102 H 18 97 01/30/21 14:34 36.3 C L 109 H 18 121/77 98 Laboratory Results 01/30/21 01/30/21 01/30/21 Range/Units 17:29 17:29 17:29 WBC 8.42 (4.8-10.8) K/uL RBC 3.22 L (4.7-6.1) M/uL Hgb 9.0 L (14.0-18.0) g/dL Hct 29.4 L (42-52) % MCV 91.3 (80-100) fL MCH 28.0 (25-34) pg MCHC 30.6 L (32-36) g/dL RDW Std Deviation 62.2 H (36.4-46.3) fL RDW Coeff of Patricia 18.5 H (11.5-14.5) % Plt Count 320 (130-400) K/uL MPV 10.1 (7.4-10.4) fL Immature Gran % (Auto) 0.2 % Neut % (Auto) 77.1 % Lymph % (Auto) 11.5 % [place] % (Auto) 9.9 % Eos % (Auto) 1.1 % Baso % (Auto) 0.2 % Neut # (Auto) 6.49 (1.4-6.5) K/uL Lymph # (Auto) 0.97 L (1.2-3.4) K/uL [place] # (Auto) 0.83 H (0.11-0.59) K/uL Eos # (Auto) 0.09 (0-0.5) K/uL Baso # (Auto) 0.02 (0-0.2) K/uL Immature Gran # (Auto) 0.02 (0.00-0.02) K/uL PT 12.5 H (9.0-12.0) Seconds INR 1.3 H (0.9-1.1) Sodium 141 (136-145) mmol/L Potassium 4.0 (3.5-5.1) mmol/L Chloride 109 H (98-107) mmol/L Carbon Dioxide 27 (21-32) mmol/L Anion Gap 5.0 (3-11) BUN 15 (7-18) mg/dl Creatinine 1.10 (0.6-1.4) mg/dl Est Cr Clr Drug Dosing 77.4 ml/min Est GFR ( Amer) 77.3 ml/min Est GFR (Non-Af Amer) 66.7 ml/min BUN/Creatinine Ratio 13.5 (10-20) Glucose 99 (70-99) mg/dl Calcium 7.6 L (8.5-10.1) mg/dl Magnesium 1.9 (1.8-2.4) mg/dl Total Bilirubin 0.9 (0.2-1) mg/dl AST 55 H (15-37) U/L ALT 34 (12-78) U/L Alkaline Phosphatase 127 H (45-117) U/L Troponin I < 0.015 (0-0.045) ng/ml Total Protein 7.0 (6.4-8.2) gm/dl Albumin 1.8 L (3.4-5.0) gm/dl Globulin 5.2 H (2.5-4.0) gm/dl Albumin/Globulin Ratio 0.3 L (0.9-2) TSH 3.950 (0.300-4.500) uIu/ml COVID-19 Eval Order SARS-CoV-2 (PCR) (Negative) 01/30/21 01/30/21 Range/Units 16:47 16:47 WBC (4.8-10.8) K/uL RBC (4.7-6.1) M/uL Hgb (14.0-18.0) g/dL Hct (42-52) % MCV (80-100) fL MCH (25-34) pg MCHC (32-36) g/dL RDW Std Deviation (36.4-46.3) fL RDW Coeff of Patricia (11.5-14.5) % Plt Count (130-400) K/uL MPV (7.4-10.4) fL Immature Gran % (Auto) % Neut % (Auto) % Lymph % (Auto) % [place] % (Auto) % Eos % (Auto) % Baso % (Auto) % Neut # (Auto) (1.4-6.5) K/uL Lymph # (Auto) (1.2-3.4) K/uL [place] # (Auto) (0.11-0.59) K/uL Eos # (Auto) (0-0.5) K/uL Baso # (Auto) (0-0.2) K/uL Immature Gran # (Auto) (0.00-0.02) K/uL PT (9.0-12.0) Seconds INR (0.9-1.1) Sodium (136-145) mmol/L Potassium (3.5-5.1) mmol/L Chloride (98-107) mmol/L Carbon Dioxide (21-32) mmol/L Anion Gap (3-11) BUN (7-18) mg/dl Creatinine (0.6-1.4) mg/dl Est Cr Clr Drug Dosing ml/min Est GFR ( Amer) ml/min Est GFR (Non-Af Amer) ml/min BUN/Creatinine Ratio (10-20) Glucose (70-99) mg/dl Calcium (8.5-10.1) mg/dl Magnesium (1.8-2.4) mg/dl Total Bilirubin (0.2-1) mg/dl AST (15-37) U/L ALT (12-78) U/L Alkaline Phosphatase (45-117) U/L Troponin I (0-0.045) ng/ml Total Protein (6.4-8.2) gm/dl Albumin (3.4-5.0) gm/dl Globulin (2.5-4.0) gm/dl Albumin/Globulin Ratio (0.9-2) TSH (0.300-4.500) uIu/ml COVID-19 Eval Order Covid19 at [facility] SARS-CoV-2 (PCR) NEGATIVE (Negative) Code Status & VTE Plan VTE Prophylaxis Plan VTE Prophylaxis will be ordered: Yes
[2021-01-30] MEDS: HEPARIN SODIUM/DEXTROSE 25,000 UNITS/500 ML BAG IV SCH (19:10)
[2021-01-30] MEDS: TRIFLURIDINE PO SCH (22:11)
[2021-01-30] MEDS: [UNRECOGNIZED DRUG - OTHER] PO SCH (22:11)
[2021-01-30] MEDS ORDERED: [UNRECOGNIZED DRUG - OTHER] PO SCH (23:20)
[2021-01-30 23:58] LABS: Partial Thromboplastin Ratio 1.1; Partial Thromboplastin Time 28.9 Seconds (21.0-31.0)
[2021-01-31] MEDS ORDERED: HEPARIN SOD (PORCINE) 1000 UNIT/ML IV ONE (01:35)
[2021-01-31 06:19] LABS: Hematocrit (blood only) 27.9 % (42-52); Hemoglobin 8.6 g/dL (14.0-18.0); Mean Corpuscular Hemoglobin 28.3 pg (25-34); Mean Corpuscular Hgb Conc 30.8 g/dL (32-36); Mean Corpuscular Volume 91.8 fL (80-100); Mean Platelet Volume 9.3 fL (7.4-10.4); Platelet Count 296 K/uL (130-400); RDW Coefficient of Variation 18.4 % (11.5-14.5); RDW Standard Deviation 61.8 fL (36.4-46.3); Red Blood Count 3.04 M/uL (4.7-6.1); White Blood Count 6.56 K/uL (4.8-10.8)
[2021-01-31 07:05] LABS: BUN Creatinine Ratio 13.8 (10-20); Calcium 7.6 mg/dl (8.5-10.1); Creatinine Clr Calc Pharmacy 81.9 ml/min; Est GFR (African American) 82.7 ml/min; Est GFR (Non-African American) 71.4 ml/min; Potassium 3.8 mmol/L (3.5-5.1)
--- NOTE | 2021-01-31 08:08 | Radiation OncologyConsultation ---
Date of Consultation January 31, 2021 Assessment & Plan (1) Colon cancer metastasized to multiple sites: Assessment: Mr. Carter with metastatic colorectal cancer diagnosed in 2017. The patient has been on multiple lines of systemic therapy and most recently has been treated with Lonsurf underneath the supervision of Dr. Paulie Layne. Patient was seen in the outpatient medical oncology clinic by Dr. Layne yesterday and was found to have DVT in the left common femoral vein and was sent to the hospital for further work-up and evaluation as well as consideration for inpatient radiation oncology consultation. The patient has been on Eliquis in the past for pulmonary embolus which is also exacerbating his issues with bleeding. In the outpatient setting, the patient has had some hematuria due to his colorectal cancer involving his bladder. It is for this reason that Dr. Layne from medical oncology has requested radiation oncology consultation for consideration of palliative external beam radiation therapy to prevent further bleeding. Currently, the patient is not complaining of any hematuria. I am now seeing the patient in consultation to discuss the role of radiation therapy. Recommendation: Palliative external beam radiation therapy to colorectal mass invading bladder. Plan for 10 to 15 fractions. Plan: 1. Patient lives in [place]. He will decide where he would like treatment which is reasonable since he is asymptomatic. Patient told to call us or let primary team know that he would like to move forward with radiation therapy here. Otherwise, referral can be place for [facility]. 2. Vascular surgery consultation for IVF filter. 3. Continue follow-up with medical oncology in the outpatient setting. 4. Patient and family encouraged to call us with any further questions or concerns. Rationale/Explanation of Treatment: I did explain the indications, alternatives, benefits, risks and side effects of external beam radiation therapy. I did explain the most common side effects including, but not limited to, skin erythema, skin breakdown, hyperpigmentation, telangiectasia, wound complications, perianal fistula development, fistula formation, nausea, vomi ting, bowel obstruction, bowel perforation, dysuria, increased urinary frequency, urgency, diarrhea, constipation, melena, hematochezia, hematuria, radiation cystitis, radiation proctitis, fatigue, decreased blood counts, wound complications from surgery, rectal incontinence, secondary malignancy development. I did explain the procedures and daily process of radiation therapy. The patient understands and would be willing to consent to treatment. The patient had multiple questions which were answered to his full satisfaction. Thank you for allowing us to participate in the care of this patient. This chart was completed in part utilizing [employer] Speech Voice Recognition software. Attempts were made to minimize the grammatical errors, random word insertions, pronoun errors and incomplete sentences. Any formal questions or concerns about the content, text or information contained within the body of this dictation should be directly addressed to the provider for clarification. Eliana Layne MD Department of Radiation Oncology [facility] History of Present Illness Attending Physician: Tor Thomason MD History of Present Illness 10/2016. Patient diagnosed with metastatic colorectal cancer. 10/2016 to 04/08/2017. Modified FOLFOX x 12 cycles. Underneath supervision of Dr. Paulie Layne. 05/2017 to 12/2018. Maintenance Xeloda. Underneath supervision of Dr. Paulie Layne. 09/23/2018. Exploratory laparotomy small bowel resection confirming recurrent invasive adenocarcinoma. 12/2018 to 12/2020. Irinotecan and Vectibix. Underneath supervision of Dr. Paulie Layne. 12/26/2020. CT of chest/abdomen/pelvis. IMPRESSION: CHEST: 1. Unchanged pulmonary arterial embolic burden. 2. Worsening pulmonary and pleural metastasis. 3. Worsened posterior mediastinal/paraesophageal implant. ABDOMEN/PELVIS: 1. New air foci eccentric to the colonic stent with increased surrounding soft tissue thickening contiguous with the anterior pelvis which may be infectious or neoplastic in etiology, or a combination. 2. Unchanged colonic mass with stent. 3. New hepatic lesions, metastatic. 4. Peritoneal metastasis, most of which are unchanged with a couple that are worse. 5. Unchanged moderate to severe left-sided hydroureteronephrosis due to neoplastic infiltration of the distal ureter at site of colonic mass. 01/2021. Patient started on Lonsurf. Underneath supervision of Dr. Paulie Layne. 01/2021. Patient has been on/off Eliquis due to hematuria from bleeding. 01/16/2021. CT of abdomen/pelvis. IMPRESSION: 1. There is a large infiltrative mass surrounding the sigmoid stent as described above. This extends into the left bladder dome. There is associated hyperdense material within the bladder which likely represents blood products. An irregular filling defect within the left bladder lumen as described above may represent tension of tumor. 2. Extensive metastatic disease within the chest, abdomen, and pelvis as described above with associated peritoneal carcinomatosis and a small amount of ascites. 3. A 2.3 cm lesion within the right hepatic lobe also likely representing metastatic disease. 4. 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 5. Small focus of extraluminal gas extending to the sigmoid stent. This is consistent with microperforation/ulceration of the surrounding tumor. 6. Additional findings as described above. 01/30/2021. Medical oncology follow-up with Dr. Paulie Layne. Patient complains of bilateral lower extremity swelling. Dr. Layne will order stat bilateral lower extremity Dopplers to rule out DVT. If positive, Dr. Layne is referring patient to hospital for further work-up and evaluation and consideration of inpatient radiation oncology consultation due to hematuria from colon cancer involving bladder. 01/30/2021. Bilateral lower extremity duplex. Impression: CONCLUSIONS: Right lower extremity with no evidence of acute deep venous thrombosis. Suspected acute deep venous thrombosis in the left common femoral vein. The thrombus is n on-occlusive. 01/30/2021. Patient admitted to [facility] for work-up and evaluation including DVT and colon cancer with involvement of bladder. Vascular surgery consultation placed for IVC filter. Radiation oncology consultation also placed. Allergies Allergy/AdvReac Type Severity Reaction Status Date / Time No Known Allergies Allergy Unverified 01/30/21 16:48 Home Medications Medication Instructions Recorded Confirmed Type lactobacillus combination no.4 3 3,000 mmu cells PO QAM 10/19/18 01/30/21 History billion cell capsule (Probiotic) omeprazole magnesium 20 mg 20 mg PO QAM 10/19/18 01/30/21 History tablet,delayed release (Prilosec OTC) apixaban 5 mg tablet (Eliquis) 5 mg PO BID 01/16/21 01/30/21 History ascorbic acid (vitamin C) 1,000 mg 1 g PO QAM 01/16/21 01/30/21 History tablet nystatin-triamcinolone 100,000 1 applic TOPICAL UD PRN 01/16/21 01/30/21 History unit/g-0.1 % topical cream ondansetron HCl 8 mg tablet 8 mg PO UD PRN 01/16/21 01/30/21 History zinc oxide 2 applic TOPICAL UD 01/16/21 01/30/21 History trifluridine 20 mg-tipiracil 8.19 4 tab PO BID 01/30/21 01/30/21 History mg tablet (Lonsurf) Patient History Medical History Colon cancer Colon cancer metastasized to multiple sites Hydronephrosis Large bowel obstruction Pulmonary embolism Surgical History H/O colectomy H/O exploratory laparotomy H/O hernia repair Family History Father Prostate cancer Social History Smoking Status: Current some day smoker Tobacco Type: Cigars Hx Alcohol Use: Yes (3-4 drinks daily ) Alcohol type: beer, wine and hard liquor Hx Substance Use: No Preferred Language: Georgian Communication Ability: Effective Shear Grinder Operator Required: No Beliefs That Will Affect Care: None marital status: Current Living Situation: Spouse Current Living Situation Comment: Lives with current occupational status: retired Feels Safe at Home: Yes Assistive Devices: None Review of Systems Review of Systems: All systems reviewed & are unremarkable except as noted in HPI & below Patient denies hematuria. Physical Exam Constitutional: WD/WN, vitals as above Psychiatric: A+Ox3, euthymic affect
[2021-01-31 08:10] LABS: Partial Thromboplastin Ratio 2.4
[2021-01-31 08:30] LABS: Partial Thromboplastin Time 64.4 Seconds (21.0-31.0)
[2021-01-31] MEDS: PANTOprazole 40 MG TAB PO SCH (10:08)
[2021-01-31] MEDS: [UNRECOGNIZED DRUG - OTHER] PO SCH ×2 (10:09→20:02)
[2021-01-31] MEDS: TRIFLURIDINE PO SCH ×2 (10:09→20:02)
--- NOTE | 2021-01-31 14:10 | Consultation ---
Date of Consultation January 31, 2021 Assessment & Plan (1) Acute deep vein thrombosis (DVT) of left lower extremity: Pt with recent hx of discontinuation of AC d/t significant hematuria requiring transfusion, and colon mass eroded into bladder. LLE DVT noted on US and consistent with sx. Pt high risk for further hematuria. Recommend IVC filter insertion in OR tomorrow by Dr Doyle. Pt and family agreeable. Affected thrombotic vein of extremity: femoral Qualified Code(s): I82.412 - Acute embolism and thrombosis of left femoral vein History of Present Illness Reason for Consultation: DVT, hematuria Attending Physician: Yony Benites MD History of Present Illness 70 yo m with hx of metastatic colon ca s/p colon resection with ostomy and colonic stent, DVT/PE admitted with acute LLE DVT, seen in consultation today for same. Pt states he was dx with DVT/PE about 5 months ago and was on eliquis since that time until about 2 weeks ago when he developed severe hematuria requiring hospitalization and transfusion and his AC was stopped. States he developed severe edema of LLE a few days ago. US ordered outpt demonstrated acute L common fem v DVT and IVC filter insertion was recommended d/t inability to take AC. Pt admits edema of LLE. Denies RIVERA, fever, chest pain, SOB, abd pain, N/V, rest pain, claudication, other complaints. Allergies Allergy/AdvReac Type Severity Reaction Status Date / Time No Known Allergies Allergy Unverified 01/30/21 16:48 Home Medications Medication Instructions Recorded Confirmed Type lactobacillus combination no.4 3 3,000 mmu cells PO QAM 10/19/18 01/30/21 History billion cell capsule (Probiotic) omeprazole magnesium 20 mg 20 mg PO QAM 10/19/18 01/30/21 History tablet,delayed release (Prilosec OTC) apixaban 5 mg tablet (Eliquis) 5 mg PO BID 01/16/21 01/30/21 History ascorbic acid (vitamin C) 1,000 mg 1 g PO QAM 01/16/21 01/30/21 History tablet nystatin-triamcinolone 100,000 1 applic TOPICAL UD PRN 01/16/21 01/30/21 History unit/g-0.1 % topical cream ondansetron HCl 8 mg tablet 8 mg PO UD PRN 01/16/21 01/30/21 History zinc oxide 2 applic TOPICAL UD 01/16/21 01/30/21 History trifluridine 20 mg-tipiracil 8.19 4 tab PO BID 01/30/21 01/30/21 History mg tablet (Lonsurf) Patient History Medical History Colon cancer Colon cancer metastasized to multiple sites Hydronephrosis Large bowel obstruction Pulmonary embolism Surgical History H/O colectomy H/O exploratory laparotomy H/O hernia repair Family History Father Prostate cancer Social History Smoking Status: Current some day smoker Tobacco Type: Cigars Hx Alcohol Use: Yes Alcohol type: beer Hx Substance Use: No Preferred Language: Setswana Communication Ability: Effective Medical Doctor Md/Medical Director Required: No Beliefs That Will Affect Care: None marital status: Current Living Situation: Spouse Current Living Situation Comment: Lives with current occupational status: retired Feels Safe at Home: Yes Assistive Devices: None Review of Systems Review of Systems: 14 systems reviewed and negative other than HPI Physical Exam Constitutional: WD/WN, vitals as above + obese, cooperative and comfortable; not in distress ENMT: Ears: no hearing impairment Neck: trachea midline Respiratory: normal respiratory effort Auscultation: lungs clear to auscultation bilaterally and + diminished lung sounds Cardiovascular: Rate/Rhythm: regular rate and regular rhythm Vessels: femoral pulses present, posterior tibial pulses present, dorsalis pedis pulses present and radial pulses present; + abnormal peripheral pulses Extremities: normal capillary refill and + edema (+4 edema LLE) Gastrointestinal (Abdomen): Inspection/Auscultation: + abdomen distended and + abdominal surgical scar (ostomy present) Percussion/Palpation: abdomen nontender Musculoskeletal: no cyanosis or clubbing, extremities motor strength 5/5 Skin: no rashes, warm and dry Neurologic: moves all extremities and awake; no focal motor deficits and not c onfused Psychiatric: A+Ox3, euthymic affect Results & Data ([facility]) Vital Signs (Past 12 Hours) Vital Signs Pulse Pulse Resp BP BP Pulse Ox Pulse Ox 01/31/21 13:08 102 H 26 H 116/71 98 01/31/21 12:30 102 H 25 H 112/73 96 01/31/21 12:00 102 H 34 H 115/70 99 01/31/21 11:46 106 H 21 121/68 97 01/31/21 11:24 98/73 L 01/31/21 10:10 102 H 20 125/82 98 98 01/31/21 09:30 100 H 20 01/31/21 09:00 98 H 24 01/31/21 08:52 102 H 14 01/31/21 08:00 94 H 19 119/80 98 01/31/21 07:30 92 H 17 99 01/31/21 07:08 106 H 21 01/31/21 06:30 91 H 23 137/76 98 01/31/21 06:00 94 H 24 108/79 100 01/31/21 05:30 94 H 25 H 130/80 98 01/31/21 05:00 93 H 31 H 130/76 98 01/31/21 04:30 92 H 25 H 142/80 H 98 01/31/21 04:01 97 H 20 135/86 99 01/31/21 03:30 97 H 28 H 107/68 97 01/31/21 03:00 97 H 33 H 117/69 97
[2021-01-31] MEDS: HEPARIN SODIUM/DEXTROSE 25,000 UNITS/500 ML BAG IV SCH (17:29)
--- NOTE | 2021-01-31 18:31 | Hospitalist Progress Note ---
Date of Service January 31, 2021 Assessment & Plan (1) Acute deep vein thrombosis (DVT) of left lower extremity: Plan: Acute LLE DVT Pt was sent to the ER by Hematology/Oncology Dr. Layne Pt said that he was on Eliquis that stopped recently due to hematuria Pt was sent for lower extremity Doppler and found to have acute left lower extremity DVT (the common femoral) In the ER he was starting on IV heparin without bolus Vascular surgery was consulted for IVC filter placement Continue monitor H&H given recent hematuria Consulted vascular surgery for IVC filter Plan for IVC filter in am by Dr. Doyle Will make NPO after midnight Continue monitor H/H Hx of PE Pt was on Eliquis for about 3 months when he developed hematuria Was hospitalized earlier this month, discharged on 01/18, required blood transfusion Eliquis was stopped On IV heparin currently Colon (Sigmoid) cancer involving the bladder, with metastases to liver, omentum Diagnosed in October 2016 Recent hx of Hematuria secondary to above Follows with heme/onc Dr. Layne , Dr. Bardales (colorectal) and Dr. Zurita (urology) No surgical procedures planned Changed chemotherapy on 01/29 to Lonsurf on 01/29, 80 bid, per Dr. Layne Radiation Oncology on board. Recommended Palliative external beam radiation therapy to colorectal mass invading bladder. Plan for 10 to 15 fractions. since pt lives in [place], he will decide if he wants to follow with [place] [facility] or [facility] Code: DNR/DNI Admission and Anticipated Discharge Date Admission Date: January 30, 2021 Subjective Pt was seen and examined for follow up of DVT Lying in bed with no distress Pt said that he feels ok He denies any hematuria or bloody stool He is schedule to have an IVC filter place by Dr. Doyle in am Denies any chest pain, palpitation, dizziness and SOB Physical Exam Physical Exam: General- No acute distress Head- atraumatic Eyes- PERRL, EOMI, ENT- oropharynx clear Neck- supple, no JVD Lungs- clear to auscultation Heart- regular rhythm; no murmur Abdomen- normal bowel sounds, soft, nontender,+ostomy bag, +abdominal hernia Extremities- no calf tenderness, +LLE edema Neuro- alert, oriented x 3; PERRL, EOMI; no facial palsy; no dysarthria Skin- warm & dry Results & Data Results & Data ([facility]) Vital Signs (Past 12 Hours) Vital Signs Temp Pulse Pulse Resp BP BP Pulse Ox 01/31/21 15:37 36.8 C 01/31/21 15:34 107 H 01/31/21 14:12 36.8 C 107 H 16 98 01/31/21 13:30 115/76 01/31/21 13:08 102 H 26 H 116/71 98 01/31/21 12:30 102 H 25 H 112/73 96 01/31/21 12:00 102 H 34 H 115/70 99 01/31/21 11:46 106 H 21 121/68 97 01/31/21 11:24 98/73 L 01/31/21 10:10 102 H 20 125/82 98 01/31/21 09:30 100 H 20 01/31/21 09:00 98 H 24 01/31/21 08:52 102 H 14 01/31/21 08:00 94 H 19 119/80 98 01/31/21 07:30 92 H 17 99 01/31/21 07:08 106 H 21 Pulse Ox 01/31/21 15:37 01/31/21 15:34 01/31/21 14:12 01/31/21 13:30 01/31/21 13:08 01/31/21 12:30 01/31/21 12:00 01/31/21 11:46 01/31/21 11:24 01/31/21 10:10 98 01/31/21 09:30 01/31/21 09:00 01/31/21 08:52 01/31/21 08:00 01/31/21 07:30 01/31/21 07:08 (1) Acute deep vein thrombosis (DVT) of left lower extremity Affected thrombotic vein of extremity: femoral Qualified Code(s): I82.412 - Acute embolism and thrombosis of left femoral vein
[2021-02-01 05:16] LABS: Partial Thromboplastin Ratio 2.1
[2021-02-01] MEDS ORDERED: ceFAZolin 2000MG 2,000 MG/15 ML SYR IV SCH (06:00)
[2021-02-01 06:08] LABS: Partial Thromboplastin Time 54.4 Seconds (21.0-31.0)
[2021-02-01] MEDS: PANTOprazole 40 MG TAB PO SCH (08:17)
[2021-02-01] MEDS: TRIFLURIDINE PO SCH ×2 (08:17→21:52)
[2021-02-01] MEDS: [UNRECOGNIZED DRUG - OTHER] PO SCH ×2 (08:17→21:52)
[2021-02-01 09:25] LABS: Hematocrit (blood only) 27.9 % (42-52); Hemoglobin 8.6 g/dL (14.0-18.0); Mean Corpuscular Hemoglobin 28.1 pg (25-34); Mean Corpuscular Hgb Conc 30.8 g/dL (32-36); Mean Corpuscular Volume 91.2 fL (80-100); Mean Platelet Volume 9.6 fL (7.4-10.4); Platelet Count 316 K/uL (130-400); RDW Coefficient of Variation 18.7 % (11.5-14.5); RDW Standard Deviation 62.1 fL (36.4-46.3); Red Blood Count 3.06 M/uL (4.7-6.1); White Blood Count 6.01 K/uL (4.8-10.8)
[2021-02-01] MEDS ORDERED: ceFAZolin 1000MG 1,000 MG/7.5 ML SYR IV ONE (12:00)
[2021-02-01] MEDS ORDERED: SODIUM CHLORIDE 0.9% 1000ML 1,000 ML IV SCH (13:00)
--- NOTE | 2021-02-01 13:03 | History & Physical Bridge Note ---
Date of Service February 01, 2021 History & Physical Bridge Note Patient for insertion of vena cava filter today. I have discussed the risks options and benefits of the procedure with the patient. The patient understands the risks options and benefits and agrees to the procedure. I have examined the patient, reviewed the History & Physical and in the interval since the performance of the History & Physical I have noted the following changes of clinical significance: no changes noted
[2021-02-01] MEDS ORDERED: LIDOCAINE 1% LOCAL 20 ML VIAL ONE (14:14)
[2021-02-01] MEDS: HEPARIN SODIUM/DEXTROSE 25,000 UNITS/500 ML BAG IV SCH (14:22)
--- NOTE | 2021-02-01 14:33 | Pre Anesthesia Assessment ---
Date of Service February 01, 2021 Pre Sedation Assessment Vital Signs Temp Pulse Pulse Resp BP BP Pulse Ox 02/01/21 12:37 36.6 C 96 H 20 134/80 100 02/01/21 12:00 36.4 C L 95 H 14 134/80 100 02/01/21 08:05 91 H 14 128/82 98 02/01/21 05:05 36.9 C 96 H 25 H 122/77 99 02/01/21 00:35 36.9 C 102 H 24 119/76 01/31/21 20:09 107 H 01/31/21 15:37 36.8 C 01/31/21 15:34 107 H Cardiovascular RRR, no murmur, no edema Respiratory normal respiratory effort, lungs clear to auscultation Pre-Sedation Airway Assessment Smoking Status: Current some day smoker Hx Sleep Apnea: No Short, Thick Neck: No Thyromental Distance: > or= 3.5 Finger Breadths Oral Cavity: + Dentures Mallampati Class: I ASA: ASA3 NPO Status Date of Last Intake of Fluids: 01/31/21 Time of Last Intake of Fluids: 21:00 Date of Last Intake of Solid Food: 01/31/21 Time of Last Intake of Solid Foods: 21:00 Procedure Planning Contraindications for Sedation: none Current Medications Reviewed: Yes Notes The planned sedation has been discussed with the patient. Informed Consent was obtained. I have identified the patient, determined the appropriateness of sedation and have assessed the patient immediately prior to the procedure. All medicine(s) and interventions are by my order.
[2021-02-01] MEDS ORDERED: MIDAZOLAM HCL 1 MG/ML 2ML VIAL ONE (14:42)
[2021-02-01] MEDS ORDERED: fentaNYL citrate 100 MCG/2 ML VIAL ONE (14:42)
[2021-02-01] MEDS ORDERED: VISIPAQUE IV PRN (15:03)
--- NOTE | 2021-02-01 15:07 | Post Operative Brief Note ---
Immediate Post Op Note v1 Date of Surgery February 01, 2021 Pre & Post Diagnosis Operation Date: 02/01/21 14:15 Pre-Op Diagnosis: Left Lower Extremity Deep Vein Thrombosis, Contraindication to Anticoagulation Post-Op Diagnosis: Left Lower Extremity Deep Vein Thrombosis, Contraindication to Anticoagulation I identified the patient and participated in the time-out.: Yes Procedure Operation Date: 02/01/21 14:15 Actual Procedures p Inferior Vena Cava Filter Placement Right Femoral Approach, Ultrasound Locali zation of Right Femoral Vein, Fluoroscopy for Positioning, Moderate Sedation [id number](Right) - Brayden Doyle MD Surgeon Brayden Doyle MD Instrument Technician Helper MD Sherri Estimated Blood Loss 0 Findings Consistent with Post-Op Diagnosis Anesthesia Type RN Sedation Complications none Disposition Accompanied Patient To Recovery: No Disposition: Recovery Room
--- NOTE | 2021-02-01 15:07 | Procedure Note ---
Angiogram Post Procedure Fluoroscopy Time (minutes): 1.2 Radiation (mGy): 107 Contrast: 20cc Post Operative Report Pre & Post Diagnosis Operation Date: 02/01/21 14:15 Pre-Op Diagnosis: Left Lower Extremity Deep Vein Thrombosis, Contraindication to Anticoagulation Post-Op Diagnosis: Left Lower Extremity Deep Vein Thrombosis, Contraindication to Anticoagulation I identified the patient and participated in the time-out.: Yes Procedure Operation Date: 02/01/21 14:15 Actual Procedures p Inferior Vena Cava Filter Placement Right Femoral Approach, Ultrasound Localization of Right Femoral Vein, Fluoroscopy for Positioning, Moderate Sedation [id number](Right) - Brayden Doyle MD Surgeon Brayden Doyle MD Suture Winder Hand Shelia Mckinley MD Estimated Blood Loss 0 Findings Consistent with Post-Op Diagnosis Specimens None Anesthesia Type RN Sedation Complications None immediate Disposition Accompanied Patient To Recovery: No Indications This is a 70 year old male with left femoral deep vein thrombosis with contraindication to anticoagulation. He presents for inferior vena cava filter insertion. Description of Procedure The patient was taken to the operating suite. The patient's identity and surgical procedure were verified. The patient was transferred over to the operating room table and placed in the supine position. The right groin was prepped and draped in the usual sterile fashion. A team timeout was performed including confirmation of the patient's identity, surgical site, and surgical procedure. The right femoral vein was located with ultrasound. It was patent, compressed easily, and had no filling defects. Local anesthetic was injected into the skin and subcutaneous tissue over the intended puncture site. The vein was then punctured under ultrasound visualization. A guidewire was then passed centrally into the inferior vena cava under fluoroscopic guidance. The puncture site was then dilated and the Cook Celect inferior vena cava filter sheath inserted. It was passed to the infra renal vena cava. A venacavagram was done which showed no cava clot and an acceptable size. The renal veins were identified. The filter was then passed through the sheath and deployed in the infra renal vena cava in an upright position. Satisfied with the positioning of the filter, the sheath was removed. Pressure was applied to the puncture site. Adequate hemostasis was obtained and a sterile dressing was applied. The patient left the angio suite in good condition and tolerated the procedure well. Dr. Doyle was present and scrubbed for the entirety of the procedure. I attest to the content of the Intraoperative Record and any orders documented therein. Any exceptions are noted below.
--- NOTE | 2021-02-01 17:00 | Hospitalist Progress Note ---
Date of Service February 01, 2021 Assessment & Plan (1) Acute deep vein thrombosis (DVT) of left lower extremity: Plan: Acute LLE DVT Pt was sent to the ER by Hematology/Oncology Dr. Layne Pt said that he was on Eliquis that stopped recently due to hematuria Pt was sent for lower extremity Doppler and found to have acute left lower extremity DVT (the common femoral) In the ER he was starting on IV heparin without bolus Vascular surgery was consulted for IVC filter placement Continue monitor H&H given recent hematuria Consulted vascular surgery for IVC filter Plan for IVC filter today Dr. Doyle Currently NPO for the procedure Continue monitor H/H Hx of PE Pt was on Eliquis for about 3 months when he developed hematuria Was hospitalized earlier this month, discharged on 01/18, required blood transfusion Eliquis was stopped On IV heparin currently Colon (Sigmoid) cancer involving the bladder, with metastases to liver, omentum Diagnosed in October 2016 Recent hx of Hematuria secondary to above Follows with heme/onc Dr. Layne , Dr. Bardales (colorectal) and Dr. Zurita (urology) No surgical procedures planned Changed chemotherapy on 01/29 to Lonsurf on 01/29, 80 bid, per Dr. Layne Radiation Oncology on board. Recommended Palliative external beam radiation therapy to colorectal mass invading bladder. Plan for 10 to 15 fractions. since pt lives in [place], he will decide if he wants to follow with [place] radiation oncology or [facility] Code: DNR/DNI Admission and Anticipated Discharge Date Admission Date: January 30, 2021 Subjective Pt was seen and examined for follow up of DVT Lying in bed with no distress Pt said that he feels ok He denies any hematuria or bloody stool He is schedule to have an IVC filter place by Dr. Doyle this afternoon Denies any chest pain, palpitation, dizziness and SOB Physical Exam Physical Exam: General- No acute distress Head- atraumatic Eyes- PERRL, EOMI, ENT- oropharynx clear Neck- supple, no JVD Lungs- clear to auscultation Heart- regular rhythm; no murmur Abdomen- normal bowel sounds, soft, nontender,+ostomy bag, +abdominal hernia Extremities- no calf tenderness, +LLE edema Neuro- alert, oriented x 3; PERRL, EOMI; no facial palsy; no dysarthria Skin- warm & dry Results & Data Results & Data ([facility]) Vital Signs (Past 12 Hours) Vital Signs Temp Pulse Pulse Resp BP BP Pulse Ox 02/01/21 15:18 100 H 30 H 127/74 99 02/01/21 15:10 101 H 16 125/70 100 02/01/21 15:05 101 H 16 123/77 100 02/01/21 15:00 101 H 16 125/79 100 02/01/21 14:55 105 H 16 123/80 100 02/01/21 14:50 105 H 18 143/87 H 100 02/01/21 12:37 36.6 C 96 H 20 134/80 100 02/01/21 12:01 96 H 24 134/80 02/01/21 12:00 36.4 C L 95 H 14 134/80 100 02/01/21 08:05 91 H 14 128/82 98 02/01/21 05:05 36.9 C 96 H 25 H 122/77 99 (1) Acute deep vein thrombosis (DVT) of left lower extremity Affected thrombotic vein of extremity: femoral Qualified Code(s): I82.412 - Acute embolism and thrombosis of left femoral vein
[2021-02-02 05:09] LABS: Hematocrit (blood only) 25.2 % (42-52); Hemoglobin 7.9 g/dL (14.0-18.0); Mean Corpuscular Hemoglobin 28.2 pg (25-34); Mean Corpuscular Hgb Conc 31.3 g/dL (32-36); Mean Platelet Volume 9.7 fL (7.4-10.4); Platelet Count 284 K/uL (130-400); RDW Coefficient of Variation 18.5 % (11.5-14.5); RDW Standard Deviation 60.7 fL (36.4-46.3); White Blood Count 5.19 K/uL (4.8-10.8)
[2021-02-02 06:34] LABS: Partial Thromboplastin Time 51.7 Seconds (21.0-31.0)
[2021-02-02] MEDS: [UNRECOGNIZED DRUG - OTHER] PO SCH (08:02)
[2021-02-02] MEDS: HEPARIN SODIUM/DEXTROSE 25,000 UNITS/500 ML BAG IV SCH (08:02)
[2021-02-02] MEDS: PANTOprazole 40 MG TAB PO SCH (08:02)
[2021-02-02] MEDS: TRIFLURIDINE PO SCH (08:02)
--- NOTE | 2021-02-02 08:45 | Hospitalist Progress Note ---
Date of Service February 02, 2021 Assessment & Plan (1) Acute deep vein thrombosis (DVT) of left lower extremity: Plan: Acute LLE DVT Mostly due to Metastatic colorectal CA causing hypercoagulable state and DVT Pt was sent to the ER by Hematology/Oncology Dr. Layne Pt said that he was on Eliquis that stopped recently due to hematuria Pt was sent for lower extremity Doppler and found to have acute left lower extremity DVT (the common femoral) In the ER he was starting on IV heparin without bolus Vascular surgery was consulted for IVC filter placement Continue monitor H&H given recent hematuria Status post IVC filter placed by Dr. Doyle Case discussed with oncology recommended to transition to Eliquis 2.5 mg twice daily then he will reassess the patient outpatient if Eliquis needs to increase to 5 mg twice daily Check BMP within a week to monitor hemoglobin Hx of PE Pt was on Eliquis for about 3 months when he developed hematuria Was hospitalized earlier this month, discharged on 01/18, required blood brandon sfusion Eliquis was stopped On IV heparin currently, transition to Eliquis 2.5 twice daily Status post IVC filter placed Colon (Sigmoid) cancer involving the bladder, with metastases to liver, omentum Diagnosed in October 2016 Recent hx of Hematuria secondary to above Follows with heme/onc Dr. Layne , Dr. Bardales (colorectal) and Dr. Zurita (urology) No surgical procedures planned Changed chemotherapy on 01/29 to Lonsurf on 01/29, 80 bid, per Dr. Layne Radiation Oncology on board. Recommended Palliative external beam radiation therapy to colorectal mass invading bladder. Plan for 10 to 15 fractions. since pt lives in [place], he will decide if he wants to follow with [place] radiation oncology or [facility] Code: DNR/DNI Disposition We will discharge home today Admission and Anticipated Discharge Date Admission Date: January 30, 2021 Subjective Pt was seen and examined for follow up of DVT Lying in bed with no distress Status post IVC filter placed yesterday by Dr. Doyle Pt said that he feels ok He denies any hematuria or bloody stool Denies any chest pain, palpitation, dizziness and SOB Physical Exam Physical Exam: General- No acute distress Head- atraumatic Eyes- PERRL, EOMI, ENT- oropharynx clear Neck- supple, no JVD Lungs- clear to auscultation Heart- regular rhythm; no murmur Abdomen- normal bowel sounds, soft, nontender,+ostomy bag, +abdominal hernia Extremities- no calf tenderness, +LLE edema Neuro- alert, oriented x 3; PERRL, EOMI; no facial palsy; no dysarthria Skin- warm & dry Results & Data Results & Data ([facility]) Vital Signs (Past 12 Hours) Vital Signs Temp Pulse Resp BP Pulse Ox 02/02/21 04:00 37 C 95 H 20 126/77 95 (1) Acute deep vein thrombosis (DVT) of left lower extremity Affected thrombotic vein of extremity: femoral Qualified Code(s): I82.412 - Acute embolism and thrombosis of left femoral vein
[2021-02-02 09:29] VITALS: PULSE 98; O2SAT 99
[2021-02-02 09:30] VITALS: TEMP 98.2
[2021-02-02 12:40] VITALS: BP 135/79
[2021-02-02] MEDS ORDERED: APIXABAN 2.5 MG TAB PO SCH (13:00)
--- NOTE | 2021-02-02 15:43 | Electrocardiogram Report ---
Test Reason : Blood Pressure : / mmHG Vent. Rate : 105 BPM Atrial Rate : 105 BPM P-R Int : 126 ms QRS Dur : 084 ms QT Int : 354 ms P-R-T Axes : 025 069 043 degrees QTc Int : 467 ms Sinus tachycardia Otherwise normal ECG When compared with ECG of 16-JAN-2021 12:04, No significant change was found Confirmed by Mynor Angel ([id number]) on 02/02/2021 3:42:54 PM Referred By: Paulie Layne Confirmed By:Mynor Angel
[2021-02-02] MEDS ORDERED: HEPARIN 100 UNIT/ML 5ML FLUSH ONE (16:59)
[2021-02-02] MEDS ORDERED: HEPARIN 100 UNIT/ML 5ML FLUSH FLUSH STA (18:05)
--- NOTE | 2021-02-12 10:27 | Discharge Summary ---
Date of Service February 02, 2021 Admission HPI Per Admitting Provider Pt is a 70 yo M with a metastatic colon cancer (s/p stenting x 2 in 2017 & 2018 followed by diverting ileostomy [place] [address] Bardales), history of PE (on Eliquis previously) who presents with acute LE DVT. Patient was admitted here in the hospital earlier this month, discharged on January 18. At that time he was evaluated for gross hematuria and required several blood transfusions. Eliquis was stopped at that time and patient was then evaluated by his surgeons soon after discharge. Per patient, there is no more surgery planned for his cancer and patient was to follow-up with energy efficiency finance manager oncologist, Dr. Layne. He saw Dr. Layne today, and his chemo regiment, Lonsurf, was discussed (started as of 01/29). In addition patient presented with left lower extremity edema and so Dr. Layne sent him for Dopplers. It was found that he had acute DVT in left lower extremity (the common femoral) and therefore he was sent to the ED for further evaluation and treatment. Per Dr. Layne's note, it is recommended that patient is evaluated for IVC filter, and palliative radiation oncology. In addition consider IV heparin without bolus. Patient is currently lying in bed in no acute distress. He tells me that he act ually feels well, and has been feeling well for past couple of days, considering going golfing again. He also denies any more hematuria. Denies fevers chills, chest pain shortness of breath, abdominal pain nausea or vomiting. Denies any dizziness or lightheadedness. Admission Exam Per Admitting Provider Constitutional: WD/WN, vitals as above Eyes: PERRL, conjunctivae normal, anicteric sclerae ENMT: external ear and nose normal, oropharynx normal Neck: trachea midline, no thyromegaly Respiratory: normal respiratory effort, lungs clear to auscultation Cardiovascular: RRR, no murmur, no edema Chest (Breasts): Chest: normal inspection of chest (has port on the left) Gastrointestinal: normal bowel sounds, soft, nontender, no hepatosplenomegaly (+ ostomy bag) Musculoskeletal: no cyanosis or clubbing, extremities motor strength 5/5 (+ LLE edema) Skin: no rashes, warm and dry Neurologic: PERRL, EOMI, accommodation nl, no face palsy, no dysarthria Psychiatric: A+Ox3, euthymic affect Genitourinary: no CVA tenderness Lymphatic: + LLE edema Principal Diagnosis Acute deep vein thrombosis (DVT) of left lower extremity: Colon (Sigmoid) cancer involving the bladder, with metastases to liver, omentum Discharge Exam General- No acute distress Head- atraumatic Eyes- PERRL, EOMI, ENT- oropharynx clear Neck- supple, no JVD Lungs- clear to auscultation Heart- regular rhythm; no murmur Abdomen- normal bowel sounds, soft, nontender,+ostomy bag, +abdominal hernia Extremities- no calf tenderness, +LLE edema Neuro- alert, oriented x 3; PERRL, EOMI; no facial palsy; no dysarthria Skin- warm & dry Discharge Data Allergies Allergy/AdvReac Type Severity Reaction Status Date / Time No Known Allergies Allergy Unverified 01/30/21 16:48 Consultations 01/30/21 18:34 ED Decision to Admit Stat 01/31/21 08:00 Consult Radiation Oncology Routine Consult Vascular Surgery Routine Procedures Performed Operation Date: 02/01/21 14:15 Actual Procedures p Inferior Vena Cava Filter Placement Right Femoral Approach, Ultrasound Localization of Right Femoral Vein, Fluoroscopy for Positioning, Moderate Sedation [id number](Right) - Brayden Doyle MD Ordered Studies 02/01/21 12:00 EV IVC filter placement Routine XR chest 1V portable HISTORY: weakness COMPARISON: Chest 10/19/2018. FINDINGS: No pneumothorax. No pleural effusions. The heart is normal in size. There is a left subclavian Port-A-Cath which terminates in the SVC. Improved aeration within the lung bases with a few bibasilar linear densities remaining. This favors subsegmental atelectasis or scarring. No new focal lung consolidations to suggest pneumonia. No evidence for pulmonary edema. IMPRESSION: Improved aeration within the lung bases. Otherwise, no acute process within the chest. ACT 112: Negative or not required by law. Electronically signed by: Jeffery Garsia M.D. 01/30/2021 4:34 PM Dictated: 01/30/21 1633Transcribed: 01/30/21 1633 Hospital Course (1) Acute deep vein thrombosis (DVT) of left lower extremity: Acute LLE DVT Mostly due to Metastatic colorectal CA causing hypercoagulable state and DVT Pt was sent to the ER by Hematology/Oncology Dr. Layne Pt said that he was on Eliquis that stopped recently due to hematuria Pt was sent for lower extremity Doppler and found to have acute left lower extremity DVT (the common femoral) In the ER he was starting on IV heparin without bolus Vascular surgery was consulted for IVC filter placement Continue monitor H&H given recent hematuria Status post IVC filter placed by Dr. Doyle Case discussed with oncology recommended to transition to Eliquis 2.5 mg twice daily then he will reassess the patient outpatient if Eliquis needs to increase to 5 mg twice daily Check BMP within a week to monitor hemoglobin Hx of PE Pt was on Eliquis for about 3 months when he developed hematuria Was hospitalized earlier this month, discharged on 01/18, required blood transfusion Eliquis was stopped On IV heparin currently, transition to Eliquis 2.5 twice daily Status post IVC filter placed Colon (Sigmoid) cancer involving the bladder, with metastases to liver, omentum Diagnosed in October 2016 Recent hx of Hematuria secondary to above Follows with heme/onc Dr. Layne , Dr. Bardales (colorectal) and Dr. Zurita (urology) No surgical procedures planned Changed chemotherapy on 01/29 to Lonsurf on 01/29, 80 bid, per Dr. Layne Radiation Oncology on board. Recommended Palliative external beam radiation therapy to colorectal mass invading bladder. Plan for 10 to 15 fractions. since pt lives in [place], he will decide if he wants to follow with [place] radiation oncology or [facility] Code: DNR/DNI Disposition We will discharge home today Total Time Total Time Spent Total Time Spent (In Minutes): 35 minutes Discharge Plan Discharge Items Patient Disposition: Home - Self-Care Reason For Visit: ACUTE DVT, HX OF HEMATURIA Discharge Diagnosis: Acute deep vein thrombosis (DVT) of left lower extremity: Colon (Sigmoid) cancer involving the bladder, with metastases to liver, omentum Activity: Resume your previous activity Non-emergency contact: Primary Care Provider Call non-emergency contact if: you have any medication questions Follow-up/Referrals: Collin Juarez MD [Primary Care Provider] - 02/08/21 11:00 am (With Shakir Patel of [facility] ) Diet: Heart Healthy Addtl Attending Provider Instructions: Follow up with your primary care provider Dr. Juarez on 02/08/21 at 11:00 AM Follow up with Oncology dr. Paulie Layne Follow up with Radiation Oncology (Your provider will place a referral if you choose to follow with [facility] ) Continue monitor for any abnormal bleeding ( blood in stool, urine,..) Check CBC in 1 week to monitor your hemoglobin Fall precaution Medication Instructions:Eliquis Your condition is typically treated with an anticoagulant. Anticoagulants will thin your blood to help prevent new clots. You should take her medication exactly as directed. Never skip a dose. Never take a double dose. If you miss a dose, take it as soon as you remember. Avoid NSAIDs (Motrin, Aleve, Naproxen, Ibuprofen, Advil, Meloxicam,..) due to risks of bleeding Call your Primary Care doctor if you experience any of the following: Swelling or Pain in your leg Sudden, continuous pain deep in a muscle Pain that worsens when you are active or when you stand still for a long time Chest Pain Sudden Shortness of Breath Rapid or pounding heart beat Fainting Dizziness Cough with blood or bloody sputum Sweating more than normal Bruises Heavy or uncontrolled bleeding Blood in your urine, stool or vomit Black or tarry stools Caring for Your Self at Home: Avoid sitting, standing or lying down for long periods without moving your legs and feet When traveling by car, stop to get out and move around at least once every 3 hours On long airplane, train or bus rides, get up and move around when possible If you can't get up, wiggle your toes and tighten your calves to keep your blood moving Pending Studies at Discharge: No Stand-Alone Forms: My [facility] Total Immersion, Smoking Cessation Medications and DC Order Prescriptions: New Eliquis 2.5 mg Tablet 2.5 mg PO BID 30 Days Qty: 60 RF: 0 Continued omeprazole magnesium [Prilosec OTC] 20 mg Tablet,Delayed Release (Dr/Ec) 20 mg PO QAM RF: 0 Probiotic 3 billion cell Capsule 3,000 mmu cells PO QAM RF: 0 ascorbic acid (vitamin C) 1,000 mg Tablet 1 g PO QAM RF: 0 ondansetron HCl 8 mg tablet 8 mg PO UD PRN (Reason: Nausea And Vomiting) RF: 0 nystatin-triamcinolone 100,000-0.1 unit/g-% cream 1 applic TOPICAL UD PRN (Reason: Rash) RF: 0 zinc oxide Cream 2 applic TOPICAL UD RF: 0 Lonsurf 20-8.19 mg tablet 4 tab PO BID RF: 0 Discontinued Eliquis 5 mg tablet 5 mg PO BID RF: 0 Discharge Orders: Discharge Order (Routine); Ordered 02/02/21 Ordered By: Yony Benites Admission Data Admit Date/Time: 01/30/21 18:44 Attending Provider: Yony Benites Admit Provider: Tor Thomason Primary Care Provider: Collin Juarez Other Providers: Tor Thomason ; Eliana Layne ; Brayden Doyle Other Interventions: Discharge Summary Assessment (RN) Last Done: 02/02/21 15:40
== END 2021-02-02 17:15 | disposition home or self-care (01) | DRG 300 ==
LOC: ED 14:06 → SUATTDRO 18:44 → EDINP 18:44 → 1E 01-31 14:16
DX: C78.7 Secondary malignant neoplasm of liver and intrahepatic bile duct; Z86.718 Personal history of other venous thrombosis and embolism; Z66 Do not resuscitate; C79.11 Secondary malignant neoplasm of bladder; Z86.711 Personal history of pulmonary embolism; I82.412 Acute embolism and thrombosis of left femoral vein; C78.6 Secondary malignant neoplasm of retroperitoneum and peritoneum; Z43.2 Encounter for attention to ileostomy; F17.290 Nicotine dependence, other tobacco product, uncomplicated; D68.69 Other thrombophilia; C18.7 Malignant neoplasm of sigmoid colon

== ENCOUNTER 2021-03-24 09:43 | Inpatient (IN) ==
[2021-03-24] MEDS ORDERED: ONDANSETRON INJ 2 MG/ML 2 ML VIAL IV STA (10:22)
[2021-03-24 10:25] LABS: INR 1.5 (0.9-1.1); Partial Thromboplastin Ratio 1.3; Partial Thromboplastin Time 35.4 Seconds (21.0-31.0); Prothrombin Time 15.1 Seconds (9.0-12.0)
[2021-03-24] MEDS ORDERED: SODIUM CHLORIDE 0.9% 250 ML IV PRN ×3 (10:29→20:13)
--- NOTE | 2021-03-24 10:29 | Emergency Department Note ---
Impression & Plan Acute lower GI bleeding, Thrombocytopathia, Bowel obstruction, Weakness ED Provider Note NAME: JUAN ROSARIO AGE: 70 SEX: M : 1950 ARRIVES VIA: Walk-In INFORMANT: Patient, ED PROVIDER(S): Chaim Zhao DO CHIEF COMPLAINT: Generalized weakness HPI: The patient is a 70-year-old male who presented to the emergency department for an evaluation of generalized weakness. The patient has a history of colon cancer. He is being treated most recently with radiation therapy. He is also been receiving chemotherapy. 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 The patient has not taken his Eliquis since last evening. Over the last few days him and his significant other have noticed that he has been having episodes of GI bleeding. He has been bleeding around the stoma in his abdomen as well as some rectal bleeding. They describe it is bright red blood. The patient has started to notice weakness with any ambulation. He also is noticing shortness of breath with any ambulation. He denies having any fever or chills. He has had no recent trauma. He came to the emergency department today suspicious of significant anemia requiring transfusion. ROS: See above HPI for pertinent positives & negatives. A total of 10 systems reviewed and were otherwise negative. PAST MEDICAL HISTORY: See Below PAST SURGICAL HISTORY: See Below FAMILY HISTORY: See Below SOCIAL HISTORY: See Below HOME MEDICATIONS: See Below ALLERGIES: See Below VITALS: See Below PHYSICAL EXAMINATION: GENERAL: The patient is awake and alert. He is very anxious appearing. EYES: The conjunctivae are pale. The pupils are round and reactive. EARS, NOSE, MOUTH AND THROAT: The nose is without any evidence of any deformity. NECK: The neck is nontender and supple. RESPIRATORY: Normal respiratory effort is noted there is no evidence of wheezing rhonchi or rales CARDIOVASCULAR: Tachycardic rate with regular rhythm was noted. There was no definite murmur. GASTROINTESTINAL: The abdomen is soft. Abdomen is mildly distended. There is an ostomy noted in the left side of the abdomen. There is no guarding or rigidi ty. MUSCULOSKELETAL/EXTREMITIES: There is no evidence of gross deformity full range of motion is noted in the hips and shoulders. SKIN: Skin was cool and dry. Trace pedal edema was noted bilaterally. NEUROLOGIC: Patient is awake alert and oriented x3. MEDICAL DECISION MAKING: Patient is a 70-year-old male who presented to the emergency department for an evaluation of generalized weakness. The patient has had GI bleeding. He has a history of GI tumors. He has had an ostomy in the past as well as distal colon stenting. The patient noticed rectal bleeding as well as bleeding around his stoma. He is currently on oral anticoagulation for venous thromboembolic disease. The patient was found to have a very severe anemia. He was also found to be hypotensive. He was treated with resuscitative measures in the emergency department as well as blood transfusion. I did consent the patient for blood. I discussed the patient's laboratory and radiographic studies with him. I also discussed his case with the on-call [facility]. They have agreed to evaluate the patient in the emergency department for further management and disposition. Triage Nursing notes reviewed. Prior medical records reviewed Vital Signs: reviewed and remarkable for hypotension initially as well as tachycardia. Differential diagnosis: Diverticulosis, AVM, coagulopathy, colitis, inflammatory bowel disease, malignancy, Melisa-Jones tear, esophagitis, peptic ulcer disease, variceal bleed, gastritis, epistaxis, fissure, hemorrhoids, as well as other pathologies. ER treatment provided: See below Diagnostics interpreted by me: ECG: EKG was obtained in the emergency department. My interpretation is sinus tachycardia at 116 bpm. There was no ectopy. Nonspecific ST segment abnormalities were noted. This was compared to a tracing from January 302020. There is an increase in the rate. Cardiac Monitoring: An order was placed for continuous cardiac monitoring. The monitor shows a rate of 98 bpm with sinus rhythm. Laboratory studies: As stated above and show below. Imaging studies: See below Consultation(s): I discussed this case with Dr. Gonzalez who is on-call for the [facility]. They will evaluate the patient in the emergency department for further management and disposition. ED COURSE: Procedures: none PDMP:reviewed and no issues Critical Care: I have personally spent greater than 55 minutes of critical care time in the direct management of this patient. This includes bedside care, interpretation of diagnostic studies, and testing, discussion with consultants, patient, and family members, and other required patient management activities. This 55 minutes is in excess of all separately billable procedures. Past Med/Surg History Medical History (Updated 03/24/21 @ 18:18 by Kuldeep Aquino DO) Acute deep vein thrombosis (DVT) of left lower extremity Colon cancer Colon cancer metastasized to multiple sites Hydronephrosis Large bowel obstruction Pulmonary embolism Surgical History H/O colectomy H/O exploratory laparotomy H/O hernia repair Family History Father Prostate cancer Social History Smoking Status: Never smoker Tobacco Type: Cigars Hx Alcohol Use: Yes Alcohol type: hard liquor Hx Substance Use: Yes Preferred Language: Maltese Communication Ability: Effective Lead Data Architect Required: No Beliefs That Will Affect Care: None marital status: Current Living Situation: Spouse Current Living Situation Comment: Lives with current occupational status: retired Feels Safe at Home: Yes Assistive Devices: Glasses Allergies Allergies Allergy/AdvReac Type Severity Reaction Status Date / Time No Known Allergies Allergy Unverified 03/24/21 10:34 Home Meds Home Medications Medication Instructions Recorded Confirmed lactobacillus combination no.4 3 3,000 mmu cells PO QAM 10/19/18 03/24/21 billion cell capsule (Probiotic) omeprazole magnesium 20 mg 20 mg PO QAM 10/19/18 03/24/21 tablet,delayed release (Prilosec OTC) nystatin-triamcinolone 100,000 1 applic TOPICAL UD PRN 01/16/21 03/24/21 unit/g-0.1 % topical cream ondansetron HCl 8 mg tablet 8 mg PO UD PRN 01/16/21 03/24/21 trifluridine 20 mg-tipiracil 8.19 4 tab PO UD 01/30/21 03/24/21 mg tablet (Lonsurf) apixaban 2.5 mg tablet (Eliquis) 2.5 mg PO BID 03/24/21 03/24/21 dimethicone 1 %-zinc oxide 10 1 applic TOPICAL UD 03/24/21 03/24/21 %-vit A and D-aloe vera topical cream (Zinc Oxide Diaper Cream) folic acid 1 mg tablet 1 mg PO HS 03/24/21 03/24/21 solifenacin 10 mg tablet (Vesicare) 10 mg PO HS 03/24/21 03/24/21 Results & Data (ED) Vital Signs Vital Signs - 24 hr 03/24/21 09:45 03/24/21 10:28 03/24/21 10:34 Temperature Temperature Source Pulse Rate 112 H Pulse Rate [Apical] 116 H Respiratory Rate 20 20 Respiratory Effort / Characteristics Non-Labored Spontaneous Respiratory Depth Normal Respiratory Pattern Regular Blood Pressure 77/43 L Blood Pressure [Right Arm] 108/64 Blood Pressure Mean 54 Blood Pressure Mean [Right Arm] 78 Pulse Oximetry 98 96 Oxygen Delivery Method Room Air Room Air Oxygen Flow Rate Sepsis Recent Fever Within 48 Hours No Sepsis New/Unexplained Change in Mental Status N/A Sepsis Action Taken by Nursing No Action Required 03/24/21 11:00 03/24/21 11:35 03/24/21 11:55 Temperature 37.5 C 37.3 C Temperature Source Oral Oral Pulse Rate 113 H 108 H 113 H Pulse Rate [Apical] Respiratory Rate 24 24 24 Respiratory Effort / Characteristics Respiratory Depth Respiratory Pattern Blood Pressure 98/54 L 100/62 98/53 L Blood Pressure [Right Arm] Blood Pressure Mean 68 74 68 Blood Pressure Mean [Right Arm] Pulse Oximetry 97 97 97 Oxygen Delivery Method Room Air Oxygen Flow Rate 0 Sepsis Recent Fever Within 48 Hours Sepsis New/Unexplained Change in Mental Status Sepsis Action Taken by Jail Medications Current Medication List: was personally reviewed by me Laboratory Data Attestation: I reviewed the patient's lab results. Result diagrams: 03/25/21 03:51 03/25/21 03:51 Lab Results 03/24/21 03/24/21 03/24/21 Range/Units 10:02 10:02 10:02 WBC 1.21 L (4.8-10.8) K/uL RBC 1.20 L (4.7-6.1) M/uL Hgb 4.0 L* (14.0-18.0) g/dL Hct 12.3 L* (42-52) % MCV 102.5 H (80-100) fL MCH 33.3 (25-34) pg MCHC 32.5 (32-36) g/dL Plt Count 22 L* (130-400) K/uL Immature Gran % (Auto) 5.8 % Neut % (Auto) 51.2 % Lymph % (Auto) 40.5 % Loup % (Auto) 0.8 % Eos % (Auto) 1.7 % Baso % (Auto) 0.0 % Neut # (Auto) 0.62 L* (1.4-6.5) K/uL Lymph # (Auto) 0.49 L (1.2-3.4) K/uL Loup # (Auto) 0.01 L (0.11-0.59) K/uL Eos # (Auto) 0.02 (0-0.5) K/uL Baso # (Auto) 0.00 (0-0.2) K/uL Immature Gran # (Auto) 0.07 H (0.00-0.02) K/uL Platelet Estimate SIGNIFIC DECREASED (Normal) Hypochromasia Present Microcytosis Present Tear Drop Cells 1+ PT (9.0-12.0) Seconds INR (0.9-1.1) APTT (21.0-31.0) Seconds PTT Ratio Sodium 138 (136-145) mmol/L Potassium 4.0 (3.5-5.1) mmol/L Chloride 108 H (98-107) mmol/L Carbon Dioxide 24 (21-32) mmol/L Anion Gap 6.0 (3-11) BUN 26 H (7-18) mg/dl Creatinine 1.39 (0.6-1.4) mg/dl Est Cr Clr Drug Dosing Not Reportable Est GFR ( Amer) 58.3 ml/min Est GFR (Non-Af Amer) 50.3 ml/min BUN/Creatinine Ratio 18.6 (10-20) Glucose 130 H (70-99) mg/dl Calcium 7.6 L (8.5-10.1) mg/dl Total Bilirubin 1.2 H (0.2-1) mg/dl AST 23 (15-37) U/L ALT 16 (12-78) U/L Alkaline Phosphatase 85 (45-117) U/L Troponin I < 0.015 (0-0.045) ng/ml Total Protein 6.9 (6.4-8.2) gm/dl Albumin 1.2 L (3.4-5.0) gm/dl Globulin 5.7 H (2.5-4.0) gm/dl Albumin/Globulin Ratio 0.2 L (0.9-2) TSH 4.320 (0.300-4.500) uIu/ml COVID-19 Eval Order SARS-CoV-2 (PCR) (Negative) Blood Type B Positive Antibody Screen NEGATIVE Crossmatch See Detail 03/24/21 03/24/21 03/24/21 Range/Units 10:02 10:20 10:20 WBC (4.8-10.8) K/uL RBC (4.7-6.1) M/uL Hgb (14.0-18.0) g/dL Hct (42-52) % MCV (80-100) fL MCH (25-34) pg MCHC (32-36) g/dL Plt Count (130-400) K/uL Immature Gran % (Auto) % Neut % (Auto) % Lymph % (Auto) % Loup % (Auto) % Eos % (Auto) % Baso % (Auto) % Neut # (Auto) (1.4-6.5) K/uL Lymph # (Auto) (1.2-3.4) K/uL Loup # (Auto) (0.11-0.59) K/uL Eos # (Auto) (0-0.5) K/uL Baso # (Auto) (0-0.2) K/uL Immature Gran # (Auto) (0.00-0.02) K/uL Platelet Estimate (Normal) Hypochromasia Microcytosis Tear Drop Cells PT 15.1 H (9.0-12.0) Seconds INR 1.5 H (0.9-1.1) APTT 35.4 H (21.0-31.0) Seconds PTT Ratio 1.3 Sodium (136-145) mmol/L Potassium (3.5-5.1) mmol/L Chloride (98-107) mmol/L Carbon Dioxide (21-32) mmol/L Anion Gap (3-11) BUN (7-18) mg/dl Creatinine (0.6-1.4) mg/dl Est Cr Clr Drug Dosing Est GFR ( Amer) ml/min Est GFR (Non-Af Amer) ml/min BUN/Creatinine Ratio (10-20) Glucose (70-99) mg/dl Calcium (8.5-10.1) mg/dl Total Bilirubin (0.2-1) mg/dl AST (15-37) U/L ALT (12-78) U/L Alkaline Phosphatase (45-117) U/L Troponin I (0-0.045) ng/ml Total Protein (6.4-8.2) gm/dl Albumin (3.4-5.0) gm/dl Globulin (2.5-4.0) gm/dl Albumin/Globulin Ratio (0.9-2) TSH (0.300-4.500) uIu/ml COVID-19 Eval Order Covid19 at [facility] SARS-CoV-2 (PCR) NEGATIVE (Negative) Blood Type Antibody Screen Crossmatch Administered Medications Pantoprazole Sodium 40 mg/ (Dextrose) 100 mls @ 20 mls/hr IV Q5H AD Stop: 04/23/21 12:44 Last Admin: 03/25/21 03:51 Dose: 8 mg/hr, 20 mls/hr Documented by: [id number] Infusion: 03/25/21 03:51 Dose: 8 mg/hr, 20 mls/hr Documented by: [id number] Admin: 03/24/21 23:17 Dose: 8 mg/hr, 20 mls/hr Documented by: [id number] Infusion: 03/24/21 23:17 Dose: 8 mg/hr, 20 mls/hr Documented by: [id number] Admin: 03/24/21 18:32 Dose: 8 mg/hr, 20 mls/hr Documented by: [id number] Infusion: 03/24/21 18:27 Dose: 8 mg/hr, 20 mls/hr Documented by: [id number] Admin: 03/24/21 13:27 Dose: 8 mg/hr, 20 mls/hr Documented by: [id number] Discontinued Medications Pantoprazole Sodium (Protonix Bolus/Drip) 0 mls @ 1 mls/hr IV ONE STA Stop: 03/24/21 12:17 Last Admin: 03/24/21 17:35 Dose: Not Given Documented by: [id number] Pantoprazole Sodium 80 mg/ (Dextrose) 120 mls @ 480 mls/hr IV NOW ONE Stop: 03/24/21 12:59 Last Infusion: 03/24/21 13:18 Dose: 0 mls/hr Documented by: [id number] Admin: 03/24/21 13:03 Dose: 480 mls/hr Documented by: [id number] Furosemide 20 mg/ Syringe 2 mls @ 4 mls/min IV 0520 AD Stop: 03/25/21 06:00 Last Admin: 03/25/21 06:15 Dose: 4 mls/min Documented by: [id number] Ioversol (Optiray 320 100ml) 94 ml IV ONCE ONE Stop: 03/24/21 12:23 Last Admin: 03/24/21 12:24 Dose: 94 ml Documented by: [id number] Ondansetron HCl (Ondansetron Inj 2 Mg/Ml 2 Ml Vial) 4 mg IV NOW STA Stop: 03/24/21 10:23 Last Admin: 03/24/21 10:27 Dose: Not Given Documented by: [id number] Imaging Data Radiologist's Impression: Chest X-Ray 03/24/21 09:55 XR chest 1V portable HISTORY: weakness COMPARISON: Chest 01/30/2021. FINDINGS: No pneumothorax. No pleural effusions. The heart is normal in size. No focal lung consolidations to suggest pneumonia. No evidence for pulmonary edema. Left subclavian Port-A-Cath terminates at the SVC. IMPRESSION: No acute process. ACT 112: Negative or not required by law. Electronically signed by: Jeffery Garsia M.D. 03/24/2021 10:53 AM Abdomen/Pelvis CT 03/24/21 11:[address] WITH IV CONTRAST CT DOSE: 935.91 mGy.cm HISTORY: GI bleed. TECHNIQUE: Multiaxial CT images of the abdomen and pelvis were performed following the use of intravenous contrast. A dose lowering technique was utiliz ed adhering to the principles of ALARA. COMPARISON STUDY: Abdomen and pelvis CT 01/16/2021. FINDINGS: Slight increase in size in the metastatic pulmonary nodules seen within the lung bases. There are small bilateral pleural effusions which have also increased in size. No suspicious lytic or blastic osseous lesions. There are a few hypodense lesions within the liver which have slightly increased in size. These are consistent with metastatic disease. Dominant lesion within the right hepatic lobe measures 3.2 cm. The gallbladder, spleen, adrenal glands, pancreas are unremarkable. Right renal cysts are again noted. No right-sided hydronephrosis. No significant change in the moderate left hydroureteronephrosis to the level of the distal left ureter. This is likely obstructed by the infiltrative sigmoid mass. An IVC filter is in good position. Small amount of ascites is again noted. This has slightly improved in the interval. The main portal vein is patent. No retroperitoneal lymphadenopathy. Moderate body wall edema. Multiple omental irregular masses are again noted consistent with peritoneal carcinomatosis. There is again noted a 3 cm soft tissue nodule within the fat-containing hiatus hernia. This is consistent with metastatic disease and has increased in size. There is again noted a metallic stent within the sigmoid colon which is unchanged in position. Gas and debris within the stent suggests patency. The infiltrative/irregular sigmoid mass surrounding the stent appears to have slightly increased in size. This continues to invade and extend into the bladder dome. There is a 3.7 cm soft tissue component seen within the bladder. Soft tissue tumor extends into the anterior abdominal wall at the midline incision as well as the perirectal space. This is similar to the prior study. Bladder calculi, unchanged. Ventral abdominal wall hernia containing loops of bowel remains unchanged. Is also a left lower quadrant ostomy. The colon proximal to the stent demonstrates increased distention and is filled with gas and fluid. There is focal narrowing immediately proximal to the stent at the sigmoid colon. Therefore, this favors a developing large bowel obstruction. The small bowel are normal in caliber. IMPRESSION: 1. Progressive metastatic disease within the chest, abdomen, pelvis as described above. 2. The large infiltrative sigmoid mass is also increased in size as described above. Extension into the bladder dome, anterior abdominal wall/incision, and perirectal space is again noted. 3. The sigmoid stent is unchanged in position. There is progressive dilatation of the large bowel proximal to the sigmoid stent with focal decompression of the sigmoid colon immediately proximal to the sigmoid stent. Therefore, this favors a developing large bowel obstruction with the transition point immediately proximal to the sigmoid stent. 4. Small bilateral pleural effusions have increased in size. 5. No change in the left-sided hydronephrosis secondary to the sigmoid mass. 6. Additional findings as described above. ACT 112: Negative or not required by law. Electronically signed by: Jeffery Garsia M.D. 03/24/2021 12:39 PM Discharge Plan Visit Data Chief Complaint: Weakness Stated Complaint: BLEEDING, WEAKNESS, UNABLE TO STAND ED Provider: Chaim Zhao Discharge Problem: Acute lower GI bleeding, Thrombocytopathia, Bowel obstruction, Weakness Patient Disposition: Admitted As Inpatient Discharge Instructions Interventions: ED Discharge Assessment Last Done: 03/24/21 13:28 Discharge Problem: Bowel obstruction Qualifiers: Intestinal obstruction type: unspecified Intestinal obstruction extent: partial Qualified Code(s): K56.600 - Partial intestinal obstruction, unspecified as to cause
[2021-03-24 10:36] LABS: Alanine Aminotransferase 16 U/L (12-78); Albumin Level 1.2 gm/dl (3.4-5.0); Aspartate Aminotransferase 23 U/L (15-37); BUN Creatinine Ratio 18.6 (10-20); Blood Urea Nitrogen 26 mg/dl (7-18); Calcium 7.6 mg/dl (8.5-10.1); Carbon Dioxide 24 mmol/L (21-32); Chloride 108 mmol/L (98-107); Est GFR (African American) 58.3 ml/min; Est GFR (Non-African American) 50.3 ml/min; Glucose 130 mg/dl (70-99); Sodium 138 mmol/L (136-145)
[2021-03-24 10:46] LABS: Albumin Globulin Ratio 0.2 (0.9-2); Alkaline Phosphatase 85 U/L (45-117); Bilirubin,Total 1.2 mg/dl (0.2-1); Globulin 5.7 gm/dl (2.5-4.0); Total Protein 6.9 gm/dl (6.4-8.2); Troponin I < 0.015 ng/ml (0-0.045)
--- NOTE | 2021-03-24 10:54 | XRay Report ---
XR chest 1V portable HISTORY: weakness COMPARISON: Chest 01/30/2021. FINDINGS: No pneumothorax. No pleural effusions. The heart is normal in size. No focal lung consolida tions to suggest pneumonia. No evidence for pulmonary edema. Left subclavian Port-A-Cath terminates a t the SVC. IMPRESSION: No acute process. ACT 112: Negative or not required by law. Electronically signed by: Jeffery Garsia M.D. 03/24/2021 10:53 AM
[2021-03-24 10:55] LABS: Hematocrit (blood only) 12.3 % (42-52); Mean Corpuscular Hemoglobin 33.3 pg (25-34); Mean Corpuscular Hgb Conc 32.5 g/dL (32-36); Mean Corpuscular Volume 102.5 fL (80-100); Platelet Count 22 K/uL (130-400); White Blood Count 1.21 K/uL (4.8-10.8)
[2021-03-24 10:56] LABS: Eosinophils # (auto) 0.02 K/uL (0-0.5); Eosinophils % (auto) 1.7 %; Hypochromasia Present; Immature Granulocytes # (auto) 0.07 K/uL (0.00-0.02); Immature Granulocytes % (auto) 5.8 %; Lymphocytes # (auto) 0.49 K/uL (1.2-3.4); Lymphocytes % (auto) 40.5 %; Microcytosis Present; Monocytes # (auto) 0.01 K/uL (0.11-0.59); Monocytes % (auto) 0.8 %; Neutrophils # (auto) 0.62 K/uL (1.4-6.5); Neutrophils % (auto) 51.2 %; Platelet Estimate SIGNIFIC DECREASED (Normal); Tear Drop Cells 1+
[2021-03-24] MEDS ORDERED: PANTOPRAZOLE BOLUS/DRIP 1 EA IV STA (12:16)
[2021-03-24] MEDS ORDERED: OPTIRAY 320 100ml IV ONE (12:22)
--- NOTE | 2021-03-24 12:41 | CT Scan Report ---
ABDOMEN AND PELVIS CT WITH IV CONTRAST CT DOSE: 935.91 mGy.cm HISTORY: GI bleed. TECHNIQUE: Multiaxial CT images of the abdomen and pelvis were performed following the use of intrave nous contrast. A dose lowering technique was utilized adhering to the principles of ALARA. COMPARISON STUDY: Abdomen and pelvis CT 01/16/2021. FINDINGS: Slight increase in size in the metastatic pulmonary nodules seen within the lung bases. The re are small bilateral pleural effusions which have also increased in size. No suspicious lytic or bl astic osseous lesions. There are a few hypodense lesions within the liver which have slightly increas ed in size. These are consistent with metastatic disease. Dominant lesion within the right hepatic lo be measures 3.2 cm. The gallbladder, spleen, adrenal glands, pancreas are unremarkable. Right renal c ysts are again noted. No right-sided hydronephrosis. No significant change in the moderate left hydro ureteronephrosis to the level of the distal left ureter. This is likely obstructed by the infiltrativ e sigmoid mass. An IVC filter is in good position. Small amount of ascites is again noted. This has s lightly improved in the interval. The main portal vein is patent. No retroperitoneal lymphadenopathy. Moderate body wall edema. Multiple omental irregular masses are again noted consistent with peritone al carcinomatosis. There is again noted a 3 cm soft tissue nodule within the fat-containing hiatus he rnia. This is consistent with metastatic disease and has increased in size. There is again noted a me tallic stent within the sigmoid colon which is unchanged in position. Gas and debris within the stent suggests patency. The infiltrative/irregular sigmoid mass surrounding the stent appears to have slig htly increased in size. This continues to invade and extend into the bladder dome. There is a 3.7 cm soft tissue component seen within the bladder. Soft tissue tumor extends into the anterior abdominal wall at the midline incision as well as the perirectal space. This is similar to the prior study. Osei dder calculi, unchanged. Ventral abdominal wall hernia containing loops of bowel remains unchanged. I s also a left lower quadrant ostomy. The colon proximal to the stent demonstrates increased distentio n and is filled with gas and fluid. There is focal narrowing immediately proximal to the stent at the sigmoid colon. Therefore, this favors a developing large bowel obstruction. The small bowel are norm al in caliber. IMPRESSION: 1. Progressive metastatic disease within the chest, abdomen, pelvis as described above. 2. The large infiltrative sigmoid mass is also increased in size as described above. Extension into t he bladder dome, anterior abdominal wall/incision, and perirectal space is again noted. 3. The sigmoid stent is unchanged in position. There is progressive dilatation of the large bowel pro ximal to the sigmoid stent with focal decompression of the sigmoid colon immediately proximal to the sigmoid stent. Therefore, this favors a developing large bowel obstruction with the transition point immediately proximal to the sigmoid stent. 4. Small bilateral pleural effusions have increased in size. 5. No change in the left-sided hydronephrosis secondary to the sigmoid mass. 6. Additional findings as described above. ACT 112: Negative or not required by law. Electronically signed by: Jeffery Garsia M.D. 03/24/2021 12:39 PM
[2021-03-24] MEDS ORDERED: PANTOprazole 80 MG in DEXTROSE 5% 100 ML IV ONE (12:45)
[2021-03-24] MEDS: PANTOprazole 40 MG in DEXTROSE 5% 100 ML IV SCH ×3 (13:27→23:17)
[2021-03-24] MEDS ORDERED: INFLUENZA VACCINE HIGH DOSE PF 65+ 0.7 ML SYR IM ONE (14:35)
--- NOTE | 2021-03-24 14:53 | History & Physical Report ---
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, omentum, stage IV disease -CT abd/pelvis: showed sigmoid mass increased in size -pt recently completed radiation treatment 2 weeks ago - depending on the progression of anemia and response to transfusion will cons ider palliative consult Gluteal cleft skin tear: -wound care consult PE and hx of DVT: -hold eliquis Diet: NPO for now DVT PPx: SCD Code Status: FULL CODE Emergency Contact: [phone] Admission and Anticipated Discharge Date Admission Date: March 24, 2021 History of Present Illness Primary Care Provider: Collin Juarez MD Pt is a 70 y/o M with hx of sigmoid colon adenocarcinoma with metastatic diseas e involving the liver, omentum, stage IV disease (diagnosed in Oct, 2016) & recently completed radiation and 1st cycle of chemotherapy (yesterday), hx of small bowel resection with sigmoid stent and ileostomy placement, hx of PE and LLE DVT s/p IVC filter and on eliquis, Chronic anemia came into the ER with 2 days hx of generalized weakness, mild blood around the stoma and dried blood around the rectum. Pt also complained of SOB with exertion but denied any CP At bedside: he denied any acute CP, SOB, abd pain, N/V. In the ER pt received 4 units of PRBC and 1 unit of platelet Allergies Allergy/AdvReac Type Severity Reaction Status Date / Time No Known Allergies Allergy Unverified 03/24/21 10:34 Home Medications Medication Instructions Recorded Confirmed Type lactobacillus combination no.4 3 3,000 mmu cells PO QAM 10/19/18 03/24/21 History billion cell capsule (Probiotic) omeprazole magnesium 20 mg 20 mg PO QAM 10/19/18 03/24/21 History tablet,delayed release (Prilosec OTC) nystatin-triamcinolone 100,000 1 applic TOPICAL UD PRN 01/16/21 03/24/21 History unit/g-0.1 % topical cream ondansetron HCl 8 mg tablet 8 mg PO UD PRN 01/16/21 03/24/21 History trifluridine 20 mg-tipiracil 8.19 4 tab PO UD 01/30/21 03/24/21 History mg tablet (Lonsurf) apixaban 2.5 mg tablet (Eliquis) 2.5 mg PO BID 03/24/21 03/24/21 History dimethicone 1 %-zinc oxide 10 1 applic TOPICAL UD 03/24/21 03/24/21 History %-vit A and D-aloe vera topical cream (Zinc Oxide Diaper Cream) folic acid 1 mg tablet 1 mg PO HS 03/24/21 03/24/21 History solifenacin 10 mg tablet (Vesicare) 10 mg PO HS 03/24/21 03/24/21 History Past Med/Surg History Medical History Acute deep vein thrombosis (DVT) of left lower extremity Colon cancer Colon cancer metastasized to multiple sites Hydronephrosis Large bowel obstruction Pulmonary embolism Surgical History H/O colectomy H/O exploratory laparotomy H/O hernia repair Family History Father Prostate cancer Social History Smoking Status: Never smoker Tobacco Type: Cigars Hx Alcohol Use: Yes Alcohol type: hard liquor Hx Substance Use: Yes Preferred Language: Italian Communication Ability: Effective Slitter Cut Off Operator Required: No Beliefs That Will Affect Care: None marital status: Current Living Situation: Spouse Current Living Situation Comment: Lives with current occupational status: retired Feels Safe at Home: Yes Assistive Devices: None, Denture - Upper, Denture - Lower and Glasses Review of Systems Review of Systems: At least 10 Review of systems were reviewed and all negative except as indicated in HPI Physical Exam Physical Exam: General:.mildy cachetic, NAD, well developed, well nourished HEENT:.pale b/l conjunctiva, Normocephalic and atraumatic, EOMI, Sclera is non- icteric Lungs:. No signs of respiratory distress, CTA, no wheezing or crackles Heart:. Normal S1, S2, no murmur Abdominal:.ileostomy in place (watery stool with trace blood), ND, Soft, NT, normal BS MSK:mild pitting edema of LLE Skin:open superficial wound in the gluteal cleft Psych:. AAOx3, normal affect Results & Data Results & Data ([facility]) Vital Signs (Past 12 Hours) Vital Signs Temp Pulse Pulse Resp BP BP Pulse Ox 03/24/21 14:13 36.8 C 101 H 20 96/59 L 99 03/24/21 13:59 36.9 C 108 H 22 99/59 L 100 03/24/21 13:40 37.3 C 100 H 25 H 99/70 L 98 03/24/21 13:31 103 H 28 H 100/59 L 98 03/24/21 13:11 106 H 26 H 105/57 L 99 03/24/21 12:40 37.2 C 106 H 91/56 L 97 03/24/21 12:10 37.5 C 109 H 22 104/52 L 98 03/24/21 11:55 37.3 C 113 H 24 98/53 L 97 03/24/21 11:35 37.5 C 108 H 24 100/62 97 03/24/21 11:00 113 H 24 98/54 L 97 03/24/21 10:34 116 H 20 108/64 96 03/24/21 09:45 112 H 20 77/43 L 98 Code Status & VTE Plan VTE Prophylaxis Plan VTE Prophylaxis will be ordered: Yes
--- NOTE | 2021-03-24 18:03 | Gastrointestinal Consultation ---
Date of Consultation March 24, 2021 Assessment & Plan (1) Bowel obstruction: (2) Acute lower GI bleeding: (3) Colon cancer metastasized to multiple sites: Extremely poor prognosis, with progression of disease despite chemo/radiation He would like to avoid any invasive testing, and I agree with this. Continue Protonix gtt at this time Best plan of care is to treat conservatively and supportively Would definitely recommend a palliative care consult during this hospitalization History of Present Illness Reason for Consultation: GI bleed, Anemia Attending Physician: Victoria Stockton MD History of Present Illness Victor Hugo Carter is a 70 yo CM with an extensive PMHx including widely metastatic Colon cancer s/p Stent placement x2 and history of SBO with ileostomy on chronic anticoagulation for history of PE who presented to the ER yesterday with complaints of generalized weakness, and SOB with dyspnea on exertion. Upon arrival he was noted to be pancytopenic with an H/H of 4.0 and 12.3 and a platelet count of 22. He did just finish a course of chemotherapy yesterday, and has recently completed radiation therapy. A CT scan of the Abd/Pelvis in the ER shows disease progression despite chemo/radiation therapy. He was admitted, started on a protonix gtt, and transfused PRBC and Platelets. At the time that I saw him this evening he had just finished his 2nd unit of 4 units of PRBC and had also received a platelet transfusion as well. He states that he feels much better since he received the transfusion and states that he just walked to the bathroom, and feels better. He denies any specific abdominal pain that is new or different, he does states he has mild persistent LLQ abdominal p ain. He denies any fevers, chills, nausea, vomiting, or jaundice. He did note some blood in his ileostomy bag, but states that it has been less since his arrival to [facility]. Allergies Allergy/AdvReac Type Severity Reaction Status Date / Time No Known Allergies Allergy Unverified 03/24/21 10:34 Home Medications Medication Instructions Recorded Confirmed Type lactobacillus combination no.4 3 3,000 mmu cells PO QAM 10/19/18 03/24/21 History billion cell capsule (Probiotic) omeprazole magnesium 20 mg 20 mg PO QAM 10/19/18 03/24/21 History tablet,delayed release (Prilosec OTC) nystatin-triamcinolone 100,000 1 applic TOPICAL UD PRN 01/16/21 03/24/21 History unit/g-0.1 % topical cream ondansetron HCl 8 mg tablet 8 mg PO UD PRN 01/16/21 03/24/21 History trifluridine 20 mg-tipiracil 8.19 4 tab PO UD 01/30/21 03/24/21 History mg tablet (Lonsurf) apixaban 2.5 mg tablet (Eliquis) 2.5 mg PO BID 03/24/21 03/24/21 History dimethicone 1 %-zinc oxide 10 1 applic TOPICAL UD 03/24/21 03/24/21 History %-vit A and D-aloe vera topical cream (Zinc Oxide Diaper Cream) folic acid 1 mg tablet 1 mg PO HS 03/24/21 03/24/21 History solifenacin 10 mg tablet (Vesicare) 10 mg PO HS 03/24/21 03/24/21 History Patient History Medical History (Updated 03/24/21 @ 18:18 by Kuldeep Aquino DO) Acute deep vein thrombosis (DVT) of left lower extremity Colon cancer Colon cancer metastasized to multiple sites Hydronephrosis Large bowel obstruction Pulmonary embolism Surgical History H/O colectomy H/O exploratory laparotomy H/O hernia repair Family History Father Prostate cancer Social History Smoking Status: Never smoker Tobacco Type: Cigars Hx Alcohol Use: Yes Alcohol type: hard liquor Hx Substance Use: Yes Preferred Language: Tuvaluan Communication Ability: Effective Bi Data Architect Required: No Beliefs That Will Affect Care: None marital status: Current Living Situation: Spouse Current Living Situation Comment: Lives with current occupational status: retired Feels Safe at Home: Yes Assistive Devices: None, Denture - Upper, Denture - Lower and Glasses Review of Systems Constitutional: as per Subjective / HPI Eyes: as per Subjective / HPI Ear, Nose, Mouth, Throat: as per Subjective / HPI Respiratory: as per Subjective / HPI Cardiovascular: as per Subjective / HPI Gastrointestinal: as per Subjective / HPI Musculoskeletal: as per Subjective / HPI Integumentary: as per Subjective / HPI Neurologic: as per Subjective / HPI Psychiatric: as per Subjective / HPI Endocrine: as per Subjective / HPI Hematologic / Lymphatic: as per Subjective / HPI Allergy / Immunological: as per Subjective / HPI Physical Exam Constitutional: + ill appearing; no acute distress Eyes: + anicteric sclerae ENMT: external ear and nose normal, oropharynx normal Neck: normal visual inspection Respiratory: normal respiratory effort, lungs clear to auscultation Cardiovascular: RRR, no murmur, no edema Gastrointestinal (Abdomen): Inspection/Auscultation: + abdomen distended and + abdominal surgical scar Percussion/Palpation: + abdomen tender (LLQ) and abdomen soft; no guarding and abdomen not rigid Ilestomy in place Skin: + pallor Psychiatric: A+Ox3, euthymic affect Results & Data ([facility]) Vital Signs (Past 12 Hours) Vital Signs Temp Pulse Pulse Resp BP BP Pulse Ox 03/24/21 17:38 36.6 C 101 H 20 90/38 L 100 03/24/21 17:23 36.7 C 98 H 20 99/65 L 100 03/24/21 17:03 36.5 C 101 H 20 91/55 L 100 03/24/21 16:45 36.6 C 97 H 18 111/69 100 03/24/21 16:00 36.8 C 74 16 118/73 96 03/24/21 15:50 36.6 C 96 H 18 102/65 100 03/24/21 15:20 36.6 C 98 H 20 100/64 100 03/24/21 15:05 36.3 C L 99 H 20 103/65 100 03/24/21 14:49 36.7 C 101 H 20 92/57 L 100 03/24/21 14:13 36.8 C 101 H 20 96/59 L 99 03/24/21 13:59 36.9 C 108 H 22 99/59 L 100 03/24/21 13:40 37.3 C 100 H 25 H 99/70 L 98 03/24/21 13:31 103 H 28 H 100/59 L 98 03/24/21 13:11 106 H 26 H 105/57 L 99 03/24/21 12:40 37.2 C 106 H 91/56 L 97 03/24/21 12:10 37.5 C 109 H 22 104/52 L 98 03/24/21 11:55 37.3 C 113 H 24 98/53 L 97 03/24/21 11:35 37.5 C 108 H 24 100/62 97 03/24/21 11:00 113 H 24 98/54 L 97 03/24/21 10:34 116 H 20 108/64 96 03/24/21 09:45 112 H 20 77/43 L 98 PG Care Time/CCT Total # of Minutes Spent Total Time Spent with Patient: Total time spent is greater than 50% in coordination of care (as documented) at patient's floor/unit and/or counseling patient: Coding Level of Care Code 73211 Initial Inpt Care Lvl 3 Diagnoses Bowel obstruction K56.600 Intestinal obstruction extent: partial Intestinal obstruction type: unspecified Acute lower GI bleeding K92.2 Colon cancer metastasized to multiple sites C18.9 (1) Bowel obstruction Intestinal obstruction extent: partial Intestinal obstruction type: unspecified Qualified Code(s): K56.600 - Partial intestinal obstruction, unspecified as to cause
[2021-03-24 18:29] LABS: Hematocrit (blood only) 16.8 % (42-52); Hemoglobin 5.7 g/dL (14.0-18.0); Mean Corpuscular Hgb Conc 33.9 g/dL (32-36); Mean Corpuscular Volume 94.4 fL (80-100); Platelet Count 13 K/uL (130-400); RDW Coefficient of Variation 20.2 % (11.5-14.5); RDW Standard Deviation 68.7 fL (36.4-46.3); Red Blood Count 1.78 M/uL (4.7-6.1); White Blood Count 0.84 K/uL (4.8-10.8)
[2021-03-24 19:02] LABS: Anisocytosis Present; Eosinophils # (auto) 0.01 K/uL (0-0.5); Eosinophils % (auto) 1.2 %; Hypochromasia Present; Immature Granulocytes # (auto) 0.03 K/uL (0.00-0.02); Immature Granulocytes % (auto) 3.6 %; Lymphocytes # (auto) 0.37 K/uL (1.2-3.4); Monocytes # (auto) 0.01 K/uL (0.11-0.59); Monocytes % (auto) 1.2 %; Neutrophils # (auto) 0.42 K/uL (1.4-6.5); Smudge Cells Present; Toxic Granulation 1+
--- NOTE | 2021-03-24 19:03 | Communication Note ---
Date of Service: March 24, 2021 repeat CBC: -hgb improving with 2 units -Plt: 13: blood work was drawn right after the platelet infusion -- will repeat CBC 1 hour after completion of transfusion - Hematology referral placed for thrombocytopenia
[2021-03-24 19:58] LABS: Appearance Urine Cloudy (Clear); Bacteria Urine Automated Negative (Negative); Blood Urine 3+ (Negative); Glucose Urine UA Negative (Negative); Ketones Urine Negative (Negative); Leukocyte Esterase Urine Trace (Negative); Nitrite Urine Negative (Negative); Protein Urine 1+ (Negative); RBC Urine Automated >30 /hpf (0-4); Specific Gravity Urine > 1.045 (1.000-1.030); Urobilinogen Urine Negative (Negative); pH Urine 5.5 (4.5-7.5)
[2021-03-24 20:01] LABS: Bilirubin Urine 1+ (Negative); Color Urine Dark Yellow
[2021-03-25] MEDS: PANTOprazole 40 MG in DEXTROSE 5% 100 ML IV SCH ×5 (03:51→22:41)
[2021-03-25 04:22] LABS: BUN Creatinine Ratio 24.5 (10-20); Calcium 7.2 mg/dl (8.5-10.1); Est GFR (African American) 74.1 ml/min; Est GFR (Non-African American) 63.9 ml/min; Potassium 3.7 mmol/L (3.5-5.1)
[2021-03-25 04:40] LABS: Albumin Globulin Ratio 0.2 (0.9-2); Bilirubin,Total 2.7 mg/dl (0.2-1); Globulin 4.9 gm/dl (2.5-4.0); Total Protein 5.9 gm/dl (6.4-8.2)
[2021-03-25 04:57] LABS: Hematocrit (blood only) 20.2 % (42-52); Hemoglobin 6.9 g/dL (14.0-18.0); Mean Corpuscular Hemoglobin 31.2 pg (25-34); Mean Corpuscular Hgb Conc 34.2 g/dL (32-36); Mean Corpuscular Volume 91.4 fL (80-100); Mean Platelet Volume 9.8 fL (7.4-10.4); Platelet Count 27 K/uL (130-400); RDW Coefficient of Variation 17.6 % (11.5-14.5); RDW Standard Deviation 57.4 fL (36.4-46.3); Red Blood Count 2.21 M/uL (4.7-6.1); White Blood Count 0.48 K/uL (4.8-10.8)
[2021-03-25] MEDS ORDERED: SODIUM CHLORIDE 0.9% 250 ML IV PRN (05:19)
[2021-03-25] MEDS ORDERED: FUROSEMIDE 20 MG in SYRINGE 0 ML IV SCH ×2 (05:20→07:20)
--- NOTE | 2021-03-25 09:42 | Electrocardiogram Report ---
Test Reason : Blood Pressure : / mmHG Vent. Rate : 116 BPM Atrial Rate : 116 BPM P-R Int : 000 ms QRS Dur : 080 ms QT Int : 458 ms P-R-T Axes : 000 064 076 degrees QTc Int : 636 ms Sinus tachycardia Nonspecific ST and T wave abnormality Abnormal ECG When compared with ECG of 30-JAN-2021 16:27, Nonspecific T wave abnormality now evident in Lateral leads Confirmed by Sandip Chauhan ([id number]) on 03/25/2021 9:42:30 AM Referred By: REFERRED SELF Confirmed By:Sandip Chauhan
[2021-03-25 10:01] LABS: Hematocrit (blood only) 24.7 % (42-52); Hemoglobin 8.5 g/dL (14.0-18.0); Mean Corpuscular Hemoglobin 31.5 pg (25-34); Mean Corpuscular Hgb Conc 34.4 g/dL (32-36); Mean Corpuscular Volume 91.5 fL (80-100); Mean Platelet Volume 9.6 fL (7.4-10.4); Platelet Count 25 K/uL (130-400); RDW Coefficient of Variation 17.1 % (11.5-14.5); RDW Standard Deviation 55.5 fL (36.4-46.3); White Blood Count 0.48 K/uL (4.8-10.8)
[2021-03-25 10:03] LABS: Anisocytosis Present; Eosinophils # (auto) 0.02 K/uL (0-0.5); Eosinophils % (auto) 4.2 %; Immature Granulocytes # (auto) 0.03 K/uL (0.00-0.02); Immature Granulocytes % (auto) 6.3 %; Lymphocytes # (auto) 0.24 K/uL (1.2-3.4); Monocytes # (auto) 0.02 K/uL (0.11-0.59); Monocytes % (auto) 4.2 %; Neutrophils # (auto) 0.17 K/uL (1.4-6.5); Neutrophils % (auto) 35.3 %
--- NOTE | 2021-03-25 10:35 | Gastroenterology Progress Note ---
Date of Service March 25, 2021 Assessment & Plan (1) Acute lower GI bleeding: (2) Colon cancer metastasized to multiple sites: Plan: Extremely poor prognosis, with progression of disease despite chemo/radiation He would like to avoid any invasive testing, and I agree with this. Continue Protonix gtt at this time Best plan of care is to treat conservatively and supportively Would definitely recommend a palliative care consult during this hospitalization Admission and Anticipated Discharge Date Admission Date: March 24, 2021 Subjective Doing better today, feels stronger after transfusions. Wants to go home. I explained to him his blood counts, specifically his WBC is extremely low with risk of infection increased, however, he states he does not feel the need to remain hospitalized. No overt GI bleeding overnight. Asking for advance in diet today. Review of Systems Constitutional: as per Subjective / HPI Eyes: as per Subjective / HPI Ear, Nose, Mouth, Throat: as per Subjective / HPI Respiratory: as per Subjective / HPI Cardiovascular: as per Subjective / HPI Gastrointestinal: as per Subjective / HPI Musculoskeletal: as per Subjective / HPI Integumentary: as per Subjective / HPI Neurologic: as per Subjective / HPI Psychiatric: as per Subjective / HPI Endocrine: as per Subjective / HPI Hematologic / Lymphatic: as per Subjective / HPI Allergy / Immunological: as per Subjective / HPI Physical Exam Constitutional: + ill appearing; no acute distress Eyes: + anicteric sclerae ENMT: external ear and nose normal, oropharynx normal Neck: normal visual inspection Respiratory: normal respiratory effort, lungs clear to auscultation Cardiovascular: RRR, no murmur, no edema Gastrointestinal (Abdomen): Inspection/Auscultation: + abdomen distended and + abdominal surgical scar Percussion/Palpation: + abdomen tender (LLQ) and abdomen soft; no guarding and abdomen not rigid Skin: + pallor Psychiatric: A+Ox3, euthymic affect Results & Data Results & Data ([facility]) Vital Signs (Past 12 Hours) Vital Signs Temp Pulse Pulse Resp BP BP Pulse Ox 03/25/21 08:22 36.8 C 101 H 20 114/65 98 03/25/21 08:00 103 H 03/25/21 07:22 36.8 C 108 H 20 113/69 98 03/25/21 06:52 37.1 C 104 H 18 117/77 99 03/25/21 06:37 36.7 C 108 H 20 110/49 L 98 10/17/21 06:18 37 C 104 H 16 114/71 98 03/25/21 04:22 37.0 C 102 H 22 132/76 96 03/25/21 02:19 37.4 C 104 H 18 102/60 97 03/25/21 02:13 37.4 C 104 H 20 107/63 96 03/25/21 01:13 36.8 C 110 H 20 114/70 92 03/25/21 00:43 37.6 C H 104 H 18 109/65 96 03/25/21 00:28 37.4 C 107 H 18 113/60 97 03/25/21 00:10 37.4 C 105 H 18 115/67 98 03/24/21 23:16 37.3 C 97 H 18 105/65 97 03/24/21 22:50 37.5 C 108 H 18 121/76 98 PG Care Time/CCT Total # of Minutes Spent Total Time Spent with Patient: Total time spent is greater than 50% in coordination of care (as documented) at patient's floor/unit and/or counseling patient: Coding Level of Care Code 99012 Subseq Hosp Care Lvl 2 Diagnoses Acute lower GI bleeding K92.2 Colon cancer metastasized to multiple sites C18.9
--- NOTE | 2021-03-25 10:53 | Hospitalist Progress Note ---
Date of Service March 25, 2021 Assessment & Plan (1) Severe anemia: (2) Thrombocytopathia: (3) GI bleed: (4) Metastatic colon cancer to liver: (5) Wound of sacral region: Plan: PROFOUND ANEMIA LIKELY SECONDARY TO GI BLEEDING, IN THE SETTING OF ELIQUIS AND THROMBOCYTOPENIA Per admitting service notes -hb trend: 7.9 > 7.6 > 6.9 > 4 - plt trend: 162 > 202 > 22 Patient received total of 5 units of packed RBCs and 50 pheresis 2 units Hemoglobin increased from 4, now 8.5 Platelet count increased from 13, now 25,000 Based on Protonix drip GI consulted-patient declining further invasive testing at this point Continue Protonix drip for today Discussed with GI DrNicholas Case Agree with advancing diet to clear liquids per patient request Monitor closely Eliquis discontinued for now after discussion with oncologist Dr. Paulie Layne Repeat CBC this afternoon DC Lonsurf per Dr. Layne PANCYTOPENIA INCLUDING NEUTROPENIA SECONDARY TO CHEMOTHERAPY In the setting of GI bleed Discussed with Dr. Paulie Layne Likely secondary to chemotherapy Continue monitoring CBC Neutropenic precautions next SIGMOID COLON ADENOCARCINOMA WITH METASTATIC DISEASE INVOLVING THE LIVER, OMENTUM, STAGE IV DISEASE -CT abd/pelvis: showed sigmoid mass increased in size -pt recently completed radiation treatment 2 weeks ago -Also received chemotherapy 2 days ago Discussed palliative care with patient, and he would like to think about it and discuss with family first next GLUTEAL CLEFT SKIN TEAR: -wound care consult PE and hx of DVT: -DC eliquis per Dr. Layne Patient also status post IVC filter placement Diet: Clear liquid diet DVT PPx: SCD Disposition Anticipate discharge to home when home health services plan of care discussed with patient in detail and at length all questions answered he is understanding, agreeable, comfortable with the plan of care Code Status: FULL CODE Emergency Contact: [phone] Admission and Anticipated Discharge Date Admission Date: March 24, 2021 Subjective Follow-up for profound anemia, suspected GI bleed Etc. Seen resting in bed, nondistressed, comfortable In good spirits States he feels better compared to yesterday No abdominal pain, nausea or vomiting Very mild tinge of blood in the stool per ileostomy No chest pain, shortness of breath, palpitations, dizziness No fevers or chills Requesting for diet No other symptoms Review of Systems Review of Systems: all noted and negative except for above Physical Exam Physical Exam: General- oriented x 3, not in distress, speaks in sentences with no effort or accessory muscle use Head- atraumatic Eyes- PERRL, EOMI, anicteric ENT- oropharynx clear Neck- supple, no JVD, no adenopathy, no thyromegaly; carotids +2/2, no bruits appreciated Lungs- clear to auscultation bilaterally, no rales/wheezes Heart- normal rate, regular rhythm; no murmur, no gallop, no rub appreciated Abdomen- normal bowel sounds, nondistended, soft, nontender, no masses or hepat osplenomegaly Ileostomy in place-with brown stools Extremities-mild left lower leg edema chronic per patient No erythema/warmth/tenderness, no calf tenderness; peripheral pulses intact Neuro- alert, oriented x 3; CN 2-12 grossly intact; motor 5/5 bilaterally;sensation 100% on all extremities; no other gross focal neurologic deficits Skin- warm & dry Results & Data Results & Data ([facility]) Vital Signs (Past 12 Hours) Vital Signs Temp Pulse Pulse Resp BP BP Pulse Ox 03/25/21 08:22 36.8 C 101 H 20 114/65 98 03/25/21 08:00 103 H 03/25/21 07:22 36.8 C 108 H 20 113/69 98 03/25/21 06:52 37.1 C 104 H 18 117/77 99 03/25/21 06:37 36.7 C 108 H 20 110/49 L 98 03/25/21 06:18 37 C 104 H 16 114/71 98 03/25/21 04:22 37.0 C 102 H 22 132/76 96 03/25/21 02:19 37.4 C 104 H 18 102/60 97 03/25/21 02:13 37.4 C 104 H 20 107/63 96 03/25/21 01:13 36.8 C 110 H 20 114/70 92 03/25/21 00:43 37.6 C H 104 H 18 109/65 96 03/25/21 00:28 37.4 C 107 H 18 113/60 97 03/25/21 00:10 37.4 C 105 H 18 115/67 98 03/24/21 23:16 37.3 C 97 H 18 105/65 97 03/24/21 22:50 37.5 C 108 H 18 121/76 98 all noted and reviewed including below
[2021-03-25 16:54] LABS: Hematocrit (blood only) 24.3 % (42-52); Hemoglobin 8.2 g/dL (14.0-18.0); Mean Corpuscular Hemoglobin 30.9 pg (25-34); Mean Corpuscular Hgb Conc 33.7 g/dL (32-36); Mean Corpuscular Volume 91.7 fL (80-100); Platelet Count 23 K/uL (130-400); RDW Coefficient of Variation 17.1 % (11.5-14.5); RDW Standard Deviation 56.7 fL (36.4-46.3); Red Blood Count 2.65 M/uL (4.7-6.1); White Blood Count 0.47 K/uL (4.8-10.8)
[2021-03-25] MEDS ORDERED: HEPARIN 100 UNIT/ML 5ML FLUSH FLUSH PRN (22:40)
[2021-03-26] MEDS: PANTOprazole 40 MG in DEXTROSE 5% 100 ML IV SCH ×3 (02:48→13:18)
[2021-03-26 09:29] LABS: Hematocrit (blood only) 23.9 % (42-52); Hemoglobin 8.1 g/dL (14.0-18.0); Mean Corpuscular Hemoglobin 31.4 pg (25-34); Mean Corpuscular Hgb Conc 33.9 g/dL (32-36); Mean Corpuscular Volume 92.6 fL (80-100); Mean Platelet Volume 10.1 fL (7.4-10.4); Platelet Count 19 K/uL (130-400); RDW Coefficient of Variation 16.8 % (11.5-14.5); RDW Standard Deviation 56.3 fL (36.4-46.3); Red Blood Count 2.58 M/uL (4.7-6.1)
[2021-03-26 09:38] LABS: BUN Creatinine Ratio 20.4 (10-20); Calcium 7.4 mg/dl (8.5-10.1); Creatinine Clr Calc Pharmacy 58.3 ml/min; Est GFR (African American) 58.8 ml/min; Est GFR (Non-African American) 50.7 ml/min; Potassium 2.8 mmol/L (3.5-5.1)
[2021-03-26] MEDS ORDERED: POTASSIUM CHLORIDE CRTAB 20 MEQ TABCR PO SCH (10:15)
--- NOTE | 2021-03-26 14:38 | Hospitalist Progress Note ---
Date of Service March 26, 2021 Assessment & Plan (1) Severe anemia: (2) Thrombocytopathia: (3) GI bleed: (4) Metastatic colon cancer to liver: (5) Wound of sacral region: Plan: PROFOUND ANEMIA LIKELY SECONDARY TO GI BLEEDING, IN THE SETTING OF ELIQUIS AND THROMBOCYTOPENIA Per admitting service notes -hb trend: 7.9 > 7.6 > 6.9 > 4 - plt trend: 162 > 202 > 22 Patient received total of 5 units of packed RBCs and 50 pheresis 2 units Hemoglobin increased from 4, now stable around 8 Platelet count increased from 13, now 19-25,000 placed on Protonix drip GI consulted-patient declining further invasive testing at this point Discussed with GI Dr. Aquino diet advanced gradually Eliquis discontinued for now after discussion with oncologist Dr. Paulie Layne DC Lonsurf per Dr. Layne Hg stable at 8, no signs of recurrence of GI bleed patient would like to be discharged today to be at home with family encouraged to stay at least 1 more day, but he prefers to go home today and ff up with Dr. Layne this week PANCYTOPENIA INCLUDING NEUTROPENIA SECONDARY TO CHEMOTHERAPY In the setting of GI bleed Discussed with Dr. Paulie Layne Likely secondary to chemotherapy Neutropenic precautions ordered advised to stay at home, avoid visitors, sick contacts until ff up with Dr. Layne SIGMOID COLON ADENOCARCINOMA WITH METASTATIC DISEASE INVOLVING THE LIVER, OMENTUM, STAGE IV DISEASE -CT abd/pelvis: showed sigmoid mass increased in size -pt recently completed radiation treatment 2 weeks ago -Also received chemotherapy 2 days ago Discussed palliative care with patient, and he would like to think about it and discuss with family first next GLUTEAL CLEFT SKIN TEAR: -wound care consult PE and hx of DVT: -DC eliqupolly per Dr. Layne Patient also status post IVC filter placement Diet: Clear liquid diet DVT PPx: SCD Disposition d/c home when home health services plan of care discussed with patient in detail and at length all questions answered he is understanding, agreeable, comfortable with the plan of care Admission and Anticipated Discharge Date Admission Date: March 24, 2021 Subjective ff up for anemia, etc seen resting in bed, comfortable in good spirits states he feels much better overall no abdominal pain, nausea/vomiting tolerating diet well no melena/hematochezia per ileostomy output denies chest pain, dyspnea, palpitations, dizziness no other symptoms states he is ready and would like to be discharged today Review of Systems Review of Systems: all noted and negative except for aboves Physical Exam Physical Exam: General- oriented x 3, not in distress, speaks in sentences with no effort or accessory muscle use Eyes- anicteric Neck- no JVD Lungs- clear breath sounds bilaterally, no rales/wheezes Heart- normal rate, regular rhythm; no murmurs Abdomen- normal bowel sounds, nondistended, soft, nontender ileostomy in place Extremities- no pretibial edema, no calf tenderness Neuro- alert, oriented x 3; no gross focal neurologic deficits Skin- warm & dry Results & Data Results & Data ([facility]) Vital Signs (Past 12 Hours) Vital Signs Temp Pulse Pulse Resp BP Pulse Ox 03/26/21 10:36 37.6 C H 109 H 18 122/73 98 03/26/21 08:12 37.4 C 111 H 20 104/61 96 03/26/21 08:00 106 H 03/26/21 04:29 37.9 C H 110 H 18 115/67 98 all noted and reviewed including below
--- NOTE | 2021-03-26 14:47 | Discharge Summary ---
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 Pt also complained of SOB with exertion but denied any CP At bedside: he denied any acute CP, SOB, abd pain, N/V. In the ER pt received 4 units of PRBC and 1 unit of platelet Admission Exam (Per Admitting) Constitutional General:.mildy cachetic, NAD, well developed, well nourished HEENT:.pale b/l conjunctiva, Normocephalic and atraumatic, EOMI, Sclera is non- icteric Lungs:. No signs of respiratory distress, CTA, no wheezing or crackles Heart:. Normal S1, S2, no murmur Abdominal:.ileostomy in place (watery stool with trace blood), ND, Soft, NT, normal BS MSK:mild pitting edema of LLE Skin:open superficial wound in the gluteal cleft Psych:. AAOx3, normal affect Discharge Data Consultations 03/24/21 11:28 ED Decision to Admit Stat 03/24/21 13:58 Consult Gastroenterology Routine 03/24/21 19:05 Consult Hematology Routine Procedures Performed ABDOMEN AND PELVIS CT WITH IV CONTRAST CT DOSE: 935.91 mGy.cm HISTORY: GI bleed. TECHNIQUE: Multiaxial CT images of the abdomen and pelvis were performed following the use of intravenous contrast. A dose lowering technique was utilized adhering to the principles of ALARA. COMPARISON STUDY: Abdomen and pelvis CT 01/16/2021. FINDINGS: Slight increase in size in the metastatic pulmonary nodules seen within the lung bases. There are small bilateral pleural effusions which have also increased in size. No suspicious lytic or blastic osseous lesions. There are a few hypodense lesions within the liver which have slightly increased in size. These are consistent with metastatic disease. Dominant lesion within the right hepatic lobe measures 3.2 cm. The gallbladder, spleen, adrenal glands, pancreas are unremarkable. Right renal cysts are again noted. No right-sided hydronephrosis. No significant change in the moderate left hydroureteronephrosis to the level of the distal left ureter. This is likely obstructed by the infiltrative sigmoid mass. An IVC filter is in good position. Small amount of ascites is again noted. This has slightly improved in the interval. The main portal vein is patent. No retroperitoneal lymphadenopathy. Moderate body wall edema. Multiple omental irregular masses are again noted consistent with peritoneal carcinomatosis. There is again noted a 3 cm soft tissue nodule within the fat-containing hiatus hernia. This is consistent with metastatic disease and has increased in size. There is again noted a metallic stent within the sigmoid colon which is unchanged in position. Gas and debris within the stent suggests patency. The infiltrative/irregular sigmoid mass surrounding the stent appears to have slightly increased in size. This continues to invade and extend into the bladder dome. There is a 3.7 cm soft tissue component seen within the bladder. Soft tissue tumor extends into the anterior abdominal wall at the midline incision as well as the perirectal space. This is similar to the prior study. Bladder calculi, unchanged. Ventral abdominal wall hernia containing loops of bowel remains unchanged. Is also a left lower quadrant ostomy. The colon proximal to the stent demonstrates increased distention and is filled with gas and fluid. There is focal narrowing immediately proximal to the stent at the sigmoid colon. Therefore, this favors a developing large bowel obstruction. The small bowel are normal in caliber. IMPRESSION: 1. Progressive metastatic disease within the chest, abdomen, pelvis as described above. 2. The large infiltrative sigmoid mass is also increased in size as described above. Extension into the bladder dome, anterior abdominal wall/incision, and perirectal space is again noted. 3. The sigmoid stent is unchanged in position. There is progressive dilatation of the large bowel proximal to the sigmoid stent with focal decompression of the sigmoid colon immediately proximal to the sigmoid stent. Therefore, this favors a developing large bowel obstruction with the transition point immediately proximal to the sigmoid stent. 4. Small bilateral pleural effusions have increased in size. 5. No change in the left-sided hydronephrosis secondary to the sigmoid mass. 6. Additional findings as described above. ACT 112: Negative or not required by law. XR chest 1V portable HISTORY: weakness COMPARISON: Chest 01/30/2021. FINDINGS: No pneumothorax. No pleural effusions. The heart is normal in size. No focal lung consolidations to suggest pneumonia. No evidence for pulmonary edema. Left subclavian Port-A-Cath terminates at the SVC. IMPRESSION: No acute process. Hospital Course (1) Severe anemia: (2) Thrombocytopathia: (3) GI bleed: (4) Metastatic colon cancer to liver: (5) Wound of sacral region: PROFOUND ANEMIA LIKELY SECONDARY TO GI BLEEDING, IN THE SETTING OF ELIQUIS AND THROMBOCYTOPENIA Per admitting service notes -hb 4 - plt trend 22 Patient received total of 5 units of packed RBCs and plateletpheresis 2 units Hemoglobin increased from 4, now stable around 8 Platelet count increased from 13, now 19-25,000 placed on Protonix drip GI consulted-patient declining further invasive testing at this point Discussed with GI Dr. Aquino diet advanced gradually Eliquis discontinued for now after discussion with oncologist Dr. Paulie Layne DC [place] per Dr. Layne Hg stable at 8, no signs of recurrence of GI bleed patient would like to be discharged today to be at home with family encouraged to stay at least 1 more day, but he prefers to go home today and ff up with Dr. Layne this week PANCYTOPENIA INCLUDING NEUTROPENIA SECONDARY TO CHEMOTHERAPY In the setting of GI bleed Discussed with Dr. Paulie Layne Likely secondary to chemotherapy Neutropenic precautions ordered advised to stay at home, avoid visitors, sick contacts until ff up with Dr. Layne SIGMOID COLON ADENOCARCINOMA WITH METASTATIC DISEASE INVOLVING THE LIVER, OMENTUM, STAGE IV DISEASE -CT abd/pelvis: showed sigmoid mass increased in size -pt recently completed radiation treatment 2 weeks ago -Also received chemotherapy 2 days ago Discussed palliative care with patient, and he would like to think about it and discuss with family first next GLUTEAL CLEFT SKIN TEAR: -wound care consult PE and hx of DVT: -DC eliquis per Dr. Layne Patient also status post IVC filter placement Diet: Clear liquid diet DVT PPx: SCD Disposition d/c home when home health services plan of care discussed with patient in detail and at length all questions answered he is understanding, agreeable, comfortable with the plan of care
[2021-03-27 10:31] LABS: White Blood Count 0.32 K/uL (4.8-10.8)
== END 2021-03-26 18:02 | disposition home health service (06) | DRG 377 ==
LOC: ED 09:43 → SUATTDRO 12:08 → 2S 12:08